=== PATIENT | female | born 1970 | race Caucasian/White ===

== ENCOUNTER 2016-09-02 18:44 | Emergency (ER) | payer MEDICAID, OTHER ==
[~2016-09-02] VITALS: Ht 170.2 cm; Wt 56.8 kg
[~2016-09-02 18:44] MED LIST: AMLO2.5T PO; FERR-89 PO; LURA80 PO
[2016-09-02 20:35] LABS: BASOPHILS % (AUTO) 0.1 % (0.0-2.0); EOSINOPHILS % (AUTO) 1.3 % (1.0-6.0); HEMATOCRIT 40.9 % (36-46); LYMPHOCYTES # (AUTO) 1.1 K/uL (1.0-4.8); LYMPHOCYTES % (AUTO) 17.1 % (22.0-44.0); MEAN CORPUSCULAR HEMOGLOBIN 26.3 pg (26.0-34.0); MEAN CORPUSCULAR HGB CONC 31.9 G/dL (31.0-37.0); MEAN CORPUSCULAR VOLUME 82 fL (80-100); MONOCYTES # (AUTO) 0.3 K/uL (0.1-1.0); MONOCYTES % (AUTO) 4.5 % (2.0-9.0); NEUTROPHILS # (AUTO) 5.1 K/uL (1.8-7.7); PLATELET COUNT (AUTO) 209 K/uL (150-450); RED BLOOD CELL COUNT(AUTO) 4.97 MIL/uL (4.00-5.20); RED CELL DISTRIBUTION WIDTH 16.8 % (11.5-14.5); WHITE BLOOD COUNT (AUTO) 6.6 K/uL (4.5-11.0)
[2016-09-02 20:51] LABS: ANION GAP 10 mmol/L (8-16); CALCIUM, TOTAL 8.9 mg/dL (8.8-10.5); CARBON DIOXIDE 25 mmol/L (22-29); CHLORIDE 103 mmol/L (98-107); CREATININE 0.71 mg/dL (0.60-1.30); GLOMERULAR FILTR. RATE CALC > 60 mL/min (>60); POTASSIUM 3.7 mmol/L (3.5-5.1); SODIUM SERUM 138 mmol/L (136-145); UREA NITROGEN, BLOOD 21 mg/dL (7-18)
[2016-09-02 20:57] LABS: ALANINE AMINOTRANSFERASE 27 U/L (12-78); ALBUMIN 4.2 g/dL (3.4-5.0); ASPARTATE AMINOTRANSFERASE 20 U/L (15-37); BILIRUBIN,TOTAL 0.6 mg/dL (0.1-1.0); TOTAL PROTEIN, SERUM 7.6 g/dL (6.4-8.2)
[2016-09-02] MEDS ORDERED: LORazepam 2 MG TABLET PO ONE (21:15)
[2016-09-02] MEDS ORDERED: HALOPERIDOL 5 MG TABLET PO ONE (21:15)
[2016-09-03 10:35] VITALS: BP 14/99
== END 2016-09-03 10:50 | disposition home or self-care (01) ==
LOC: EMS 18:49
DX: F29 Unspecified psychosis not due to a substance or known physiological condition (principal); F15.10 Other stimulant abuse, uncomplicated; F31.9 Bipolar disorder, unspecified; F20.9 Schizophrenia, unspecified; F12.90 Cannabis use, unspecified, uncomplicated; F11.90 Opioid use, unspecified, uncomplicated; F19.90 Other psychoactive substance use, unspecified, uncomplicated; Z88.8 Allergy status to other drugs, medicaments and biological substances
CPT/HCPCS: 36415; 80053; 80307; 84703; 85025; 99284; G0480

== ENCOUNTER 2016-10-01 15:37 | Emergency (ER) | payer OTHER ==
[~2016-10-01] VITALS: Ht 170.2 cm; Wt 68.1 kg
[2016-10-01 15:44] VITALS: BP 148/100
[2016-10-01] MEDS ORDERED: RISP.5 PO (15:51)
[2016-10-01 16:43] LABS: BASOPHILS % (AUTO) 0.4 % (0.0-2.0); EOSINOPHILS % (AUTO) 0.5 % (1.0-6.0); HEMATOCRIT 37.3 % (36-46); HEMOGLOBIN 12.6 g/dL (12.0-16.0); LYMPHOCYTES # (AUTO) 1.7 K/uL (1.0-4.8); LYMPHOCYTES % (AUTO) 28.8 % (22.0-44.0); MEAN CORPUSCULAR HEMOGLOBIN 27.5 pg (26.0-34.0); MEAN CORPUSCULAR HGB CONC 33.7 G/dL (31.0-37.0); MEAN CORPUSCULAR VOLUME 81 fL (80-100); MONOCYTES # (AUTO) 0.5 K/uL (0.1-1.0); MONOCYTES % (AUTO) 8.7 % (2.0-9.0); NEUTROPHILS # (AUTO) 3.7 K/uL (1.8-7.7); NEUTROPHILS % (AUTO) 61.6 % (40.0-70.0); PLATELET COUNT (AUTO) 209 K/uL (150-450); RED BLOOD CELL COUNT(AUTO) 4.59 MIL/uL (4.00-5.20); RED CELL DISTRIBUTION WIDTH 16.1 % (11.5-14.5)
[2016-10-01 16:54] LABS: ANION GAP 9 mmol/L (8-16); CALCIUM, TOTAL 8.8 mg/dL (8.8-10.5); CARBON DIOXIDE 25 mmol/L (22-29); CHLORIDE 106 mmol/L (98-107); CREATININE 0.72 mg/dL (0.60-1.30); GLOMERULAR FILTR. RATE CALC > 60 mL/min (>60); POTASSIUM 4.1 mmol/L (3.5-5.1); SODIUM SERUM 140 mmol/L (136-145); UREA NITROGEN, BLOOD 13 mg/dL (7-18)
[2016-10-01 17:00] LABS: ALANINE AMINOTRANSFERASE 29 U/L (12-78); ALBUMIN 4.2 g/dL (3.4-5.0); ASPARTATE AMINOTRANSFERASE 20 U/L (15-37); BILIRUBIN,TOTAL 0.4 mg/dL (0.1-1.0); TOTAL PROTEIN, SERUM 7.7 g/dL (6.4-8.2)
== END 2016-10-01 19:07 | disposition home or self-care (01) ==
LOC: EEVIPCON 15:39 → EMS 15:39
DX: F20.9 Schizophrenia, unspecified (principal); F15.10 Other stimulant abuse, uncomplicated; F31.9 Bipolar disorder, unspecified; F12.90 Cannabis use, unspecified, uncomplicated; F11.90 Opioid use, unspecified, uncomplicated; F19.90 Other psychoactive substance use, unspecified, uncomplicated; Z88.8 Allergy status to other drugs, medicaments and biological substances
CPT/HCPCS: 36415; 80053; 80307; 82962; 85025; 99284; G0480

== ENCOUNTER 2016-11-29 | Emergency (ER) | payer MEDICAID, OTHER ==
[~2016-11-29] VITALS: Ht 167.6 cm; Wt 56.0 kg
[~2016-11-29] MED LIST changes: -AMLO2.5T PO; -FERR-89 PO; -LURA80 PO; +RISP.5 PO
[2016-11-29 00:57] LABS: BASOPHILS % (AUTO) 0.7 % (0.0-2.0); EOSINOPHILS % (AUTO) 2.1 % (1.0-6.0); HEMATOCRIT 34.1 % (36-46); HEMOGLOBIN 11.6 g/dL (12.0-16.0); LYMPHOCYTES # (AUTO) 1.7 K/uL (1.0-4.8); LYMPHOCYTES % (AUTO) 29.3 % (22.0-44.0); MEAN CORPUSCULAR HEMOGLOBIN 28.2 pg (26.0-34.0); MEAN CORPUSCULAR HGB CONC 34.1 G/dL (31.0-37.0); MEAN CORPUSCULAR VOLUME 83 fL (80-100); MONOCYTES # (AUTO) 0.7 K/uL (0.1-1.0); MONOCYTES % (AUTO) 11.8 % (2.0-9.0); NEUTROPHILS # (AUTO) 3.2 K/uL (1.8-7.7); NEUTROPHILS % (AUTO) 56.1 % (40.0-70.0); PLATELET COUNT (AUTO) 175 K/uL (150-450); RED BLOOD CELL COUNT(AUTO) 4.13 MIL/uL (4.00-5.20); RED CELL DISTRIBUTION WIDTH 15.9 % (11.5-14.5); WHITE BLOOD COUNT (AUTO) 5.7 K/uL (4.5-11.0)
[2016-11-29] MEDS ORDERED: PERTUSS(ACELL),DIPH,TET VAC/PF 0.5 ML VIAL IM ONE (01:00)
[2016-11-29 01:05] LABS: ANION GAP 7 mmol/L (8-16); CALCIUM, TOTAL 8.6 mg/dL (8.8-10.5); CARBON DIOXIDE 27 mmol/L (22-29); CHLORIDE 106 mmol/L (98-107); CREATININE 0.67 mg/dL (0.60-1.30); GLOMERULAR FILTR. RATE CALC > 60 mL/min (>60); POTASSIUM 3.5 mmol/L (3.5-5.1); SODIUM SERUM 140 mmol/L (136-145); UREA NITROGEN, BLOOD 16 mg/dL (7-18)
[2016-11-29 01:13] LABS: ALANINE AMINOTRANSFERASE 19 U/L (12-78); ALBUMIN 3.3 g/dL (3.4-5.0); ASPARTATE AMINOTRANSFERASE 18 U/L (15-37); BILIRUBIN,TOTAL 0.3 mg/dL (0.1-1.0); TOTAL PROTEIN, SERUM 6.5 g/dL (6.4-8.2)
[2016-11-29] MEDS: MUPIROCIN CALCIUM 2% 22 GM OINTMENT TP ONE ×2 (01:25→01:29)
[2016-11-29 02:22] LABS: ADD UA MICROSCOPIC NO; APPEARANCE,URINE CLEAR (CLEAR); GLUCOSE, URINE (UA) NEGATIVE (NEGATIVE); KETONES,URINE NEGATIVE (NEGATIVE); LEUKOCYTE ESTERASE ,URINE NEGATIVE (NEGATIVE); OCCULT BLOOD,URINE NEGATIVE (NEGATIVE); PROTEIN,URINE NEGATIVE (NEGATIVE)
[2016-11-29 03:03] VITALS: BP 128/63
[2016-12-04] MEDS ORDERED: VITAD1000 PO (08:13)
[2016-12-04] MEDS ORDERED: HYDR-4031 PO (08:13)
== END 2016-11-29 04:02 | disposition home or self-care (01) ==
LOC: EMS 00:02
DX: S91.312A Laceration without foreign body, left foot, initial encounter (principal); F20.9 Schizophrenia, unspecified; F31.9 Bipolar disorder, unspecified; F15.10 Other stimulant abuse, uncomplicated; F12.90 Cannabis use, unspecified, uncomplicated; F11.90 Opioid use, unspecified, uncomplicated; Z88.8 Allergy status to other drugs, medicaments and biological substances; X58.XXXA Exposure to other specified factors, initial encounter; Y93.89 Activity, other specified; Y92.89 Other specified places as the place of occurrence of the external cause; Y99.8 Other external cause status
CPT/HCPCS: 36415; 80053; 80307; 81003; 84703; 85025; 90471; 90715; 99284; G0480

== ENCOUNTER 2017-02-12 09:47 | Inpatient (IN) | payer MEDICAID ==
[~2017-02-12] VITALS: Ht 167.6 cm; Wt 78.0 kg
[~2017-02-12 09:47] MED LIST changes: +HYDR-4031 PO; +VITAD1000 PO
[2017-02-12] MEDS ORDERED: HALOPERIDOL 5 MG TABLET PO PRN (11:00)
[2017-02-12] MEDS: RisperiDONE 3 MG TABLET PO SCH ×2 (11:00→16:34)
[2017-02-12] MEDS ORDERED: ZOLPIDEM TARTRATE 10 MG TABLET PO PRN (11:00)
[2017-02-12] MEDS ORDERED: RISP3TAB44 PO (11:05)
[2017-02-12 12:11] VITALS: BP 155/106
[2017-02-12] MEDS ORDERED: HALOPERIDOL LACTATE 5 MG/ML VIAL ONE (12:44)
[2017-02-12] MEDS ORDERED: DiphenhydrAMINE HCL 50 MG/ML VIAL ONE (12:44)
[2017-02-12] MEDS ORDERED: LORazepam 2 MG/ML VIAL ONE (12:44)
[2017-02-12] MEDS ORDERED: LORazepam 2 MG/ML VIAL IM ONE (12:45)
[2017-02-12] MEDS ORDERED: DiphenhydrAMINE HCL 50 MG/ML VIAL IM ONE (12:45)
[2017-02-12] MEDS ORDERED: HALOPERIDOL LACTATE 5 MG/ML VIAL IM ONE (12:45)
[2017-02-12] MEDS ORDERED: INFLUENZA VIRUS VACCINE QVS 2017-18 (3YR+)/PF 60 MCG/0.5 ML SYRINGE IM ONE (14:00)
[2017-02-12 16:19] VITALS: BP 114/73
[2017-02-13] MEDS: RisperiDONE 3 MG TABLET PO SCH ×2 (09:26→16:32)
[2017-02-13 16:08] VITALS: BP 153/65
[2017-02-14 07:13] VITALS: BP 140/62
[2017-02-14 08:34] VITALS: BP 102/69
[2017-02-14] MEDS: RisperiDONE 3 MG TABLET PO SCH ×2 (08:48→16:01)
[2017-02-14] MEDS ORDERED: DiphenhydrAMINE HCL 50 MG/ML VIAL IM ONE (12:00)
[2017-02-14 16:14] VITALS: BP 149/68
[2017-02-15 07:08] VITALS: BP 136/7
[2017-02-15] MEDS: RisperiDONE 3 MG TABLET PO SCH ×2 (08:03→16:59)
[2017-02-15 09:31] LABS: ALANINE AMINOTRANSFERASE 25 U/L (12-78); ALBUMIN 3.4 g/dL (3.4-5.0); ANION GAP 5 mmol/L (8-16); ASPARTATE AMINOTRANSFERASE 24 U/L (15-37); BILIRUBIN,TOTAL 0.3 mg/dL (0.1-1.0); CALCIUM, TOTAL 8.7 mg/dL (8.8-10.5); CARBON DIOXIDE 27 mmol/L (22-29); CHLORIDE 104 mmol/L (98-107); CHOL/HDL RATIO 2.4 (3.9-5.7); CREATININE 0.54 mg/dL (0.60-1.30); GLOMERULAR FILTR. RATE CALC > 60 mL/min (>60); POTASSIUM 3.9 mmol/L (3.5-5.1); SODIUM SERUM 136 mmol/L (136-145); THYROID STIMULATING HORMONE 0.78 uIU/mL (0.36-3.74); TOTAL PROTEIN, SERUM 6.7 g/dL (6.4-8.2); UREA NITROGEN, BLOOD 15 mg/dL (7-18)
[2017-02-15 16:08] VITALS: BP 109/73
[2017-02-15] MEDS: LORazepam 1 MG TABLET PO PRN (16:19)
[2017-02-16 04:04] VITALS: BP 130/74
[2017-02-16 07:58] LABS: BASOPHILS % (AUTO) 0.4 % (0.0-2.0); EOSINOPHILS % (AUTO) 2.4 % (1.0-6.0); HEMOGLOBIN 13.3 g/dL (12.0-16.0); LYMPHOCYTES # (AUTO) 1.5 K/uL (1.0-4.8); LYMPHOCYTES % (AUTO) 20.9 % (22.0-44.0); MEAN CORPUSCULAR HEMOGLOBIN 28.2 pg (26.0-34.0); MEAN CORPUSCULAR VOLUME 83 fL (80-100); MONOCYTES # (AUTO) 0.5 K/uL (0.1-1.0); MONOCYTES % (AUTO) 6.5 % (2.0-9.0); NEUTROPHILS # (AUTO) 5.1 K/uL (1.8-7.7); NEUTROPHILS % (AUTO) 69.8 % (40.0-70.0); PLATELET COUNT (AUTO) 202 K/uL (150-450); RED BLOOD CELL COUNT(AUTO) 4.71 MIL/uL (4.00-5.20); RED CELL DISTRIBUTION WIDTH 16.2 % (11.5-14.5); WHITE BLOOD COUNT (AUTO) 7.3 K/uL (4.5-11.0)
[2017-02-16] MEDS: RisperiDONE 3 MG TABLET PO SCH ×2 (08:20→16:12)
[2017-02-16 16:12] VITALS: BP 139/86
[2017-02-17 08:30] VITALS: BP 115/68
[2017-02-17] MEDS: RisperiDONE 3 MG TABLET PO SCH ×2 (09:28→16:30)
[2017-02-17 16:09] VITALS: BP 125/79
[2017-02-18 02:05] VITALS: BP 117/68
[2017-02-18] MEDS: RisperiDONE 3 MG TABLET PO SCH ×2 (08:16→16:10)
[2017-02-18 08:41] VITALS: BP 129/74
[2017-02-18 16:00] VITALS: BP 124/83
[2017-02-18] MEDS: LORazepam 1 MG TABLET PO PRN (16:10)
[2017-02-19 06:21] VITALS: BP 127/68
[2017-02-19] MEDS: RisperiDONE 3 MG TABLET PO SCH ×2 (08:26→16:16)
[2017-02-19] MEDS: LORazepam 1 MG TABLET PO PRN (08:26)
[2017-02-19 08:50] VITALS: BP 123/80
[2017-02-19 16:34] VITALS: BP 118/63
== END 2017-02-19 19:30 | disposition home or self-care (01) | DRG 750 ==
LOC: B3A 10:59
PROVIDERS: ADMIT Psychiatry & Neurology Psychiatry; ATTEND Psychiatry & Neurology Psychiatry
DX: F25.9 Schizoaffective disorder, unspecified (principal); J44.9 Chronic obstructive pulmonary disease, unspecified; D64.9 Anemia, unspecified; F15.90 Other stimulant use, unspecified, uncomplicated; Z88.8 Allergy status to other drugs, medicaments and biological substances; Z87.440 Personal history of urinary (tract) infections; Z28.21 Immunization not carried out because of patient refusal
CPT/HCPCS: 82306; 84436; 84439; 84443; 90471; J1200; J1630; J2060

== ENCOUNTER 2017-03-04 09:51 | Inpatient (IN) | payer MEDICAID, OTHER ==
[~2017-03-04] VITALS: Ht 167.6 cm; Wt 74.1 kg
[~2017-03-04 09:51] MED LIST changes: -HYDR-4031 PO; -RISP.5 PO; +RISP3TAB44 PO; -VITAD1000 PO
[2017-03-04 10:38] LABS: BASOPHILS # (AUTO) 0.02 K/uL (0.00-0.20); BASOPHILS % (AUTO) 0.4 % (0.0-2.0); EOSINOPHILS # (AUTO) 0.01 K/uL (0.00-0.70); HEMATOCRIT 36.9 % (36-46); HEMOGLOBIN 12.2 g/dL (12.0-16.0); LYMPHOCYTES # (AUTO) 1.3 K/uL (1.0-4.8); LYMPHOCYTES % (AUTO) 21.6 % (22.0-44.0); MEAN CORPUSCULAR HEMOGLOBIN 27.7 pg (26.0-34.0); MEAN CORPUSCULAR VOLUME 84 fL (80-100); MONOCYTES # (AUTO) 0.5 K/uL (0.1-1.0); MONOCYTES % (AUTO) 7.5 % (2.0-9.0); NEUTROPHILS # (AUTO) 4.3 K/uL (1.8-7.7); NEUTROPHILS % (AUTO) 70.4 % (40.0-70.0); PLATELET COUNT (AUTO) 188 K/uL (150-450); RED BLOOD CELL COUNT(AUTO) 4.39 MIL/uL (4.00-5.20); RED CELL DISTRIBUTION WIDTH 16.8 % (11.5-14.5); WHITE BLOOD COUNT (AUTO) 6.1 K/uL (4.5-11.0)
[2017-03-04 10:52] LABS: ANION GAP 8 mmol/L (8-16); CALCIUM, TOTAL 8.7 mg/dL (8.8-10.5); CARBON DIOXIDE 27 mmol/L (22-29); CHLORIDE 100 mmol/L (98-107); CREATININE 0.52 mg/dL (0.60-1.30); GLOMERULAR FILTR. RATE CALC > 60 mL/min (>60); POTASSIUM 3.3 mmol/L (3.5-5.1); SODIUM SERUM 135 mmol/L (136-145); UREA NITROGEN, BLOOD 7 mg/dL (7-18)
[2017-03-04 10:57] LABS: ALANINE AMINOTRANSFERASE 33 U/L (12-78); ALBUMIN 3.6 g/dL (3.4-5.0); ASPARTATE AMINOTRANSFERASE 25 U/L (15-37); BILIRUBIN,TOTAL 0.4 mg/dL (0.1-1.0)
[2017-03-04] MEDS ORDERED: LORazepam 2 MG TABLET PO PRN (11:15)
[2017-03-04] MEDS ORDERED: HALOPERIDOL 5 MG TABLET PO PRN (11:15)
[2017-03-04] MEDS ORDERED: ZOLPIDEM TARTRATE 10 MG TABLET PO PRN (11:15)
[2017-03-04] MEDS ORDERED: HALOPERIDOL LACTATE 5 MG/ML VIAL IM ONE (11:30)
[2017-03-04] MEDS ORDERED: DiphenhydrAMINE HCL 50 MG/ML VIAL IM ONE (11:30)
[2017-03-04] MEDS ORDERED: LORazepam 2 MG/ML VIAL IM ONE (11:30)
[2017-03-04] MEDS ORDERED: POTASSIUM CHLORIDE 20 MEQ ER TABLET PO ONE (11:45)
[2017-03-04 12:16] VITALS: BP 132/86
[2017-03-04] MEDS: RisperiDONE 3 MG TABLET PO SCH (17:00)
[2017-03-05] MEDS ORDERED: INFLUENZA VIRUS VACCINE QVS 2017-18 (3YR+)/PF 60 MCG/0.5 ML SYRINGE IM ONE (07:15)
[2017-03-05] MEDS ORDERED: -PHARMACY VACCINE NOTE- MISC ONE ×2 (07:15)
[2017-03-05] MEDS: RisperiDONE 3 MG TABLET PO SCH ×2 (08:35→17:05)
[2017-03-05] MEDS: CHOLECALCIFEROL (VIT D3) 1,000 UNITS TABLET PO SCH (08:35)
[2017-03-05 18:03] VITALS: BP 131/88
[2017-03-06 08:26] VITALS: BP 107/58
[2017-03-06] MEDS: CHOLECALCIFEROL (VIT D3) 1,000 UNITS TABLET PO SCH (08:31)
[2017-03-06] MEDS: RisperiDONE 3 MG TABLET PO SCH ×2 (08:31→16:36)
[2017-03-07 08:29] VITALS: BP 113/69
[2017-03-07] MEDS: CHOLECALCIFEROL (VIT D3) 1,000 UNITS TABLET PO SCH (09:34)
[2017-03-07] MEDS: RisperiDONE 3 MG TABLET PO SCH (09:34)
[2017-03-07] MEDS ORDERED: CHOL200016 PO (10:17)
== END 2017-03-07 10:48 | disposition home or self-care (01) | DRG 750 ==
LOC: EMS 09:53 → 3EC 11:46
PROVIDERS: ADMIT Psychiatry & Neurology Psychiatry; ATTEND Psychiatry & Neurology Psychiatry
DX: F25.0 Schizoaffective disorder, bipolar type (principal); R45.851 Suicidal ideations; Z91.19 Patient's noncompliance with other medical treatment and regimen; F15.10 Other stimulant abuse, uncomplicated; F12.90 Cannabis use, unspecified, uncomplicated; I34.1 Nonrheumatic mitral (valve) prolapse; F11.90 Opioid use, unspecified, uncomplicated; E87.6 Hypokalemia; Z59.0 Homelessness; Z87.440 Personal history of urinary (tract) infections; Z88.8 Allergy status to other drugs, medicaments and biological substances; Z79.899 Other long term (current) drug therapy
CPT/HCPCS: 87081; 96372; 99285; G0480; J1200; J1630; J2060

== ENCOUNTER 2017-04-22 08:08 | Inpatient (IN) | payer MEDICAID ==
[~2017-04-22] VITALS: Ht 177.8 cm; Wt 73.1 kg
[~2017-04-22 08:08] MED LIST changes: +CHOL200016 PO
[2017-04-22 09:00] VITALS: BP 153/93
[2017-04-22] MEDS ORDERED: ZOLPIDEM TARTRATE 10 MG TABLET PO PRN (09:00)
[2017-04-22] MEDS ORDERED: INFLUENZA VIRUS VACCINE QVS 2017-18 (3YR+)/PF 60 MCG/0.5 ML SYRINGE IM ONE (10:15)
[2017-04-22] MEDS: RisperiDONE 3 MG TABLET PO SCH ×2 (10:46→16:45)
[2017-04-22 16:04] VITALS: BP 109/60
[2017-04-23 08:27] LABS: BASOPHILS % (AUTO) 0.2 % (0.0-2.0); EOSINOPHILS % (AUTO) 2.6 % (1.0-6.0); HEMATOCRIT 37.4 % (36-46); HEMOGLOBIN 12.6 g/dL (12.0-16.0); LYMPHOCYTES # (AUTO) 1.6 K/uL (1.0-4.8); LYMPHOCYTES % (AUTO) 24.6 % (22.0-44.0); MEAN CORPUSCULAR HEMOGLOBIN 28.1 pg (26.0-34.0); MEAN CORPUSCULAR HGB CONC 33.6 G/dL (31.0-37.0); MEAN CORPUSCULAR VOLUME 84 fL (80-100); MONOCYTES # (AUTO) 0.5 K/uL (0.1-1.0); MONOCYTES % (AUTO) 7.4 % (2.0-9.0); NEUTROPHILS # (AUTO) 4.2 K/uL (1.8-7.7); NEUTROPHILS % (AUTO) 65.2 % (40.0-70.0); PLATELET COUNT (AUTO) 183 K/uL (150-450); RED BLOOD CELL COUNT(AUTO) 4.47 MIL/uL (4.00-5.20); RED CELL DISTRIBUTION WIDTH 16.8 % (11.5-14.5)
[2017-04-23 08:43] LABS: HEMOGLOBIN A1C 5.7 % (4.5-6.2)
[2017-04-23 08:44] VITALS: BP 110/60
[2017-04-23 08:57] LABS: ALANINE AMINOTRANSFERASE 21 U/L (12-78); ALBUMIN 3.4 g/dL (3.4-5.0); ALKALINE PHOSPHATASE 50 U/L (46-116); ANION GAP 5 mmol/L (8-16); ASPARTATE AMINOTRANSFERASE 18 U/L (15-37); BILIRUBIN,TOTAL 0.4 mg/dL (0.1-1.0); CALCIUM, TOTAL 8.8 mg/dL (8.8-10.5); CARBON DIOXIDE 28 mmol/L (22-29); CHLORIDE 104 mmol/L (98-107); CHOL/HDL RATIO 1.8 (3.9-5.7); CHOLESTEROL 142 mg/dL (131-200); CREATININE 0.65 mg/dL (0.60-1.30); FREE T4 (FREE THYROXINE) 1.01 ng/dL (0.76-1.46); GLOMERULAR FILTR. RATE CALC > 60 mL/min (>60); GLUCOSE,RANDOM 88 mg/dL (70-110); HCG,QUANTITATIVE < 1 mIU/mL (0-6); HDL CHOLESTEROL 80 mg/dL (40-60); LDL CHOL (CALC.) 57 mg/dL (0-130); SODIUM SERUM 137 mmol/L (136-145); THYROID STIMULATING HORMONE 0.61 uIU/mL (0.36-3.74); TOTAL PROTEIN, SERUM 6.6 g/dL (6.4-8.2); TRIGLYCERIDES 26 mg/dL (15-150); UREA NITROGEN, BLOOD 19 mg/dL (7-18)
[2017-04-23] MEDS: RisperiDONE 3 MG TABLET PO SCH ×2 (09:20→16:53)
[2017-04-23] MEDS: CHOLECALCIFEROL (VIT D3) 1,000 UNITS TABLET PO SCH (09:20)
[2017-04-23 16:05] VITALS: BP 118/66
[2017-04-24 07:19] VITALS: BP 121/78
[2017-04-24] MEDS: RisperiDONE 3 MG TABLET PO SCH ×2 (08:51→16:13)
[2017-04-24] MEDS: CHOLECALCIFEROL (VIT D3) 1,000 UNITS TABLET PO SCH (08:51)
[2017-04-24 16:30] VITALS: BP 128/73
[2017-04-24] MEDS: HALOPERIDOL 5 MG TABLET PO PRN (16:49)
[2017-04-24] MEDS: LORazepam 2 MG TABLET PO PRN (16:49)
[2017-04-25 06:41] VITALS: BP 115/68
[2017-04-25 08:00] VITALS: BP 114/72
[2017-04-25] MEDS: CHOLECALCIFEROL (VIT D3) 1,000 UNITS TABLET PO SCH (08:38)
[2017-04-25] MEDS: RisperiDONE 3 MG TABLET PO SCH ×2 (08:38→17:02)
[2017-04-25] MEDS: LORazepam 2 MG TABLET PO PRN ×2 (08:38→17:02)
[2017-04-25 16:24] VITALS: BP 124/76
[2017-04-25] MEDS: HALOPERIDOL 5 MG TABLET PO PRN (17:02)
[2017-04-26] MEDS: LORazepam 2 MG TABLET PO PRN ×2 (08:21→16:12)
[2017-04-26] MEDS: CHOLECALCIFEROL (VIT D3) 1,000 UNITS TABLET PO SCH (08:21)
[2017-04-26] MEDS: RisperiDONE 3 MG TABLET PO SCH ×2 (08:22→17:06)
[2017-04-26 08:34] VITALS: BP 121/63
[2017-04-26] MEDS: HALOPERIDOL 5 MG TABLET PO PRN ×2 (09:00→16:12)
[2017-04-26 16:14] VITALS: BP 135/81
[2017-04-27] MEDS: LORazepam 2 MG TABLET PO PRN ×2 (08:39→16:37)
[2017-04-27] MEDS: CHOLECALCIFEROL (VIT D3) 1,000 UNITS TABLET PO SCH (08:39)
[2017-04-27] MEDS: RisperiDONE 3 MG TABLET PO SCH ×2 (08:39→16:37)
[2017-04-27 08:53] VITALS: BP 112/59
[2017-04-27] MEDS: HALOPERIDOL 5 MG TABLET PO PRN ×2 (09:35→16:37)
[2017-04-27 16:19] VITALS: BP 127/89
[2017-04-28 07:18] VITALS: BP 118/62
[2017-04-28] MEDS: LORazepam 2 MG TABLET PO PRN (08:11)
[2017-04-28] MEDS: RisperiDONE 3 MG TABLET PO SCH (08:11)
[2017-04-28] MEDS: CHOLECALCIFEROL (VIT D3) 1,000 UNITS TABLET PO SCH (08:11)
[2017-04-28 08:44] VITALS: BP 116/68
== END 2017-04-28 11:00 | disposition home or self-care (01) | DRG 750 ==
LOC: B3A 08:59
PROVIDERS: ADMIT Psychiatry & Neurology Psychiatry; ATTEND Psychiatry & Neurology Psychiatry
DX: F20.0 Paranoid schizophrenia (principal); Z59.0 Homelessness; F15.90 Other stimulant use, unspecified, uncomplicated; I34.1 Nonrheumatic mitral (valve) prolapse; Z87.440 Personal history of urinary (tract) infections; Z88.8 Allergy status to other drugs, medicaments and biological substances; Z28.82 Immunization not carried out because of caregiver refusal
CPT/HCPCS: 83036; 84439; 84443

== ENCOUNTER 2017-07-07 10:20 | Inpatient (IN) | payer MEDICAID, OTHER ==
[~2017-07-07] VITALS: Ht 165.1 cm; Wt 71.2 kg
[~2017-07-07 10:20] MED LIST changes: -CHOL200016 PO
[2017-07-07] MEDS ORDERED: DiphenhydrAMINE HCL 50 MG/ML VIAL IM ONE (11:00)
[2017-07-07] MEDS ORDERED: LORazepam 2 MG/ML VIAL IM ONE (11:00)
[2017-07-07] MEDS ORDERED: HALOPERIDOL LACTATE 5 MG/ML VIAL IM ONE (11:00)
[2017-07-07 11:13] LABS: BASOPHILS % (AUTO) 0.6 % (0.0-2.0); EOSINOPHILS % (AUTO) 1.2 % (1.0-6.0); HEMATOCRIT 38.8 % (36-46); HEMOGLOBIN 13.2 g/dL (12.0-16.0); LYMPHOCYTES # (AUTO) 2.1 K/uL (1.0-4.8); MEAN CORPUSCULAR VOLUME 82 fL (80-100); MONOCYTES # (AUTO) 0.5 K/uL (0.1-1.0); NEUTROPHILS # (AUTO) 2.8 K/uL (1.8-7.7); NEUTROPHILS % (AUTO) 51.2 % (40.0-70.0); PLATELET COUNT (AUTO) 247 K/uL (150-450); RED BLOOD CELL COUNT(AUTO) 4.71 MIL/uL (4.00-5.20)
[2017-07-07 11:25] LABS: ANION GAP 7 mmol/L (8-16); CALCIUM, TOTAL 9.1 mg/dL (8.8-10.5); CARBON DIOXIDE 29 mmol/L (22-29); CHLORIDE 100 mmol/L (98-107); CREATININE 0.65 mg/dL (0.60-1.30); GLOMERULAR FILTR. RATE CALC > 60 mL/min (>60); GLUCOSE,RANDOM 103 mg/dL (70-110); POTASSIUM 4.2 mmol/L (3.5-5.1); SODIUM SERUM 136 mmol/L (136-145); UREA NITROGEN, BLOOD 13 mg/dL (7-18)
[2017-07-07 11:31] LABS: ALANINE AMINOTRANSFERASE 19 U/L (12-78); ALBUMIN 3.7 g/dL (3.4-5.0); ALKALINE PHOSPHATASE 57 U/L (46-116); ASPARTATE AMINOTRANSFERASE 18 U/L (15-37); BILIRUBIN,TOTAL 0.4 mg/dL (0.1-1.0); TOTAL PROTEIN, SERUM 7.2 g/dL (6.4-8.2)
[2017-07-07 12:55] VITALS: BP 132/77
[2017-07-07 16:20] VITALS: BP 156/99
[2017-07-08 08:50] VITALS: BP 139/64
[2017-07-08] MEDS: LORazepam 2 MG TABLET PO PRN ×2 (10:38→16:49)
[2017-07-08] MEDS: HALOPERIDOL 5 MG TABLET PO PRN ×2 (10:38→16:49)
[2017-07-08] MEDS ORDERED: ACETAMINOPHEN 325 MG TABLET PO PRN (16:45)
[2017-07-08] MEDS ORDERED: ALBUTEROL SULFATE HFA 90 MCG/PUFF 8 GM INHALER IH PRN (16:45)
[2017-07-08] MEDS ORDERED: IBUPROFEN 400 MG TABLET PO PRN (16:45)
[2017-07-08] MEDS: RisperiDONE 3 MG TABLET PO SCH (20:15)
[2017-07-09 06:25] VITALS: BP 124/92
[2017-07-09] MEDS: RisperiDONE 3 MG TABLET PO SCH ×2 (08:32→21:13)
[2017-07-09 08:47] VITALS: BP 132/89
[2017-07-09] MEDS: HALOPERIDOL 5 MG TABLET PO PRN ×2 (08:53→20:15)
[2017-07-09] MEDS: LORazepam 2 MG TABLET PO PRN ×2 (08:54→20:15)
[2017-07-09 16:15] VITALS: BP 128/84
[2017-07-10 08:23] VITALS: BP 129/75
[2017-07-10] MEDS: RisperiDONE 3 MG TABLET PO SCH ×2 (08:59→21:03)
[2017-07-10 09:05] LABS: HEMOGLOBIN A1C 5.6 % (4.5-6.2)
[2017-07-10 09:12] LABS: THYROID STIMULATING HORMONE 1.21 uIU/mL (0.36-3.74)
[2017-07-10] MEDS: LORazepam 2 MG TABLET PO PRN (09:14)
[2017-07-10] MEDS: HALOPERIDOL 5 MG TABLET PO PRN (09:14)
[2017-07-10 16:19] VITALS: BP 132/87
[2017-07-11 02:15] VITALS: BP 145/94
[2017-07-11 08:30] VITALS: BP 123/90
[2017-07-11] MEDS: HALOPERIDOL 5 MG TABLET PO PRN ×2 (08:32→17:16)
[2017-07-11] MEDS: RisperiDONE 3 MG TABLET PO SCH ×2 (08:32→21:01)
[2017-07-11] MEDS: LORazepam 2 MG TABLET PO PRN ×2 (08:32→17:16)
[2017-07-11] MEDS ORDERED: LOPERAMIDE HCL 2 MG CAPSULE PO PRN (09:30)
[2017-07-11 16:48] VITALS: BP 130/89
[2017-07-11] MEDS: ZOLPIDEM TARTRATE 10 MG TABLET PO PRN (21:06)
[2017-07-12 06:33] VITALS: BP 120/85
[2017-07-12 08:00] VITALS: BP 116/80
[2017-07-12] MEDS: HALOPERIDOL 5 MG TABLET PO PRN (08:13)
[2017-07-12] MEDS: LORazepam 2 MG TABLET PO PRN (08:13)
[2017-07-12] MEDS: RisperiDONE 3 MG TABLET PO SCH ×2 (08:13→21:29)
[2017-07-12 16:00] VITALS: BP 119/86
[2017-07-12] MEDS: ZOLPIDEM TARTRATE 10 MG TABLET PO PRN (22:01)
[2017-07-13 04:04] VITALS: BP 132/90
[2017-07-13] MEDS ORDERED: RISP3 PO ×2 (08:26→08:41)
[2017-07-13 08:42] VITALS: BP 127/84
[2017-07-13] MEDS: LORazepam 2 MG TABLET PO PRN (10:45)
[2017-07-13] MEDS: RisperiDONE 3 MG TABLET PO SCH (10:45)
== END 2017-07-13 13:30 | disposition home or self-care (01) | DRG 750 ==
LOC: EMS 10:22 → B3A 11:58
DX: F20.0 Paranoid schizophrenia (principal); E11.9 Type 2 diabetes mellitus without complications; I10 Essential (primary) hypertension; F10.10 Alcohol abuse, uncomplicated; J44.9 Chronic obstructive pulmonary disease, unspecified; F19.10 Other psychoactive substance abuse, uncomplicated; Y90.0 Blood alcohol level of less than 20 mg/100 ml; F12.90 Cannabis use, unspecified, uncomplicated; Z59.0 Homelessness; Z79.899 Other long term (current) drug therapy; Z87.440 Personal history of urinary (tract) infections; Z88.8 Allergy status to other drugs, medicaments and biological substances; Z71.41 Alcohol abuse counseling and surveillance of alcoholic; Z71.51 Drug abuse counseling and surveillance of drug abuser
CPT/HCPCS: 83036; 84443; 96372; 99285; G0480; J1200; J1630; J2060; J3535

== ENCOUNTER 2017-11-03 16:05 | Inpatient (IN) | payer MEDICAID ==
[~2017-11-03] VITALS: Ht 172.7 cm; Wt 83.0 kg
[~2017-11-03 16:05] MED LIST changes: +RISP3 PO; -RISP3TAB44 PO
[2017-11-03 16:48] VITALS: BP 149/92
[2017-11-03 17:19] VITALS: BP 134/79
[2017-11-03] MEDS ORDERED: PNEUMOCOCCAL VACCINE POLYVALENT 0.5 ML VIAL [PPSV23] IM ONE (17:45)
[2017-11-03] MEDS ORDERED: MAGNESIUM HYDROXIDE SUSPENSION 30 ML UDCUP PO PRN (19:00)
[2017-11-03] MEDS ORDERED: CloNIDine HCL 0.1 MG TABLET PO PRN (19:00)
[2017-11-03] MEDS ORDERED: ACETAMINOPHEN 325 MG TABLET PO PRN (19:00)
[2017-11-03] MEDS ORDERED: DOCUSATE SODIUM 100 MG CAPSULE PO PRN (19:00)
[2017-11-03] MEDS ORDERED: LOPERAMIDE HCL 2 MG CAPSULE PO PRN (19:00)
[2017-11-03] MEDS ORDERED: MAG HYDROX/AL HYDROX/SIMETH ES 30 ML SUSPENSION UDCUP PO PRN (19:00)
[2017-11-03] MEDS ORDERED: ALBUTEROL SULFATE HFA 90 MCG/PUFF 8 GM INHALER IH PRN (19:00)
[2017-11-03] MEDS ORDERED: ONDANSETRON HCL 4 MG TABLET PO PRN (19:00)
[2017-11-03] MEDS ORDERED: PETROLATUM,WHITE 71 GM JELLY TP PRN (19:00)
[2017-11-03] MEDS ORDERED: IBUPROFEN 400 MG TABLET PO PRN (19:00)
[2017-11-04 01:22] VITALS: BP 135/76
[2017-11-04] MEDS: ZOLPIDEM TARTRATE 10 MG TABLET PO PRN ×2 (01:43→20:57)
[2017-11-04 01:58] LABS: GLUCOMETER DEV NAME(LOC) BV3S 2; GLUCOSE,POINT OF CARE 96 MG/DL (70-110)
[2017-11-04 07:53] LABS: BASOPHILS % (AUTO) 0.6 % (0.0-2.0); EOSINOPHILS % (AUTO) 3.9 % (1.0-6.0); HEMATOCRIT 40.5 % (36-46); HEMOGLOBIN 13.9 g/dL (12.0-16.0); LYMPHOCYTES # (AUTO) 2.2 K/uL (1.0-4.8); LYMPHOCYTES % (AUTO) 32.5 % (22.0-44.0); MEAN CORPUSCULAR HEMOGLOBIN 29.1 pg (26.0-34.0); MEAN CORPUSCULAR HGB CONC 34.4 G/dL (31.0-37.0); MEAN CORPUSCULAR VOLUME 85 fL (80-100); MONOCYTES # (AUTO) 0.5 K/uL (0.1-1.0); MONOCYTES % (AUTO) 7.7 % (2.0-9.0); NEUTROPHILS # (AUTO) 3.8 K/uL (1.8-7.7); NEUTROPHILS % (AUTO) 55.3 % (40.0-70.0); PLATELET COUNT (AUTO) 233 K/uL (150-450); RED BLOOD CELL COUNT(AUTO) 4.79 MIL/uL (4.00-5.20); RED CELL DISTRIBUTION WIDTH 15.3 % (11.5-14.5)
[2017-11-04 07:58] LABS: HEMOGLOBIN A1C 5.4 % (4.5-6.2)
[2017-11-04 08:19] LABS: ALANINE AMINOTRANSFERASE 20 U/L (12-78); ALBUMIN 3.7 g/dL (3.4-5.0); ALKALINE PHOSPHATASE 58 U/L (46-116); ANION GAP 8 mmol/L (8-16); ASPARTATE AMINOTRANSFERASE 20 U/L (15-37); BILIRUBIN,TOTAL 0.6 mg/dL (0.1-1.0); CALCIUM, TOTAL 8.8 mg/dL (8.8-10.5); CARBON DIOXIDE 26 mmol/L (22-29); CHLORIDE 103 mmol/L (98-107); CHOL/HDL RATIO 2.1 (3.9-5.7); CHOLESTEROL 153 mg/dL (131-200); FREE T4 (FREE THYROXINE) 0.96 ng/dL (0.76-1.46); GLOMERULAR FILTR. RATE CALC > 60 mL/min (>60); GLUCOSE,RANDOM 106 mg/dL (70-110); HDL CHOLESTEROL 73 mg/dL (40-60); LDL CHOL (CALC.) 66 mg/dL (0-130); POTASSIUM 3.8 mmol/L (3.5-5.1); SODIUM SERUM 137 mmol/L (136-145); THYROID STIMULATING HORMONE 0.59 uIU/mL (0.36-3.74); TOTAL PROTEIN, SERUM 7.1 g/dL (6.4-8.2); TRIGLYCERIDES 70 mg/dL (15-150); UREA NITROGEN, BLOOD 15 mg/dL (7-18)
[2017-11-04 08:31] VITALS: BP 121/70
[2017-11-04] MEDS: LORazepam 2 MG TABLET PO PRN ×2 (09:46→16:49)
[2017-11-04] MEDS: RisperiDONE 3 MG TABLET PO SCH ×2 (09:46→16:49)
[2017-11-04 16:24] VITALS: BP 121/74
[2017-11-05 00:09] LABS: GLUCOMETER DEV NAME(LOC) BV3S 2; GLUCOSE,POINT OF CARE 88 MG/DL (70-110)
[2017-11-05 06:40] VITALS: BP 132/72
[2017-11-05 07:06] VITALS: BP 115/68
[2017-11-05 08:11] VITALS: BP 143/82
[2017-11-05] MEDS: RisperiDONE 3 MG TABLET PO SCH ×2 (08:11→16:25)
[2017-11-05] MEDS: LORazepam 2 MG TABLET PO PRN ×2 (08:11→16:25)
[2017-11-05 16:03] VITALS: BP 133/78
[2017-11-06 05:17] VITALS: BP 125/83
[2017-11-06] MEDS: LORazepam 2 MG TABLET PO PRN ×2 (08:45→16:26)
[2017-11-06] MEDS: RisperiDONE 3 MG TABLET PO SCH ×2 (08:45→16:03)
[2017-11-06 16:06] VITALS: BP 117/78
[2017-11-07 06:40] VITALS: BP 136/87
[2017-11-07 08:41] VITALS: BP 116/71
[2017-11-07] MEDS: RisperiDONE 3 MG TABLET PO SCH ×2 (09:07→16:54)
[2017-11-07] MEDS: LORazepam 2 MG TABLET PO PRN ×2 (10:00→18:40)
[2017-11-07] MEDS ORDERED: BuPROPion HCL 75 MG TABLET PO SCH (13:30)
[2017-11-07] MEDS: BuPROPion HCL XL 150 MG ER TABLET PO SCH (14:03)
[2017-11-07 16:50] VITALS: BP 121/78
[2017-11-08 00:10] VITALS: BP 110/63
[2017-11-08] MEDS: RisperiDONE 3 MG TABLET PO SCH (08:25)
[2017-11-08] MEDS: BuPROPion HCL XL 150 MG ER TABLET PO SCH (08:25)
[2017-11-08 08:30] VITALS: BP 140/77
[2017-11-08 10:32] VITALS: BP 131/80
[2017-11-08] MEDS ORDERED: RISP3 PO (13:32)
[2017-11-08] MEDS ORDERED: BUPR-93 PO (13:32)
== END 2017-11-08 14:25 | disposition home or self-care (01) | DRG 750 ==
LOC: B3A 16:22
PROVIDERS: ADMIT Psychiatry & Neurology Child & Adolescent Psychiatry; ATTEND Psychiatry & Neurology Child & Adolescent Psychiatry
PROC: 3E0234Z Introduction of Serum, Toxoid and Vaccine into Muscle, Percutaneous Approach (ICD-10-PCS; principal; 2017-11-04)
DX: F25.1 Schizoaffective disorder, depressive type (principal); E11.9 Type 2 diabetes mellitus without complications; I10 Essential (primary) hypertension; F19.10 Other psychoactive substance abuse, uncomplicated; J44.9 Chronic obstructive pulmonary disease, unspecified; F41.9 Anxiety disorder, unspecified; R45.87 Impulsiveness; Z88.8 Allergy status to other drugs, medicaments and biological substances; Z71.51 Drug abuse counseling and surveillance of drug abuser; Z23 Encounter for immunization; Z91.5 Personal history of self-harm; Z59.0 Homelessness; Z79.899 Other long term (current) drug therapy
CPT/HCPCS: 83036; 84439; 84443; 87081; 90471

== ENCOUNTER 2017-12-14 21:12 | Inpatient (IN) | payer MEDICAID ==
[~2017-12-14] VITALS: Ht 170.2 cm; Wt 84.0 kg
[~2017-12-14 21:12] MED LIST changes: +BUPR-93 PO
[2017-12-14 21:49] VITALS: BP 132/89
[2017-12-14] MEDS ORDERED: -PHARMACY VACCINE NOTE- MISC ONE (22:00)
[2017-12-15 00:06] VITALS: BP 130/78
[2017-12-15] MEDS: ZOLPIDEM TARTRATE 10 MG TABLET PO PRN (00:14)
[2017-12-15 08:24] VITALS: BP 124/77
[2017-12-15 09:18] LABS: HEMOGLOBIN A1C 5.4 % (4.5-6.2)
[2017-12-15 09:32] LABS: ALANINE AMINOTRANSFERASE 19 U/L (12-78); ALBUMIN 3.4 g/dL (3.4-5.0); ALKALINE PHOSPHATASE 59 U/L (46-116); ANION GAP 8 mmol/L (8-16); ASPARTATE AMINOTRANSFERASE 18 U/L (15-37); BILIRUBIN,TOTAL 0.5 mg/dL (0.1-1.0); CALCIUM, TOTAL 8.6 mg/dL (8.8-10.5); CARBON DIOXIDE 24 mmol/L (22-29); CHLORIDE 106 mmol/L (98-107); CHOL/HDL RATIO 2.1 (3.9-5.7); CHOLESTEROL 151 mg/dL (131-200); CREATININE 0.56 mg/dL (0.60-1.30); FREE T4 (FREE THYROXINE) 0.75 ng/dL (0.76-1.46); GLOMERULAR FILTR. RATE CALC > 60 mL/min (>60); GLUCOSE,RANDOM 89 mg/dL (70-110); HCG,QUANTITATIVE < 1 mIU/mL (0-6); HDL CHOLESTEROL 72 mg/dL (40-60); LDL CHOL (CALC.) 69 mg/dL (0-130); POTASSIUM 3.8 mmol/L (3.5-5.1); SODIUM SERUM 138 mmol/L (136-145); THYROID STIMULATING HORMONE 0.78 uIU/mL (0.36-3.74); TOTAL PROTEIN, SERUM 6.6 g/dL (6.4-8.2); TRIGLYCERIDES 51 mg/dL (15-150); UREA NITROGEN, BLOOD 13 mg/dL (7-18)
[2017-12-15 16:19] VITALS: BP 115/60
[2017-12-16] MEDS ORDERED: ACETAMINOPHEN 325 MG TABLET PO PRN
[2017-12-16] MEDS ORDERED: BENZOCAINE/MENTHOL LOZENGE MM PRN
[2017-12-16] MEDS ORDERED: IBUPROFEN 600 MG TABLET PO PRN
[2017-12-16] MEDS ORDERED: MAG HYDROX/AL HYDROX/SIMETH ES 30 ML SUSPENSION UDCUP PO PRN
[2017-12-16] MEDS ORDERED: ONDANSETRON HCL 4 MG TABLET PO PRN
[2017-12-16] MEDS ORDERED: INSULIN LISPRO 100 UNITS/ML SQ PRN
[2017-12-16] MEDS ORDERED: BACITRACIN 28.4 GM OINTMENT TP PRN
[2017-12-16] MEDS ORDERED: GLUCAGON,HUMAN RECOMBINANT 1 MG VIAL IM PRN
[2017-12-16] MEDS ORDERED: PETROLATUM,WHITE 71 GM JELLY TP PRN
[2017-12-16] MEDS ORDERED: MAGNESIUM HYDROXIDE SUSPENSION 30 ML UDCUP PO PRN
[2017-12-16] MEDS ORDERED: LOPERAMIDE HCL 2 MG CAPSULE PO PRN
[2017-12-16] MEDS ORDERED: CloNIDine HCL 0.1 MG TABLET PO PRN
[2017-12-16 08:34] VITALS: BP 123/57
[2017-12-16] MEDS: OMEPRAZOLE 20 MG CAPSULE PO SCH (09:18)
[2017-12-16] MEDS: RisperiDONE 3 MG TABLET PO SCH ×2 (09:18→16:43)
[2017-12-16] MEDS: BuPROPion HCL XL 150 MG ER TABLET PO SCH (09:18)
[2017-12-16] MEDS: DOCUSATE SODIUM 100 MG CAPSULE PO SCH (09:18)
[2017-12-16 16:00] VITALS: BP 128/82
[2017-12-16] MEDS: HALOPERIDOL 5 MG TABLET PO PRN (16:43)
[2017-12-16] MEDS: LORazepam 2 MG TABLET PO PRN (18:19)
[2017-12-16 20:59] LABS: GLUCOMETER DEV NAME(LOC) BV3S 2; GLUCOSE,POINT OF CARE 155 MG/DL (70-110)
[2017-12-17 08:47] VITALS: BP 100/64
[2017-12-17] MEDS: OMEPRAZOLE 20 MG CAPSULE PO SCH (08:52)
[2017-12-17] MEDS: RisperiDONE 3 MG TABLET PO SCH ×2 (08:52→17:09)
[2017-12-17] MEDS: BuPROPion HCL XL 150 MG ER TABLET PO SCH (08:53)
[2017-12-17] MEDS: DOCUSATE SODIUM 100 MG CAPSULE PO SCH (08:53)
[2017-12-17 12:48] LABS: GLUCOMETER DEV NAME(LOC) BV3S 2; GLUCOSE,POINT OF CARE 91 MG/DL (70-110)
[2017-12-17] MEDS: LORazepam 2 MG TABLET PO PRN (16:58)
[2017-12-17 17:23] LABS: GLUCOMETER DEV NAME(LOC) BV3S 2; GLUCOSE,POINT OF CARE 117 MG/DL (70-110)
[2017-12-17] MEDS: ZOLPIDEM TARTRATE 10 MG TABLET PO PRN (21:13)
[2017-12-18] MEDS: OMEPRAZOLE 20 MG CAPSULE PO SCH (08:13)
[2017-12-18] MEDS: RisperiDONE 3 MG TABLET PO SCH ×2 (08:13→16:33)
[2017-12-18] MEDS: BuPROPion HCL XL 150 MG ER TABLET PO SCH (08:13)
[2017-12-18] MEDS: LORazepam 2 MG TABLET PO PRN ×2 (08:13→16:33)
[2017-12-18] MEDS: DOCUSATE SODIUM 100 MG CAPSULE PO SCH (08:13)
[2017-12-18 09:52] LABS: GLUCOMETER DEV NAME(LOC) BV3S 2; GLUCOSE,POINT OF CARE 88 MG/DL (70-110)
[2017-12-18] MEDS: HALOPERIDOL 5 MG TABLET PO PRN (16:33)
[2017-12-18 18:06] VITALS: BP 141/82
[2017-12-19 06:39] LABS: GLUCOMETER DEV NAME(LOC) BV3S 2; GLUCOSE,POINT OF CARE 92 MG/DL (70-110)
[2017-12-19 08:17] VITALS: BP_SYST 96
[2017-12-19] MEDS: BuPROPion HCL XL 150 MG ER TABLET PO SCH (09:03)
[2017-12-19] MEDS: OMEPRAZOLE 20 MG CAPSULE PO SCH (09:03)
[2017-12-19] MEDS: RisperiDONE 3 MG TABLET PO SCH ×2 (09:03→16:47)
[2017-12-19] MEDS: DOCUSATE SODIUM 100 MG CAPSULE PO SCH (09:03)
[2017-12-19] MEDS: HALOPERIDOL 5 MG TABLET PO PRN ×2 (09:03→16:47)
[2017-12-19] MEDS: LORazepam 2 MG TABLET PO PRN ×2 (09:03→16:47)
[2017-12-19 16:39] VITALS: BP 116/90
[2017-12-19 18:39] LABS: GLUCOMETER DEV NAME(LOC) BV3S 2; GLUCOSE,POINT OF CARE 91 MG/DL (70-110)
[2017-12-19 23:58] LABS: GLUCOMETER DEV NAME(LOC) BV3S 2; GLUCOSE,POINT OF CARE 112 MG/DL (70-110)
[2017-12-20 04:24] VITALS: BP 115/88
[2017-12-20 08:01] VITALS: BP 100/68
[2017-12-20] MEDS: DOCUSATE SODIUM 100 MG CAPSULE PO SCH (08:55)
[2017-12-20] MEDS: OMEPRAZOLE 20 MG CAPSULE PO SCH (08:55)
[2017-12-20] MEDS: RisperiDONE 3 MG TABLET PO SCH (08:55)
[2017-12-20] MEDS: BuPROPion HCL XL 150 MG ER TABLET PO SCH (08:55)
[2017-12-21 15:28] LABS: GLUCOMETER DEV NAME(LOC) BV3S 2; GLUCOSE,POINT OF CARE 118 MG/DL (70-110)
== END 2017-12-20 11:15 | disposition home or self-care (01) | DRG 750 ==
LOC: B3A 21:33 → EDSTATUS 21:49 → B3A 12-15 05:54
PROVIDERS: ADMIT Psychiatry & Neurology Psychiatry; ATTEND Psychiatry & Neurology Psychiatry
DX: F20.0 Paranoid schizophrenia (principal); R45.851 Suicidal ideations; E11.9 Type 2 diabetes mellitus without complications; I10 Essential (primary) hypertension; J44.9 Chronic obstructive pulmonary disease, unspecified; F19.10 Other psychoactive substance abuse, uncomplicated; Z88.8 Allergy status to other drugs, medicaments and biological substances; Z79.899 Other long term (current) drug therapy; Z59.0 Homelessness
CPT/HCPCS: 83036; 84439; 84443; 99285

== ENCOUNTER 2018-08-09 11:13 | Inpatient (IN) | payer MEDICAID, OTHER ==
[~2018-08-09] VITALS: Ht 170.2 cm; Wt 92.5 kg
[2018-08-09] MEDS ORDERED: LORazepam 2 MG/ML VIAL IM ONE (11:45)
[2018-08-09] MEDS ORDERED: HALOPERIDOL LACTATE 5 MG/ML VIAL IM ONE (11:45)
[2018-08-09] MEDS ORDERED: DiphenhydrAMINE HCL 50 MG/ML VIAL IM ONE (11:45)
[2018-08-09 12:07] LABS: AMPHET/METH SCREEN,URINE POSITIVE (NEGATIVE); BARBITURATE SCREEN, URINE NEGATIVE (NEGATIVE); BENZODIAZEPINES SCREEN,URINE NEGATIVE (NEGATIVE); CANNABINOID SCREEN,URINE NEGATIVE (NEGATIVE); COCAINE SCREEN,URINE NEGATIVE (NEGATIVE); METHADONE SCREEN, URINE NEGATIVE (NEGATIVE); OPIATE SCREEN,URINE NEGATIVE (NEGATIVE)
[2018-08-09 12:08] LABS: PHENCYCLIDINE SCREEN,URINE NEGATIVE (NEGATIVE)
[2018-08-09 12:17] LABS: APPEARANCE,URINE CLOUDY (CLEAR); GLUCOSE, URINE (UA) NEGATIVE (NEGATIVE); KETONES,URINE 15 mg/dL (NEGATIVE); LEUKOCYTE ESTERASE ,URINE SMALL (NEGATIVE); NITRATE,URINE NEGATIVE (NEGATIVE); OCCULT BLOOD,URINE NEGATIVE (NEGATIVE); PROTEIN,URINE POS 1+ (NEGATIVE)
[2018-08-09 12:20] LABS: BACTERIA,URINE Moderate /HPF (None Seen); BILIRUBIN,URINE PRELIM. POSITIVE (NEGATIVE); RBC,URINE 0-2 /HPF (0-2); SQUAMOUS EPITHELIAL CELL,UR Many /LPF (None Seen)
[2018-08-09 12:30] LABS: BASOPHILS % (AUTO) 0.3 % (0.0-2.0); EOSINOPHILS % (AUTO) 1.8 % (1.0-6.0); HEMATOCRIT 41.9 % (36-46); HEMOGLOBIN 13.9 g/dL (12.0-16.0); LYMPHOCYTES # (AUTO) 1.7 K/uL (1.0-4.8); LYMPHOCYTES % (AUTO) 23.5 % (22.0-44.0); MEAN CORPUSCULAR HEMOGLOBIN 29.3 pg (26.0-34.0); MEAN CORPUSCULAR HGB CONC 33.2 G/dL (31.0-37.0); MEAN CORPUSCULAR VOLUME 88 fL (80-100); MONOCYTES # (AUTO) 0.6 K/uL (0.1-1.0); MONOCYTES % (AUTO) 7.6 % (2.0-9.0); NEUTROPHILS % (AUTO) 66.8 % (40.0-70.0); PLATELET COUNT (AUTO) 197 K/uL (150-450); RED BLOOD CELL COUNT(AUTO) 4.74 MIL/uL (4.00-5.20); RED CELL DISTRIBUTION WIDTH 14.1 % (11.5-14.5)
[2018-08-09 12:41] LABS: ANION GAP 10 mmol/L (8-16); CALCIUM, TOTAL 9.8 mg/dL (8.8-10.5); CARBON DIOXIDE 27 mmol/L (22-29); CHLORIDE 104 mmol/L (98-107); CREATININE 0.78 mg/dL (0.60-1.30); GLOMERULAR FILTR. RATE CALC > 60 mL/min (>60); GLUCOSE,RANDOM 85 mg/dL (70-110); SODIUM SERUM 141 mmol/L (136-145); UREA NITROGEN, BLOOD 13 mg/dL (7-18)
[2018-08-09 12:45] LABS: ALANINE AMINOTRANSFERASE 25 U/L (12-78); ALBUMIN 4.2 g/dL (3.4-5.0); ALKALINE PHOSPHATASE 60 U/L (46-116); ASPARTATE AMINOTRANSFERASE 22 U/L (15-37); BILIRUBIN,TOTAL 0.6 mg/dL (0.1-1.0); TOTAL PROTEIN, SERUM 7.9 g/dL (6.4-8.2)
[2018-08-09] MEDS ORDERED: ZOLPIDEM TARTRATE 10 MG TABLET PO PRN (15:30)
[2018-08-09 18:05] VITALS: BP 111/73
[2018-08-10 03:47] VITALS: BP 126/64
[2018-08-10] MEDS: LORazepam 2 MG TABLET PO PRN ×2 (04:09→17:00)
[2018-08-10] MEDS: HALOPERIDOL 5 MG TABLET PO PRN ×2 (04:09→17:00)
[2018-08-10 08:23] LABS: CHOL/HDL RATIO 2.9 (3.9-5.7); FREE T4 (FREE THYROXINE) 1.18 ng/dL (0.76-1.46); THYROID STIMULATING HORMONE 0.62 uIU/mL (0.36-3.74)
[2018-08-10 09:35] VITALS: BP 69/52
[2018-08-10 16:15] VITALS: BP 133/84
[2018-08-11 01:02] VITALS: BP 124/80
[2018-08-11 08:32] VITALS: BP 119/94
[2018-08-11] MEDS ORDERED: RisperiDONE MICROSPHERES 50 MG/2 ML SYRINGE IM SCH (09:00)
[2018-08-11] MEDS: NITROFURANTOIN/NITROFURAN MAC 100 MG CAPSULE [MACROBID] PO SCH ×2 (13:04→17:24)
[2018-08-11 16:00] VITALS: BP 129/77
[2018-08-12 01:26] VITALS: BP 142/77
[2018-08-12 08:39] VITALS: BP 126/62
[2018-08-12] MEDS: NITROFURANTOIN/NITROFURAN MAC 100 MG CAPSULE [MACROBID] PO SCH ×2 (09:15→17:08)
[2018-08-12 16:21] VITALS: BP 110/52
[2018-08-12] MEDS: LORazepam 2 MG TABLET PO PRN (16:30)
[2018-08-12] MEDS: RisperiDONE 2 MG TABLET PO SCH (17:08)
[2018-08-13 00:04] VITALS: BP 141/82
[2018-08-13 08:27] VITALS: BP 124/68
[2018-08-13] MEDS: LORazepam 2 MG TABLET PO PRN (08:38)
[2018-08-13] MEDS: NITROFURANTOIN/NITROFURAN MAC 100 MG CAPSULE [MACROBID] PO SCH ×2 (08:38→16:03)
[2018-08-13] MEDS: RisperiDONE 2 MG TABLET PO SCH ×2 (08:38→16:02)
[2018-08-13] MEDS ORDERED: RISP2 PO (15:18)
[2018-08-13] MEDS ORDERED: RISPC50 IM (15:18)
[2018-08-13] MEDS ORDERED: MACR100 PO (15:20)
== END 2018-08-13 18:40 | disposition home or self-care (01) | DRG 750 ==
LOC: EMS 11:13 → B3A 16:43
PROVIDERS: ADMIT Psychiatry & Neurology Psychiatry; ATTEND Psychiatry & Neurology Psychiatry
DX: F20.0 Paranoid schizophrenia (principal); G93.40 Encephalopathy, unspecified; E11.9 Type 2 diabetes mellitus without complications; Z91.19 Patient's noncompliance with other medical treatment and regimen; F12.90 Cannabis use, unspecified, uncomplicated; F15.10 Other stimulant abuse, uncomplicated; F31.9 Bipolar disorder, unspecified; I10 Essential (primary) hypertension; I34.1 Nonrheumatic mitral (valve) prolapse; J44.9 Chronic obstructive pulmonary disease, unspecified; Z82.49 Family history of ischemic heart disease and other diseases of the circulatory system; Z83.3 Family history of diabetes mellitus; Z88.8 Allergy status to other drugs, medicaments and biological substances
CPT/HCPCS: 84439; 84443; 87086; 96372; G0480; J1200; J1630; J2060; J2794

== ENCOUNTER 2018-11-03 12:45 | Inpatient (IN) | payer MEDICAID, OTHER ==
[~2018-11-03] VITALS: Ht 170.2 cm; Wt 97.7 kg
[~2018-11-03 12:45] MED LIST changes: +BENZ1TAB10 PO; -BUPR-93 PO; +RISP2 PO; -RISP3 PO; +RISPC50 IM
[2018-11-03 13:19] LABS: BASOPHILS % (AUTO) 0.7 % (0.0-2.0); EOSINOPHILS % (AUTO) 1.6 % (1.0-6.0); HEMOGLOBIN 13.8 g/dL (12.0-16.0); LYMPHOCYTES # (AUTO) 1.5 K/uL (1.0-4.8); LYMPHOCYTES % (AUTO) 21.1 % (22.0-44.0); MEAN CORPUSCULAR HEMOGLOBIN 30.1 pg (26.0-34.0); MEAN CORPUSCULAR HGB CONC 33.6 G/dL (31.0-37.0); MEAN CORPUSCULAR VOLUME 90 fL (80-100); MONOCYTES # (AUTO) 0.6 K/uL (0.1-1.0); NEUTROPHILS # (AUTO) 4.9 K/uL (1.8-7.7); NEUTROPHILS % (AUTO) 67.6 % (40.0-70.0); PLATELET COUNT (AUTO) 215 K/uL (150-450); RED BLOOD CELL COUNT(AUTO) 4.57 MIL/uL (4.00-5.20); RED CELL DISTRIBUTION WIDTH 14.4 % (11.5-14.5)
[2018-11-03 13:27] LABS: ANION GAP 13 mmol/L (8-16); CALCIUM, TOTAL 9.1 mg/dL (8.8-10.5); CARBON DIOXIDE 23 mmol/L (22-29); CHLORIDE 104 mmol/L (98-107); CREATININE 0.65 mg/dL (0.60-1.30); GLOMERULAR FILTR. RATE CALC > 60 mL/min (>60); GLUCOSE,RANDOM 93 mg/dL (70-110); POTASSIUM 3.3 mmol/L (3.5-5.1); SODIUM SERUM 140 mmol/L (136-145); UREA NITROGEN, BLOOD 8 mg/dL (7-18)
[2018-11-03] MEDS ORDERED: LORazepam 2 MG TABLET PO ONE (13:30)
[2018-11-03] MEDS ORDERED: ZOLPIDEM TARTRATE 10 MG TABLET PO PRN (13:30)
[2018-11-03] MEDS ORDERED: HALOPERIDOL 5 MG TABLET PO ONE (13:30)
[2018-11-03] MEDS ORDERED: HALOPERIDOL 5 MG TABLET PO PRN (13:30)
[2018-11-03 13:33] LABS: ALANINE AMINOTRANSFERASE 29 U/L (12-78); ALBUMIN 3.8 g/dL (3.4-5.0); ALKALINE PHOSPHATASE 68 U/L (46-116); ASPARTATE AMINOTRANSFERASE 40 U/L (15-37); BILIRUBIN,TOTAL 0.8 mg/dL (0.1-1.0); TOTAL PROTEIN, SERUM 7.2 g/dL (6.4-8.2)
[2018-11-03] MEDS: LORazepam 2 MG TABLET PO PRN (14:35)
[2018-11-03 14:51] LABS: AMPHET/METH SCREEN,URINE POSITIVE (NEGATIVE); BARBITURATE SCREEN, URINE NEGATIVE (NEGATIVE); BENZODIAZEPINES SCREEN,URINE NEGATIVE (NEGATIVE); CANNABINOID SCREEN,URINE NEGATIVE (NEGATIVE); COCAINE SCREEN,URINE NEGATIVE (NEGATIVE); METHADONE SCREEN, URINE NEGATIVE (NEGATIVE); OPIATE SCREEN,URINE NEGATIVE (NEGATIVE)
[2018-11-03 14:53] LABS: PHENCYCLIDINE SCREEN,URINE NEGATIVE (NEGATIVE)
[2018-11-03] MEDS ORDERED: POTASSIUM CHLORIDE 20 MEQ ER TABLET PO ONE (15:15)
[2018-11-03 18:41] VITALS: BP 136/69
[2018-11-04 06:42] VITALS: BP 124/72
[2018-11-04 08:16] LABS: HEMOGLOBIN A1C 5.6 % (4.5-6.2)
[2018-11-04 08:21] VITALS: BP 135/91
[2018-11-04] MEDS: LORazepam 2 MG TABLET PO PRN (08:43)
[2018-11-04] MEDS: BENZTROPINE MESYLATE 1 MG TABLET PO SCH ×2 (08:43→16:16)
[2018-11-04] MEDS: RisperiDONE 2 MG TABLET PO SCH ×2 (08:43→16:16)
[2018-11-04 08:50] LABS: ANION GAP 10 mmol/L (8-16); CALCIUM, TOTAL 8.8 mg/dL (8.8-10.5); CARBON DIOXIDE 25 mmol/L (22-29); CHLORIDE 105 mmol/L (98-107); CHOL/HDL RATIO 2.5 (3.9-5.7); CHOLESTEROL 147 mg/dL (131-200); CREATININE 0.62 mg/dL (0.60-1.30); FREE T4 (FREE THYROXINE) 1.15 ng/dL (0.76-1.46); GLOMERULAR FILTR. RATE CALC > 60 mL/min (>60); GLUCOSE,RANDOM 87 mg/dL (70-110); HCG,QUANTITATIVE < 1 mIU/mL (0-6); HDL CHOLESTEROL 60 mg/dL (40-60); LDL CHOL (CALC.) 76 mg/dL (0-130); POTASSIUM 3.3 mmol/L (3.5-5.1); SODIUM SERUM 140 mmol/L (136-145); THYROID STIMULATING HORMONE 0.44 uIU/mL (0.36-3.74); TRIGLYCERIDES 57 mg/dL (15-150); UREA NITROGEN, BLOOD 9 mg/dL (7-18)
[2018-11-04 16:52] VITALS: BP 103/66
[2018-11-04] MEDS ORDERED: POTASSIUM CHLORIDE 20 MEQ ER TABLET PO ONE (17:00)
[2018-11-05 04:58] LABS: HIV 1-2 SCREEN 4TH GEN W/RFLX Non Reactive (Non Reactive)
[2018-11-05 07:15] VITALS: BP 130/78
[2018-11-05 08:17] LABS: ANION GAP 9 mmol/L (8-16); CALCIUM, TOTAL 8.9 mg/dL (8.8-10.5); CARBON DIOXIDE 26 mmol/L (22-29); CHLORIDE 106 mmol/L (98-107); GLOMERULAR FILTR. RATE CALC > 60 mL/min (>60); GLUCOSE,RANDOM 85 mg/dL (70-110); POTASSIUM 3.9 mmol/L (3.5-5.1); SODIUM SERUM 141 mmol/L (136-145); UREA NITROGEN, BLOOD 13 mg/dL (7-18)
[2018-11-05 08:18] VITALS: BP 135/51
[2018-11-05] MEDS: BENZTROPINE MESYLATE 1 MG TABLET PO SCH ×2 (08:50→16:33)
[2018-11-05] MEDS: RisperiDONE 2 MG TABLET PO SCH ×2 (08:50→17:19)
[2018-11-05] MEDS: LORazepam 2 MG TABLET PO PRN ×2 (08:50→16:33)
[2018-11-05 16:06] VITALS: BP 108/59
[2018-11-06 05:00] VITALS: BP 100/60
[2018-11-06 08:40] VITALS: BP 114/62
[2018-11-06] MEDS: RisperiDONE 2 MG TABLET PO SCH ×2 (09:30→17:10)
[2018-11-06] MEDS: BENZTROPINE MESYLATE 1 MG TABLET PO SCH ×2 (09:30→17:10)
[2018-11-06] MEDS: LORazepam 2 MG TABLET PO PRN ×2 (09:30→16:29)
[2018-11-06 16:08] VITALS: BP 117/68
[2018-11-07 06:08] VITALS: BP 116/71
[2018-11-07 08:15] VITALS: BP 110/16
[2018-11-07] MEDS: BENZTROPINE MESYLATE 1 MG TABLET PO SCH (08:19)
[2018-11-07] MEDS: LORazepam 2 MG TABLET PO PRN (08:19)
[2018-11-07] MEDS: RisperiDONE 2 MG TABLET PO SCH (08:19)
== END 2018-11-07 15:25 | disposition home or self-care (01) | DRG 750 ==
LOC: EMS 12:46 → B3A 16:50
PROVIDERS: ADMIT Psychiatry & Neurology Psychiatry; ATTEND Psychiatry & Neurology Psychiatry
DX: F20.0 Paranoid schizophrenia (principal); R45.851 Suicidal ideations; E87.6 Hypokalemia; F12.90 Cannabis use, unspecified, uncomplicated; F15.90 Other stimulant use, unspecified, uncomplicated; Z83.3 Family history of diabetes mellitus; Z82.49 Family history of ischemic heart disease and other diseases of the circulatory system; Z88.8 Allergy status to other drugs, medicaments and biological substances
CPT/HCPCS: 80074; 83036; 83735; 84439; 84443; 87389; G0480

== ENCOUNTER 2018-11-10 11:04 | Inpatient (IN) | payer MEDICAID, OTHER ==
[~2018-11-10] VITALS: Ht 170.2 cm; Wt 97.4 kg
[~2018-11-10 11:04] MED LIST changes: -RISPC50 IM
[2018-11-10] MEDS ORDERED: IBUPROFEN 600 MG TABLET PO ONE (11:45)
[2018-11-10] MEDS ORDERED: HALOPERIDOL 5 MG TABLET PO PRN (12:30)
[2018-11-10] MEDS ORDERED: ZOLPIDEM TARTRATE 10 MG TABLET PO PRN (12:30)
[2018-11-10 12:36] LABS: BASOPHILS % (AUTO) 0.3 % (0.0-2.0); EOSINOPHILS % (AUTO) 2.3 % (1.0-6.0); HEMATOCRIT 43.1 % (36-46); HEMOGLOBIN 14.6 g/dL (12.0-16.0); LYMPHOCYTES # (AUTO) 1.9 K/uL (1.0-4.8); LYMPHOCYTES % (AUTO) 22.1 % (22.0-44.0); MEAN CORPUSCULAR HEMOGLOBIN 30.2 pg (26.0-34.0); MEAN CORPUSCULAR HGB CONC 33.9 G/dL (31.0-37.0); MEAN CORPUSCULAR VOLUME 89 fL (80-100); MONOCYTES # (AUTO) 0.8 K/uL (0.1-1.0); MONOCYTES % (AUTO) 9.5 % (2.0-9.0); NEUTROPHILS # (AUTO) 5.7 K/uL (1.8-7.7); NEUTROPHILS % (AUTO) 65.8 % (40.0-70.0); PLATELET COUNT (AUTO) 195 K/uL (150-450); RED BLOOD CELL COUNT(AUTO) 4.83 MIL/uL (4.00-5.20); RED CELL DISTRIBUTION WIDTH 14.2 % (11.5-14.5)
[2018-11-10 12:48] LABS: AMPHET/METH SCREEN,URINE POSITIVE (NEGATIVE); BARBITURATE SCREEN, URINE NEGATIVE (NEGATIVE); BENZODIAZEPINES SCREEN,URINE NEGATIVE (NEGATIVE); CANNABINOID SCREEN,URINE NEGATIVE (NEGATIVE); COCAINE SCREEN,URINE NEGATIVE (NEGATIVE); METHADONE SCREEN, URINE NEGATIVE (NEGATIVE); OPIATE SCREEN,URINE NEGATIVE (NEGATIVE)
[2018-11-10 12:49] LABS: ANION GAP 11 mmol/L (8-16); CALCIUM, TOTAL 9.3 mg/dL (8.8-10.5); CARBON DIOXIDE 25 mmol/L (22-29); CHLORIDE 99 mmol/L (98-107); CREATININE 0.79 mg/dL (0.60-1.30); GLOMERULAR FILTR. RATE CALC > 60 mL/min (>60); GLUCOSE,RANDOM 158 mg/dL (70-110); POTASSIUM 3.5 mmol/L (3.5-5.1); SODIUM SERUM 135 mmol/L (136-145); UREA NITROGEN, BLOOD 16 mg/dL (7-18)
[2018-11-10 12:51] LABS: PHENCYCLIDINE SCREEN,URINE NEGATIVE (NEGATIVE)
[2018-11-10 12:54] LABS: ALANINE AMINOTRANSFERASE 21 U/L (12-78); ALBUMIN 4.1 g/dL (3.4-5.0); ALKALINE PHOSPHATASE 58 U/L (46-116); ASPARTATE AMINOTRANSFERASE 22 U/L (15-37); BILIRUBIN,TOTAL 0.6 mg/dL (0.1-1.0); TOTAL PROTEIN, SERUM 7.6 g/dL (6.4-8.2)
[2018-11-10] MEDS: LORazepam 2 MG TABLET PO PRN (16:02)
[2018-11-10 16:04] VITALS: BP 125/76
[2018-11-10] MEDS ORDERED: ACETAMINOPHEN 325 MG TABLET PO PRN (16:45)
[2018-11-10] MEDS ORDERED: IBUPROFEN 600 MG TABLET PO PRN (16:45)
[2018-11-11 06:21] VITALS: BP 117/71
[2018-11-11 08:09] VITALS: BP 109/69
[2018-11-11 08:34] LABS: CHOL/HDL RATIO 2.8 (3.9-5.7)
[2018-11-11] MEDS: LORazepam 2 MG TABLET PO PRN ×2 (12:44→17:29)
[2018-11-11 16:00] VITALS: BP 105/62
[2018-11-11] MEDS ORDERED: BISACODYL 5 MG EC TABLET PO PRN (17:00)
[2018-11-11] MEDS: DOCUSATE SODIUM 100 MG CAPSULE PO SCH (17:29)
[2018-11-11] MEDS: RisperiDONE 2 MG TABLET PO SCH (20:10)
[2018-11-11] MEDS: BENZTROPINE MESYLATE 1 MG TABLET PO SCH (20:10)
[2018-11-12 05:30] VITALS: BP 112/68
[2018-11-12] MEDS: DOCUSATE SODIUM 100 MG CAPSULE PO SCH ×2 (08:19→16:04)
[2018-11-12] MEDS: BENZTROPINE MESYLATE 1 MG TABLET PO SCH ×2 (08:19→20:16)
[2018-11-12] MEDS: LORazepam 2 MG TABLET PO PRN ×2 (08:19→20:32)
[2018-11-12] MEDS: RisperiDONE 2 MG TABLET PO SCH ×2 (08:19→20:16)
[2018-11-12 08:35] VITALS: BP 120/60
[2018-11-12 16:14] VITALS: BP 106/57
[2018-11-12 20:00] VITALS: BP 121/88
[2018-11-13 06:13] VITALS: BP 124/77
[2018-11-13] MEDS: DOCUSATE SODIUM 100 MG CAPSULE PO SCH ×2 (08:04→15:58)
[2018-11-13] MEDS: RisperiDONE 2 MG TABLET PO SCH ×2 (08:04→20:07)
[2018-11-13] MEDS: BENZTROPINE MESYLATE 1 MG TABLET PO SCH ×2 (08:04→20:07)
[2018-11-13 08:29] VITALS: BP 127/72
[2018-11-13 16:04] VITALS: BP 117/84
[2018-11-13] MEDS: LORazepam 2 MG TABLET PO PRN (20:07)
[2018-11-14 04:55] VITALS: BP 125/77
[2018-11-14] MEDS: DOCUSATE SODIUM 100 MG CAPSULE PO SCH (08:12)
[2018-11-14] MEDS: RisperiDONE 2 MG TABLET PO SCH (08:12)
[2018-11-14] MEDS: BENZTROPINE MESYLATE 1 MG TABLET PO SCH (08:12)
[2018-11-14 08:53] VITALS: BP 124/67
== END 2018-11-14 14:05 | disposition home or self-care (01) | DRG 750 ==
LOC: EMS 11:06 → B3A 13:51
PROVIDERS: ADMIT Psychiatry & Neurology Psychiatry; ATTEND Psychiatry & Neurology Psychiatry
DX: F20.0 Paranoid schizophrenia (principal); E87.1 Hypo-osmolality and hyponatremia; F12.10 Cannabis abuse, uncomplicated; F15.10 Other stimulant abuse, uncomplicated; F31.9 Bipolar disorder, unspecified; M54.2 Cervicalgia; M54.9 Dorsalgia, unspecified; K59.00 Constipation, unspecified; Z59.0 Homelessness; Z82.49 Family history of ischemic heart disease and other diseases of the circulatory system; Z83.3 Family history of diabetes mellitus; Z88.8 Allergy status to other drugs, medicaments and biological substances; Z79.899 Other long term (current) drug therapy
CPT/HCPCS: 87081; G0480

== ENCOUNTER 2018-11-16 10:04 | Inpatient (IN) | payer MEDICAID, OTHER ==
[~2018-11-16] VITALS: Ht 170.2 cm; Wt 97.0 kg
[2018-11-16 10:58] LABS: BASOPHILS % (AUTO) 0.7 % (0.0-2.0); EOSINOPHILS % (AUTO) 2.9 % (1.0-6.0); HEMATOCRIT 41.6 % (36-46); LYMPHOCYTES # (AUTO) 1.8 K/uL (1.0-4.8); LYMPHOCYTES % (AUTO) 26.6 % (22.0-44.0); MEAN CORPUSCULAR HGB CONC 33.6 G/dL (31.0-37.0); MEAN CORPUSCULAR VOLUME 89 fL (80-100); MONOCYTES # (AUTO) 0.5 K/uL (0.1-1.0); MONOCYTES % (AUTO) 8.2 % (2.0-9.0); NEUTROPHILS # (AUTO) 4.1 K/uL (1.8-7.7); NEUTROPHILS % (AUTO) 61.6 % (40.0-70.0); PLATELET COUNT (AUTO) 216 K/uL (150-450); RED BLOOD CELL COUNT(AUTO) 4.67 MIL/uL (4.00-5.20); RED CELL DISTRIBUTION WIDTH 14.4 % (11.5-14.5)
[2018-11-16 11:09] LABS: ANION GAP 9 mmol/L (8-16); CALCIUM, TOTAL 9.2 mg/dL (8.8-10.5); CARBON DIOXIDE 25 mmol/L (22-29); CHLORIDE 103 mmol/L (98-107); CREATININE 0.59 mg/dL (0.60-1.30); GLOMERULAR FILTR. RATE CALC > 60 mL/min (>60); GLUCOSE,RANDOM 107 mg/dL (70-110); POTASSIUM 3.4 mmol/L (3.5-5.1); SODIUM SERUM 137 mmol/L (136-145); UREA NITROGEN, BLOOD 10 mg/dL (7-18)
[2018-11-16 11:16] LABS: ALANINE AMINOTRANSFERASE 11 U/L (12-78); ALBUMIN 3.9 g/dL (3.4-5.0); ALKALINE PHOSPHATASE 59 U/L (46-116); ASPARTATE AMINOTRANSFERASE 19 U/L (15-37); BILIRUBIN,TOTAL 0.5 mg/dL (0.1-1.0); TOTAL PROTEIN, SERUM 6.9 g/dL (6.4-8.2)
[2018-11-16] MEDS ORDERED: BENZTROPINE MESYLATE 1 MG TABLET PO ONE (11:45)
[2018-11-16] MEDS ORDERED: RisperiDONE 1 MG TABLET PO ONE (11:45)
[2018-11-16] MEDS ORDERED: HALOPERIDOL 5 MG TABLET PO PRN (13:15)
[2018-11-16] MEDS ORDERED: ZOLPIDEM TARTRATE 10 MG TABLET PO PRN (13:15)
[2018-11-16 16:00] VITALS: BP 116/72
[2018-11-16] MEDS: RisperiDONE 2 MG TABLET PO SCH (20:46)
[2018-11-16] MEDS: BENZTROPINE MESYLATE 1 MG TABLET PO SCH (20:46)
[2018-11-17 06:36] VITALS: BP 103/62
[2018-11-17] MEDS ORDERED: CloNIDine HCL 0.1 MG TABLET PO PRN (07:15)
[2018-11-17] MEDS ORDERED: MAGNESIUM HYDROXIDE SUSPENSION 30 ML UDCUP PO PRN (07:15)
[2018-11-17] MEDS ORDERED: MAG HYDROX/AL HYDROX/SIMETH ES 30 ML SUSPENSION UDCUP PO PRN (07:15)
[2018-11-17] MEDS ORDERED: LOPERAMIDE HCL 2 MG CAPSULE PO PRN (07:15)
[2018-11-17] MEDS ORDERED: OMEPRAZOLE 20 MG CAPSULE PO PRN (07:15)
[2018-11-17] MEDS ORDERED: ACETAMINOPHEN 325 MG TABLET PO PRN (07:15)
[2018-11-17] MEDS ORDERED: BACITRACIN 28.4 GM OINTMENT TP PRN (07:15)
[2018-11-17] MEDS ORDERED: BENZOCAINE/MENTHOL LOZENGE MM PRN (07:15)
[2018-11-17] MEDS ORDERED: POTASSIUM CHLORIDE 20 MEQ ER TABLET PO ONE (07:15)
[2018-11-17] MEDS ORDERED: ONDANSETRON HCL 4 MG TABLET PO PRN (07:15)
[2018-11-17] MEDS ORDERED: PETROLATUM,WHITE 28 GM JELLY TP PRN (07:15)
[2018-11-17] MEDS ORDERED: IBUPROFEN 600 MG TABLET PO PRN (07:15)
[2018-11-17] MEDS ORDERED: DOCUSATE SODIUM 100 MG CAPSULE PO PRN (07:15)
[2018-11-17] MEDS: RisperiDONE 2 MG TABLET PO SCH ×2 (08:23→20:35)
[2018-11-17] MEDS: BENZTROPINE MESYLATE 1 MG TABLET PO SCH ×2 (08:23→20:35)
[2018-11-17 08:35] VITALS: BP 95/50
[2018-11-17 08:45] VITALS: BP 111/63
[2018-11-17] MEDS: LORazepam 2 MG TABLET PO PRN (16:24)
[2018-11-17 16:38] VITALS: BP 105/62
[2018-11-18 06:03] VITALS: BP 110/60
[2018-11-18] MEDS: LORazepam 2 MG TABLET PO PRN (08:47)
[2018-11-18] MEDS: BENZTROPINE MESYLATE 1 MG TABLET PO SCH ×2 (08:47→20:19)
[2018-11-18] MEDS: RisperiDONE 2 MG TABLET PO SCH ×2 (08:47→20:20)
[2018-11-18 08:54] VITALS: BP 128/66
[2018-11-18 16:16] VITALS: BP 119/77
[2018-11-19 05:56] VITALS: BP 112/65
[2018-11-19 08:11] VITALS: BP 117/65
[2018-11-19] MEDS: RisperiDONE 2 MG TABLET PO SCH ×2 (08:43→20:20)
[2018-11-19] MEDS: LORazepam 2 MG TABLET PO PRN (08:43)
[2018-11-19] MEDS: BENZTROPINE MESYLATE 1 MG TABLET PO SCH ×2 (08:43→20:20)
[2018-11-19 16:12] VITALS: BP 122/92
[2018-11-20 04:38] VITALS: BP 123/78
[2018-11-20 08:22] VITALS: BP 106/58
[2018-11-20] MEDS: RisperiDONE 2 MG TABLET PO SCH (08:25)
[2018-11-20] MEDS: BENZTROPINE MESYLATE 1 MG TABLET PO SCH (08:25)
[2018-11-20] MEDS: LORazepam 2 MG TABLET PO PRN (08:30)
[2018-11-20 09:30] VITALS: BP 112/74
[2018-11-20] MEDS ORDERED: BENZ1TAB10 PO (11:23)
[2018-11-20] MEDS ORDERED: RISP2 PO (11:23)
== END 2018-11-20 13:05 | disposition home or self-care (01) | DRG 750 ==
LOC: EMS 10:05 → B3A 13:23
PROVIDERS: ADMIT Psychiatry & Neurology Psychiatry; ATTEND Psychiatry & Neurology Psychiatry
DX: F20.0 Paranoid schizophrenia (principal); Z59.0 Homelessness; E55.9 Vitamin D deficiency, unspecified; E66.9 Obesity, unspecified; K21.9 Gastro-esophageal reflux disease without esophagitis; F41.9 Anxiety disorder, unspecified; F12.90 Cannabis use, unspecified, uncomplicated; F11.90 Opioid use, unspecified, uncomplicated; F15.10 Other stimulant abuse, uncomplicated; E87.6 Hypokalemia; G47.00 Insomnia, unspecified; F31.9 Bipolar disorder, unspecified; Z91.14 Patient's other noncompliance with medication regimen; Z88.8 Allergy status to other drugs, medicaments and biological substances; Z71.51 Drug abuse counseling and surveillance of drug abuser; Z68.33 Body mass index [BMI] 33.0-33.9, adult
CPT/HCPCS: 84132; 87081; G0480

== ENCOUNTER 2018-12-31 12:11 | Inpatient (IN) | payer MEDICAID ==
[~2018-12-31] VITALS: Ht 154.9 cm; Wt 95.7 kg
[2018-12-31] MEDS ORDERED: HALOPERIDOL 5 MG TABLET PO PRN (13:45)
[2018-12-31] MEDS ORDERED: ZOLPIDEM TARTRATE 10 MG TABLET PO PRN (13:45)
[2018-12-31 13:52] VITALS: BP 156/94
[2018-12-31] MEDS: RisperiDONE 3 MG TABLET PO SCH (20:24)
[2018-12-31] MEDS: BENZTROPINE MESYLATE 1 MG TABLET PO SCH (20:24)
[2019-01-01 07:01] VITALS: BP 117/75
[2019-01-01] MEDS: RisperiDONE 3 MG TABLET PO SCH ×2 (08:16→20:16)
[2019-01-01] MEDS: LORazepam 2 MG TABLET PO PRN (08:16)
[2019-01-01] MEDS: BENZTROPINE MESYLATE 1 MG TABLET PO SCH ×2 (08:16→20:16)
[2019-01-01 08:27] VITALS: BP 122/74
[2019-01-01 16:21] VITALS: BP 106/74
[2019-01-01] MEDS ORDERED: IBUPROFEN 600 MG TABLET PO PRN (19:00)
[2019-01-01] MEDS ORDERED: ACETAMINOPHEN 325 MG TABLET PO PRN (19:00)
[2019-01-01] MEDS ORDERED: PETROLATUM,WHITE 28 GM JELLY TP PRN (19:00)
[2019-01-01] MEDS ORDERED: ONDANSETRON HCL 4 MG TABLET PO PRN (19:00)
[2019-01-01] MEDS ORDERED: LOPERAMIDE HCL 2 MG CAPSULE PO PRN (19:00)
[2019-01-01] MEDS ORDERED: BACITRACIN 28.4 GM OINTMENT TP PRN (19:00)
[2019-01-01] MEDS ORDERED: BENZOCAINE/MENTHOL LOZENGE MM PRN (19:00)
[2019-01-01] MEDS ORDERED: CloNIDine HCL 0.1 MG TABLET PO PRN (19:00)
[2019-01-01] MEDS ORDERED: OMEPRAZOLE 20 MG CAPSULE PO PRN (19:00)
[2019-01-01] MEDS ORDERED: DOCUSATE SODIUM 100 MG CAPSULE PO PRN (19:00)
[2019-01-01] MEDS ORDERED: MAGNESIUM HYDROXIDE SUSPENSION 30 ML UDCUP PO PRN (19:00)
[2019-01-01] MEDS ORDERED: MAG HYDROX/AL HYDROX/SIMETH ES 30 ML SUSPENSION UDCUP PO PRN (19:00)
[2019-01-02 07:24] VITALS: BP 110/68
[2019-01-02 08:13] LABS: BASOPHILS % (AUTO) 0.8 % (0.0-2.0); EOSINOPHILS % (AUTO) 2.1 % (1.0-6.0); HEMATOCRIT 39.6 % (36-46); HEMOGLOBIN 13.6 g/dL (12.0-16.0); LYMPHOCYTES # (AUTO) 1.6 K/uL (1.0-4.8); LYMPHOCYTES % (AUTO) 34.4 % (22.0-44.0); MEAN CORPUSCULAR HEMOGLOBIN 30.1 pg (26.0-34.0); MEAN CORPUSCULAR HGB CONC 34.5 G/dL (31.0-37.0); MEAN CORPUSCULAR VOLUME 87 fL (80-100); MONOCYTES # (AUTO) 0.3 K/uL (0.1-1.0); MONOCYTES % (AUTO) 7.3 % (2.0-9.0); NEUTROPHILS # (AUTO) 2.5 K/uL (1.8-7.7); NEUTROPHILS % (AUTO) 55.4 % (40.0-70.0); PLATELET COUNT (AUTO) 179 K/uL (150-450); RED BLOOD CELL COUNT(AUTO) 4.53 MIL/uL (4.00-5.20); RED CELL DISTRIBUTION WIDTH 14.6 % (11.5-14.5)
[2019-01-02 08:25] VITALS: BP 122/72
[2019-01-02 08:39] LABS: ALANINE AMINOTRANSFERASE 12 U/L (12-78); ALBUMIN 3.5 g/dL (3.4-5.0); ALKALINE PHOSPHATASE 50 U/L (46-116); ANION GAP 8 mmol/L (8-16); ASPARTATE AMINOTRANSFERASE 16 U/L (15-37); BILIRUBIN,TOTAL 0.4 mg/dL (0.1-1.0); CARBON DIOXIDE 27 mmol/L (22-29); CHLORIDE 104 mmol/L (98-107); CHOL/HDL RATIO 2.7 (3.9-5.7); CHOLESTEROL 149 mg/dL (131-200); CREATININE 0.63 mg/dL (0.60-1.30); FREE T4 (FREE THYROXINE) 1.08 ng/dL (0.76-1.46); GLOMERULAR FILTR. RATE CALC > 60 mL/min (>60); GLUCOSE,RANDOM 86 mg/dL (70-110); HCG,QUANTITATIVE < 1 mIU/mL (0-6); HDL CHOLESTEROL 55 mg/dL (40-60); LDL CHOL (CALC.) 83 mg/dL (0-130); POTASSIUM 3.6 mmol/L (3.5-5.1); SODIUM SERUM 139 mmol/L (136-145); THYROID STIMULATING HORMONE 0.88 uIU/mL (0.36-3.74); TOTAL PROTEIN, SERUM 6.6 g/dL (6.4-8.2); TRIGLYCERIDES 57 mg/dL (15-150); UREA NITROGEN, BLOOD 16 mg/dL (7-18)
[2019-01-02 08:44] LABS: HEMOGLOBIN A1C 5.2 % (4.5-6.2)
[2019-01-02] MEDS: BENZTROPINE MESYLATE 1 MG TABLET PO SCH ×2 (08:51→20:37)
[2019-01-02] MEDS: LORazepam 2 MG TABLET PO PRN (08:51)
[2019-01-02] MEDS: RisperiDONE 3 MG TABLET PO SCH ×2 (08:51→20:37)
[2019-01-02 16:26] VITALS: BP 124/78
[2019-01-03 06:51] VITALS: BP 133/82
[2019-01-03] MEDS: RisperiDONE 3 MG TABLET PO SCH ×2 (08:02→20:05)
[2019-01-03] MEDS: BENZTROPINE MESYLATE 1 MG TABLET PO SCH ×2 (08:02→20:05)
[2019-01-03 08:27] VITALS: BP 116/72
[2019-01-03 16:07] VITALS: BP 111/64
[2019-01-03] MEDS: LORazepam 2 MG TABLET PO PRN (17:13)
[2019-01-03] MEDS ORDERED: RISP3 PO (20:35)
[2019-01-04 06:34] VITALS: BP 126/78
[2019-01-04 08:06] VITALS: BP 114/77
[2019-01-04] MEDS: BENZTROPINE MESYLATE 1 MG TABLET PO SCH (08:39)
[2019-01-04] MEDS: RisperiDONE 3 MG TABLET PO SCH (08:39)
== END 2019-01-04 13:42 | disposition home or self-care (01) | DRG 750 ==
LOC: B3A 13:40
PROVIDERS: ADMIT Psychiatry & Neurology Psychiatry; ATTEND Psychiatry & Neurology Psychiatry
DX: F25.9 Schizoaffective disorder, unspecified (principal); Z91.14 Patient's other noncompliance with medication regimen; E55.9 Vitamin D deficiency, unspecified; E66.9 Obesity, unspecified; F32.9 Major depressive disorder, single episode, unspecified; F41.9 Anxiety disorder, unspecified; G47.00 Insomnia, unspecified; K21.9 Gastro-esophageal reflux disease without esophagitis; R51 Headache; Z68.39 Body mass index [BMI] 39.0-39.9, adult; Z88.8 Allergy status to other drugs, medicaments and biological substances; Z79.899 Other long term (current) drug therapy
CPT/HCPCS: 83036; 84439; 84443

== ENCOUNTER 2019-01-12 16:35 | Inpatient (IN) | payer MEDICAID ==
[~2019-01-12 16:35] MED LIST changes: -RISP2 PO; +RISP3 PO
[2019-01-12] MEDS ORDERED: HALOPERIDOL 5 MG TABLET PO PRN (17:15)
[2019-01-12] MEDS ORDERED: ZOLPIDEM TARTRATE 10 MG TABLET PO PRN (17:15)
[2019-01-12 17:36] VITALS: BP 148/93
[2019-01-12] MEDS ORDERED: INFLUENZA VIRUS VACCINE QVS 2019-20 (3YR+)/PF 60 MCG/0.5 ML SYRINGE IM ONE (22:15)
[2019-01-12] MEDS: LORazepam 2 MG TABLET PO PRN (22:34)
[2019-01-13 08:14] LABS: BASOPHILS % (AUTO) 0.4 % (0.0-2.0); EOSINOPHILS % (AUTO) 3.1 % (1.0-6.0); HEMATOCRIT 38.5 % (36-46); HEMOGLOBIN 13.2 g/dL (12.0-16.0); LYMPHOCYTES # (AUTO) 1.7 K/uL (1.0-4.8); LYMPHOCYTES % (AUTO) 40.6 % (22.0-44.0); MEAN CORPUSCULAR HGB CONC 34.2 G/dL (31.0-37.0); MEAN CORPUSCULAR VOLUME 88 fL (80-100); MONOCYTES # (AUTO) 0.5 K/uL (0.1-1.0); MONOCYTES % (AUTO) 10.8 % (2.0-9.0); NEUTROPHILS # (AUTO) 1.9 K/uL (1.8-7.7); NEUTROPHILS % (AUTO) 45.1 % (40.0-70.0); PLATELET COUNT (AUTO) 194 K/uL (150-450); RED BLOOD CELL COUNT(AUTO) 4.39 MIL/uL (4.00-5.20); RED CELL DISTRIBUTION WIDTH 14.3 % (11.5-14.5)
[2019-01-13] MEDS ORDERED: LOPERAMIDE HCL 2 MG CAPSULE PO PRN (08:15)
[2019-01-13] MEDS ORDERED: BENZOCAINE/MENTHOL LOZENGE MM PRN (08:15)
[2019-01-13] MEDS ORDERED: PETROLATUM,WHITE 28 GM JELLY TP PRN (08:15)
[2019-01-13] MEDS ORDERED: OMEPRAZOLE 20 MG CAPSULE PO PRN (08:15)
[2019-01-13] MEDS ORDERED: MAG HYDROX/AL HYDROX/SIMETH ES 30 ML SUSPENSION UDCUP PO PRN (08:15)
[2019-01-13] MEDS ORDERED: CloNIDine HCL 0.1 MG TABLET PO PRN (08:15)
[2019-01-13] MEDS ORDERED: MAGNESIUM HYDROXIDE SUSPENSION 30 ML UDCUP PO PRN (08:15)
[2019-01-13] MEDS ORDERED: ONDANSETRON HCL 4 MG TABLET PO PRN (08:15)
[2019-01-13] MEDS ORDERED: BACITRACIN 28.4 GM OINTMENT TP PRN (08:15)
[2019-01-13] MEDS ORDERED: IBUPROFEN 600 MG TABLET PO PRN (08:15)
[2019-01-13] MEDS ORDERED: DOCUSATE SODIUM 100 MG CAPSULE PO PRN (08:15)
[2019-01-13] MEDS ORDERED: ACETAMINOPHEN 325 MG TABLET PO PRN (08:15)
[2019-01-13 08:39] VITALS: BP 122/73
[2019-01-13 09:04] LABS: ALANINE AMINOTRANSFERASE 14 U/L (12-78); ALBUMIN 3.6 g/dL (3.4-5.0); ALKALINE PHOSPHATASE 43 U/L (46-116); ANION GAP 9 mmol/L (8-16); ASPARTATE AMINOTRANSFERASE 19 U/L (15-37); BILIRUBIN,TOTAL 0.4 mg/dL (0.1-1.0); CARBON DIOXIDE 26 mmol/L (22-29); CHLORIDE 106 mmol/L (98-107); CHOL/HDL RATIO 2.4 (3.9-5.7); CHOLESTEROL 130 mg/dL (131-200); CREATININE 0.58 mg/dL (0.60-1.30); FREE T4 (FREE THYROXINE) 1.18 ng/dL (0.76-1.46); GLOMERULAR FILTR. RATE CALC > 60 mL/min (>60); GLUCOSE,RANDOM 82 mg/dL (70-110); HCG,QUANTITATIVE < 1 mIU/mL (0-6); HDL CHOLESTEROL 54 mg/dL (40-60); HEMOGLOBIN A1C 5.3 % (4.5-6.2); LDL CHOL (CALC.) 67 mg/dL (0-130); POTASSIUM 3.6 mmol/L (3.5-5.1); SODIUM SERUM 141 mmol/L (136-145); THYROID STIMULATING HORMONE 0.74 uIU/mL (0.36-3.74); TOTAL PROTEIN, SERUM 6.2 g/dL (6.4-8.2); TRIGLYCERIDES 46 mg/dL (15-150); UREA NITROGEN, BLOOD 10 mg/dL (7-18)
[2019-01-13 16:14] VITALS: BP 121/76
[2019-01-13] MEDS: RisperiDONE 3 MG TABLET PO SCH (20:12)
[2019-01-13] MEDS: BENZTROPINE MESYLATE 1 MG TABLET PO SCH (20:12)
[2019-01-14 07:13] VITALS: BP 120/72
[2019-01-14] MEDS: BENZTROPINE MESYLATE 1 MG TABLET PO SCH ×2 (08:24→20:54)
[2019-01-14] MEDS: RisperiDONE 3 MG TABLET PO SCH ×2 (08:24→20:54)
[2019-01-15 06:00] VITALS: BP 126/70
[2019-01-15 08:22] VITALS: BP 121/79
[2019-01-15] MEDS: RisperiDONE 3 MG TABLET PO SCH ×2 (08:25→21:08)
[2019-01-15] MEDS: LORazepam 2 MG TABLET PO PRN (08:26)
[2019-01-15] MEDS: BENZTROPINE MESYLATE 1 MG TABLET PO SCH ×2 (08:26→20:35)
[2019-01-15 16:19] VITALS: BP 139/86
[2019-01-16 06:58] VITALS: BP 117/65
[2019-01-16] MEDS: RisperiDONE 3 MG TABLET PO SCH ×2 (08:49→20:14)
[2019-01-16] MEDS: LORazepam 2 MG TABLET PO PRN (08:49)
[2019-01-16] MEDS: BENZTROPINE MESYLATE 1 MG TABLET PO SCH ×2 (08:49→20:14)
[2019-01-16 16:11] VITALS: BP 109/63
[2019-01-17 06:30] VITALS: BP 115/73
[2019-01-17] MEDS: BENZTROPINE MESYLATE 1 MG TABLET PO SCH (08:52)
[2019-01-17] MEDS: LORazepam 2 MG TABLET PO PRN (08:52)
[2019-01-17] MEDS: RisperiDONE 3 MG TABLET PO SCH (08:52)
[2019-01-17 12:29] VITALS: BP 119/71
[2019-01-17 16:11] VITALS: BP 117/76
== END 2019-01-17 17:36 | disposition home or self-care (01) | DRG 750 ==
LOC: B3A 17:16
PROVIDERS: ADMIT Psychiatry & Neurology Psychiatry; ATTEND Psychiatry & Neurology Psychiatry
DX: F25.9 Schizoaffective disorder, unspecified (principal); Z91.14 Patient's other noncompliance with medication regimen; E55.9 Vitamin D deficiency, unspecified; E66.9 Obesity, unspecified; F32.9 Major depressive disorder, single episode, unspecified; G47.00 Insomnia, unspecified; K21.9 Gastro-esophageal reflux disease without esophagitis; F15.10 Other stimulant abuse, uncomplicated; Z88.8 Allergy status to other drugs, medicaments and biological substances; Z79.899 Other long term (current) drug therapy
CPT/HCPCS: 83036; 84439; 84443; 87081

== ENCOUNTER 2019-03-08 12:32 | Inpatient (IN) | payer MEDICAID ==
[2019-03-08 12:40] VITALS: BP 151/101
[2019-03-08] MEDS ORDERED: TOPI25 PO (12:49)
[2019-03-08] MEDS ORDERED: ZOLPIDEM TARTRATE 10 MG TABLET PO PRN (13:45)
[2019-03-08] MEDS ORDERED: LORazepam 2 MG TABLET PO PRN (13:45)
[2019-03-08] MEDS ORDERED: HALOPERIDOL 5 MG TABLET PO PRN (13:45)
[2019-03-08 14:41] VITALS: BP 103/65
[2019-03-08 16:13] VITALS: BP 133/69
[2019-03-09 05:47] VITALS: BP 127/78
[2019-03-09] MEDS ORDERED: IBUPROFEN 600 MG TABLET PO PRN (07:15)
[2019-03-09] MEDS ORDERED: BACITRACIN 28.4 GM OINTMENT TP PRN (07:15)
[2019-03-09] MEDS ORDERED: PETROLATUM,WHITE 28 GM JELLY TP PRN (07:15)
[2019-03-09] MEDS ORDERED: MAG HYDROX/AL HYDROX/SIMETH ES 30 ML SUSPENSION UDCUP PO PRN (07:15)
[2019-03-09] MEDS ORDERED: MAGNESIUM HYDROXIDE SUSPENSION 30 ML UDCUP PO PRN (07:15)
[2019-03-09] MEDS ORDERED: ONDANSETRON HCL 4 MG TABLET PO PRN (07:15)
[2019-03-09] MEDS ORDERED: ACETAMINOPHEN 325 MG TABLET PO PRN (07:15)
[2019-03-09] MEDS ORDERED: CloNIDine HCL 0.1 MG TABLET PO PRN (07:15)
[2019-03-09] MEDS ORDERED: LOPERAMIDE HCL 2 MG CAPSULE PO PRN (07:15)
[2019-03-09] MEDS ORDERED: BENZOCAINE/MENTHOL LOZENGE MM PRN (07:15)
[2019-03-09 07:18] VITALS: BP 127/78
[2019-03-09] MEDS: OMEPRAZOLE 20 MG CAPSULE PO SCH (08:22)
[2019-03-09] MEDS: DOCUSATE SODIUM 100 MG CAPSULE PO SCH (08:22)
[2019-03-09 10:48] VITALS: BP 134/83
[2019-03-09] MEDS: BENZTROPINE MESYLATE 1 MG TABLET PO SCH ×2 (11:44→16:36)
[2019-03-09 16:18] VITALS: BP 131/87
[2019-03-09] MEDS: RisperiDONE 3 MG TABLET PO SCH (20:42)
[2019-03-10 08:11] VITALS: BP 126/71
[2019-03-10] MEDS: BENZTROPINE MESYLATE 1 MG TABLET PO SCH ×2 (08:20→16:34)
[2019-03-10] MEDS: OMEPRAZOLE 20 MG CAPSULE PO SCH (08:20)
[2019-03-10] MEDS: DOCUSATE SODIUM 100 MG CAPSULE PO SCH (08:20)
[2019-03-10 08:21] LABS: BASOPHILS % (AUTO) 0.4 % (0.0-2.0); EOSINOPHILS % (AUTO) 3.5 % (1.0-6.0); HEMATOCRIT 39.6 % (36-46); HEMOGLOBIN 13.4 g/dL (12.0-16.0); LYMPHOCYTES # (AUTO) 1.6 K/uL (1.0-4.8); LYMPHOCYTES % (AUTO) 37.7 % (22.0-44.0); MEAN CORPUSCULAR HEMOGLOBIN 29.6 pg (26.0-34.0); MEAN CORPUSCULAR HGB CONC 33.8 G/dL (31.0-37.0); MEAN CORPUSCULAR VOLUME 88 fL (80-100); MONOCYTES # (AUTO) 0.4 K/uL (0.1-1.0); MONOCYTES % (AUTO) 8.7 % (2.0-9.0); NEUTROPHILS # (AUTO) 2.2 K/uL (1.8-7.7); NEUTROPHILS % (AUTO) 49.7 % (40.0-70.0); PLATELET COUNT (AUTO) 174 K/uL (150-450); RED BLOOD CELL COUNT(AUTO) 4.52 MIL/uL (4.00-5.20); RED CELL DISTRIBUTION WIDTH 14.5 % (11.5-14.5)
[2019-03-10 08:46] LABS: ALANINE AMINOTRANSFERASE 17 U/L (12-78); ALBUMIN 3.3 g/dL (3.4-5.0); ALKALINE PHOSPHATASE 48 U/L (46-116); ANION GAP 8 mmol/L (8-16); ASPARTATE AMINOTRANSFERASE 15 U/L (15-37); BILIRUBIN,TOTAL 0.3 mg/dL (0.1-1.0); CALCIUM, TOTAL 8.3 mg/dL (8.8-10.5); CARBON DIOXIDE 29 mmol/L (22-29); CHLORIDE 104 mmol/L (98-107); CHOL/HDL RATIO 2.4 (3.9-5.7); CHOLESTEROL 139 mg/dL (131-200); CREATININE 0.65 mg/dL (0.60-1.30); FREE T4 (FREE THYROXINE) 1.09 ng/dL (0.76-1.46); GLOMERULAR FILTR. RATE CALC > 60 mL/min (>60); GLUCOSE,RANDOM 86 mg/dL (70-110); HCG,QUANTITATIVE < 1 mIU/mL (0-6); HDL CHOLESTEROL 57 mg/dL (40-60); LDL CHOL (CALC.) 67 mg/dL (0-130); POTASSIUM 3.4 mmol/L (3.5-5.1); SODIUM SERUM 141 mmol/L (136-145); THYROID STIMULATING HORMONE 0.61 uIU/mL (0.36-3.74); TOTAL PROTEIN, SERUM 6.4 g/dL (6.4-8.2); TRIGLYCERIDES 73 mg/dL (15-150); UREA NITROGEN, BLOOD 8 mg/dL (7-18)
[2019-03-10 08:47] LABS: HEMOGLOBIN A1C 5.2 % (4.5-6.2)
[2019-03-10] MEDS ORDERED: POTASSIUM CHLORIDE 20 MEQ ER TABLET PO ONE (12:30)
[2019-03-10 17:59] VITALS: BP 101/62
[2019-03-10] MEDS: RisperiDONE 3 MG TABLET PO SCH (20:07)
[2019-03-11] MEDS: BENZTROPINE MESYLATE 1 MG TABLET PO SCH ×2 (08:20→16:33)
[2019-03-11] MEDS: OMEPRAZOLE 20 MG CAPSULE PO SCH (08:20)
[2019-03-11] MEDS: DOCUSATE SODIUM 100 MG CAPSULE PO SCH (08:20)
[2019-03-11 09:29] LABS: ANION GAP 7 mmol/L (8-16); CALCIUM, TOTAL 8.5 mg/dL (8.8-10.5); CARBON DIOXIDE 26 mmol/L (22-29); CHLORIDE 107 mmol/L (98-107); CREATININE 0.65 mg/dL (0.60-1.30); GLOMERULAR FILTR. RATE CALC > 60 mL/min (>60); GLUCOSE,RANDOM 87 mg/dL (70-110); POTASSIUM 3.7 mmol/L (3.5-5.1); SODIUM SERUM 140 mmol/L (136-145); UREA NITROGEN, BLOOD 7 mg/dL (7-18)
[2019-03-11 16:22] VITALS: BP 127/64
[2019-03-11] MEDS: RisperiDONE 3 MG TABLET PO SCH (20:09)
[2019-03-12 00:16] VITALS: BP 107/62
[2019-03-12 08:10] VITALS: BP 124/64
[2019-03-12] MEDS: OMEPRAZOLE 20 MG CAPSULE PO SCH (08:29)
[2019-03-12] MEDS: DOCUSATE SODIUM 100 MG CAPSULE PO SCH (08:30)
[2019-03-12] MEDS: BENZTROPINE MESYLATE 1 MG TABLET PO SCH (08:30)
[2019-03-12] MEDS ORDERED: RISP3 PO (10:27)
[2019-03-12] MEDS ORDERED: BENZ1TAB10 PO (10:27)
== END 2019-03-12 11:45 | disposition home or self-care (01) | DRG 750 ==
LOC: B2S 14:09
PROVIDERS: ADMIT Psychiatry & Neurology Psychiatry; ATTEND Psychiatry & Neurology Psychiatry
DX: F25.9 Schizoaffective disorder, unspecified (principal); Z59.0 Homelessness; E55.9 Vitamin D deficiency, unspecified; E66.9 Obesity, unspecified; F17.200 Nicotine dependence, unspecified, uncomplicated; F41.9 Anxiety disorder, unspecified; G47.00 Insomnia, unspecified; K21.9 Gastro-esophageal reflux disease without esophagitis; F15.90 Other stimulant use, unspecified, uncomplicated; G89.29 Other chronic pain
CPT/HCPCS: 83036; 84439; 84443

== ENCOUNTER 2019-04-10 01:50 | Inpatient (IN) | payer MEDICAID ==
[~2019-04-10] VITALS: Ht 172.7 cm; Wt 89.9 kg
[2019-04-10 01:56] VITALS: BP 148/93
[2019-04-10] MEDS ORDERED: HALOPERIDOL 5 MG TABLET PO PRN ×2 (02:30→08:00)
[2019-04-10] MEDS ORDERED: LORazepam 2 MG TABLET PO PRN (02:30)
[2019-04-10] MEDS ORDERED: ZOLPIDEM TARTRATE 10 MG TABLET PO PRN ×2 (02:30→08:00)
[2019-04-10 02:57] VITALS: BP 142/90
[2019-04-10] MEDS ORDERED: INFLUENZA VIRUS VACCINE QVS 2019-20 (3YR+)/PF 60 MCG/0.5 ML SYRINGE IM ONE (06:45)
[2019-04-10] MEDS: LORazepam 2 MG TABLET PO PRN ×2 (10:19→19:34)
[2019-04-10] MEDS: BENZTROPINE MESYLATE 1 MG TABLET PO SCH (17:01)
[2019-04-10] MEDS: RisperiDONE 3 MG TABLET PO SCH (20:12)
[2019-04-10] MEDS ORDERED: ONDANSETRON HCL 4 MG TABLET PO PRN (22:30)
[2019-04-10] MEDS ORDERED: BACITRACIN 28.4 GM OINTMENT TP PRN (22:30)
[2019-04-10] MEDS ORDERED: MAGNESIUM HYDROXIDE SUSPENSION 30 ML UDCUP PO PRN (22:30)
[2019-04-10] MEDS ORDERED: MAG HYDROX/AL HYDROX/SIMETH ES 30 ML SUSPENSION UDCUP PO PRN (22:30)
[2019-04-10] MEDS ORDERED: LOPERAMIDE HCL 2 MG CAPSULE PO PRN (22:30)
[2019-04-10] MEDS ORDERED: IBUPROFEN 600 MG TABLET PO PRN (22:30)
[2019-04-10] MEDS ORDERED: OMEPRAZOLE 20 MG CAPSULE PO PRN (22:30)
[2019-04-10] MEDS ORDERED: ACETAMINOPHEN 325 MG TABLET PO PRN (22:30)
[2019-04-10] MEDS ORDERED: BENZOCAINE/MENTHOL LOZENGE MM PRN (22:30)
[2019-04-10] MEDS ORDERED: DOCUSATE SODIUM 100 MG CAPSULE PO PRN (22:30)
[2019-04-10] MEDS ORDERED: PETROLATUM,WHITE 28 GM JELLY TP PRN (22:30)
[2019-04-10] MEDS ORDERED: CloNIDine HCL 0.1 MG TABLET PO PRN (22:30)
[2019-04-11] MEDS: BENZTROPINE MESYLATE 1 MG TABLET PO SCH ×2 (08:28→16:33)
[2019-04-11] MEDS: LORazepam 2 MG TABLET PO PRN (11:39)
[2019-04-11 16:35] VITALS: BP 125/54
[2019-04-11] MEDS: RisperiDONE 3 MG TABLET PO SCH (20:24)
[2019-04-12] MEDS: BENZTROPINE MESYLATE 1 MG TABLET PO SCH ×2 (08:12→16:12)
[2019-04-12 16:09] VITALS: BP 139/79
[2019-04-12] MEDS: RisperiDONE 3 MG TABLET PO SCH (20:33)
[2019-04-13] MEDS: BENZTROPINE MESYLATE 1 MG TABLET PO SCH ×2 (08:58→16:28)
[2019-04-13 16:09] VITALS: BP 120/95
[2019-04-13] MEDS: LORazepam 2 MG TABLET PO PRN (18:12)
[2019-04-13] MEDS: RisperiDONE 3 MG TABLET PO SCH (20:38)
[2019-04-14] MEDS: BENZTROPINE MESYLATE 1 MG TABLET PO SCH (08:13)
[2019-04-14] MEDS: LORazepam 2 MG TABLET PO PRN (14:37)
[2019-04-14 16:06] VITALS: BP 121/75
[2019-04-15 08:36] LABS: APPEARANCE,URINE CLEAR (CLEAR); BILIRUBIN,URINE NEGATIVE (NEGATIVE); GLUCOSE, URINE (UA) NEGATIVE (NEGATIVE); KETONES,URINE NEGATIVE (NEGATIVE); LEUKOCYTE ESTERASE ,URINE NEGATIVE (NEGATIVE); NITRATE,URINE NEGATIVE (NEGATIVE); OCCULT BLOOD,URINE NEGATIVE (NEGATIVE); PH,URINE 7.5 (5.0-8.0); PROTEIN,URINE NEGATIVE (NEGATIVE); UROBILINOGEN,URINE 0.2 mg/dL (<=1.0)
[2019-04-15 08:44] LABS: AMPHET/METH SCREEN,URINE NEGATIVE (NEGATIVE); BARBITURATE SCREEN, URINE NEGATIVE (NEGATIVE); BENZODIAZEPINES SCREEN,URINE NEGATIVE (NEGATIVE); CANNABINOID SCREEN,URINE NEGATIVE (NEGATIVE); COCAINE SCREEN,URINE NEGATIVE (NEGATIVE); METHADONE SCREEN, URINE NEGATIVE (NEGATIVE); OPIATE SCREEN,URINE NEGATIVE (NEGATIVE)
[2019-04-15 08:46] LABS: PHENCYCLIDINE SCREEN,URINE NEGATIVE (NEGATIVE)
== END 2019-04-14 16:40 | disposition home or self-care (01) | DRG 750 ==
LOC: B3A 02:57
PROVIDERS: ADMIT Psychiatry & Neurology Child & Adolescent Psychiatry; ATTEND Psychiatry & Neurology Psychiatry
DX: F20.0 Paranoid schizophrenia (principal); Z59.0 Homelessness; E55.9 Vitamin D deficiency, unspecified; F31.9 Bipolar disorder, unspecified; E66.9 Obesity, unspecified; K21.9 Gastro-esophageal reflux disease without esophagitis; F41.9 Anxiety disorder, unspecified; G47.00 Insomnia, unspecified; Z87.891 Personal history of nicotine dependence; Z88.8 Allergy status to other drugs, medicaments and biological substances; Z68.30 Body mass index [BMI] 30.0-30.9, adult
CPT/HCPCS: 80307; 87081

== ENCOUNTER 2019-05-05 11:19 | Inpatient (IN) | payer MEDICAID, OTHER ==
[~2019-05-05] VITALS: Ht 170.2 cm; Wt 87.1 kg
[2019-05-05] MEDS ORDERED: LORazepam 2 MG/ML VIAL ONE (11:26)
[2019-05-05] MEDS ORDERED: HALOPERIDOL LACTATE 5 MG/ML VIAL ONE (11:26)
[2019-05-05] MEDS ORDERED: DiphenhydrAMINE HCL 50 MG/ML VIAL ONE (11:26)
[2019-05-05] MEDS ORDERED: DiphenhydrAMINE HCL 50 MG/ML VIAL IM ONE (11:30)
[2019-05-05] MEDS ORDERED: HALOPERIDOL LACTATE 5 MG/ML VIAL IM ONE (11:30)
[2019-05-05] MEDS ORDERED: LORazepam 2 MG/ML VIAL IM ONE (11:30)
[2019-05-05 11:57] LABS: BASOPHILS % (AUTO) 0.6 % (0.0-2.0); EOSINOPHILS % (AUTO) 3.1 % (1.0-6.0); HEMATOCRIT 42.1 % (36-46); LYMPHOCYTES # (AUTO) 1.9 K/uL (1.0-4.8); LYMPHOCYTES % (AUTO) 34.2 % (22.0-44.0); MEAN CORPUSCULAR HEMOGLOBIN 29.4 pg (26.0-34.0); MEAN CORPUSCULAR HGB CONC 33.2 G/dL (31.0-37.0); MEAN CORPUSCULAR VOLUME 88 fL (80-100); MONOCYTES # (AUTO) 0.4 K/uL (0.1-1.0); MONOCYTES % (AUTO) 7.3 % (2.0-9.0); NEUTROPHILS # (AUTO) 3.1 K/uL (1.8-7.7); NEUTROPHILS % (AUTO) 54.8 % (40.0-70.0); PLATELET COUNT (AUTO) 186 K/uL (150-450); RED BLOOD CELL COUNT(AUTO) 4.77 MIL/uL (4.00-5.20); RED CELL DISTRIBUTION WIDTH 14.3 % (11.5-14.5)
[2019-05-05 12:22] LABS: ANION GAP 10 mmol/L (8-16); CALCIUM, TOTAL 9.7 mg/dL (8.8-10.5); CARBON DIOXIDE 27 mmol/L (22-29); CHLORIDE 103 mmol/L (98-107); CREATININE 0.79 mg/dL (0.60-1.30); GLOMERULAR FILTR. RATE CALC > 60 mL/min (>60); GLUCOSE,RANDOM 89 mg/dL (70-110); POTASSIUM 4.4 mmol/L (3.5-5.1); SODIUM SERUM 140 mmol/L (136-145); UREA NITROGEN, BLOOD 14 mg/dL (7-18)
[2019-05-05 12:23] LABS: ALBUMIN 3.8 g/dL (3.4-5.0)
[2019-05-05 12:38] LABS: ALANINE AMINOTRANSFERASE 11 U/L (12-78); ALKALINE PHOSPHATASE 52 U/L (46-116); ASPARTATE AMINOTRANSFERASE 17 U/L (15-37); BILIRUBIN,TOTAL 0.5 mg/dL (0.1-1.0); TOTAL PROTEIN, SERUM 6.9 g/dL (6.4-8.2)
[2019-05-05] MEDS ORDERED: LORazepam 2 MG TABLET PO PRN (13:15)
[2019-05-05] MEDS ORDERED: ZOLPIDEM TARTRATE 10 MG TABLET PO PRN (13:15)
[2019-05-05] MEDS ORDERED: HALOPERIDOL 5 MG TABLET PO PRN (13:15)
[2019-05-05] MEDS ORDERED: INFLUENZA VIRUS VACCINE QVS 2019-20 (3YR+)/PF 60 MCG/0.5 ML SYRINGE IM ONE (16:00)
[2019-05-05] MEDS: BENZTROPINE MESYLATE 1 MG TABLET PO SCH (17:17)
[2019-05-05] MEDS: RisperiDONE 3 MG TABLET PO SCH (17:18)
[2019-05-06] MEDS ORDERED: MAGNESIUM HYDROXIDE SUSPENSION 30 ML UDCUP PO PRN (07:15)
[2019-05-06] MEDS ORDERED: CloNIDine HCL 0.1 MG TABLET PO PRN (07:15)
[2019-05-06] MEDS ORDERED: BENZOCAINE/MENTHOL LOZENGE MM PRN (07:15)
[2019-05-06] MEDS ORDERED: IBUPROFEN 600 MG TABLET PO PRN (07:15)
[2019-05-06] MEDS ORDERED: ACETAMINOPHEN 325 MG TABLET PO PRN (07:15)
[2019-05-06] MEDS ORDERED: DOCUSATE SODIUM 100 MG CAPSULE PO PRN (07:15)
[2019-05-06] MEDS ORDERED: PETROLATUM,WHITE 28 GM JELLY TP PRN (07:15)
[2019-05-06] MEDS ORDERED: BACITRACIN 28.4 GM OINTMENT TP PRN (07:15)
[2019-05-06] MEDS ORDERED: ONDANSETRON HCL 4 MG TABLET PO PRN (07:15)
[2019-05-06] MEDS ORDERED: LOPERAMIDE HCL 2 MG CAPSULE PO PRN (07:15)
[2019-05-06] MEDS ORDERED: OMEPRAZOLE 20 MG CAPSULE PO PRN (07:15)
[2019-05-06] MEDS ORDERED: MAG HYDROX/AL HYDROX/SIMETH ES 30 ML SUSPENSION UDCUP PO PRN (07:15)
[2019-05-06] MEDS: RisperiDONE 3 MG TABLET PO SCH ×2 (08:54→18:22)
[2019-05-06] MEDS: BENZTROPINE MESYLATE 1 MG TABLET PO SCH ×2 (08:54→18:22)
[2019-05-07 08:08] VITALS: BP 109/70
[2019-05-07] MEDS: RisperiDONE 3 MG TABLET PO SCH ×2 (09:11→16:20)
[2019-05-07] MEDS: BENZTROPINE MESYLATE 1 MG TABLET PO SCH ×2 (09:11→16:20)
[2019-05-07 16:46] VITALS: BP 111/88
[2019-05-08 05:09] VITALS: BP 105/78
[2019-05-08 08:16] VITALS: BP 140/84
[2019-05-08] MEDS: RisperiDONE 3 MG TABLET PO SCH ×2 (09:05→17:13)
[2019-05-08] MEDS: BENZTROPINE MESYLATE 1 MG TABLET PO SCH ×2 (09:05→17:14)
[2019-05-08 16:24] VITALS: BP 126/73
[2019-05-09 04:30] VITALS: BP 112/70
[2019-05-09] MEDS: BENZTROPINE MESYLATE 1 MG TABLET PO SCH ×2 (08:38→17:00)
[2019-05-09] MEDS: RisperiDONE 3 MG TABLET PO SCH ×2 (08:38→17:00)
[2019-05-09 11:20] VITALS: BP 106/58
[2019-05-09] MEDS ORDERED: BENZ1TAB10 PO (14:18)
[2019-05-09] MEDS ORDERED: RISP3 PO (14:18)
== END 2019-05-09 17:35 | disposition home or self-care (01) | DRG 750 ==
LOC: EMS 11:23 → B3A 13:38
PROVIDERS: ADMIT Psychiatry & Neurology Psychiatry; ATTEND Psychiatry & Neurology Psychiatry
DX: F25.9 Schizoaffective disorder, unspecified (principal); E55.9 Vitamin D deficiency, unspecified; E66.9 Obesity, unspecified; K21.9 Gastro-esophageal reflux disease without esophagitis; Z28.21 Immunization not carried out because of patient refusal; Z88.8 Allergy status to other drugs, medicaments and biological substances; F31.9 Bipolar disorder, unspecified; G47.00 Insomnia, unspecified; Z87.891 Personal history of nicotine dependence; F12.90 Cannabis use, unspecified, uncomplicated; F41.9 Anxiety disorder, unspecified; Z68.30 Body mass index [BMI] 30.0-30.9, adult
CPT/HCPCS: 87081; 99291; G0480; J1200; J1630; J2060

== ENCOUNTER 2019-05-25 16:17 | Inpatient (IN) | payer MEDICAID, OTHER ==
[~2019-05-25] VITALS: Ht 172.7 cm; Wt 82.1 kg
[2019-05-25 17:48] LABS: BASOPHILS % (AUTO) 0.4 % (0.0-2.0); EOSINOPHILS % (AUTO) 3.3 % (1.0-6.0); HEMATOCRIT 39.7 % (36-46); HEMOGLOBIN 13.3 g/dL (12.0-16.0); LYMPHOCYTES # (AUTO) 1.7 K/uL (1.0-4.8); LYMPHOCYTES % (AUTO) 29.8 % (22.0-44.0); MEAN CORPUSCULAR HEMOGLOBIN 29.7 pg (26.0-34.0); MEAN CORPUSCULAR HGB CONC 33.4 G/dL (31.0-37.0); MEAN CORPUSCULAR VOLUME 89 fL (80-100); MONOCYTES # (AUTO) 0.5 K/uL (0.1-1.0); MONOCYTES % (AUTO) 8.7 % (2.0-9.0); NEUTROPHILS # (AUTO) 3.4 K/uL (1.8-7.7); NEUTROPHILS % (AUTO) 57.8 % (40.0-70.0); PLATELET COUNT (AUTO) 207 K/uL (150-450); RED BLOOD CELL COUNT(AUTO) 4.47 MIL/uL (4.00-5.20); RED CELL DISTRIBUTION WIDTH 14.2 % (11.5-14.5)
[2019-05-25 17:53] LABS: ANION GAP 2 mmol/L (8-16); CALCIUM, TOTAL 8.9 mg/dL (8.8-10.5); CARBON DIOXIDE 33 mmol/L (22-29); CHLORIDE 105 mmol/L (98-107); CREATININE 0.59 mg/dL (0.60-1.30); GLOMERULAR FILTR. RATE CALC > 60 mL/min (>60); GLUCOSE,RANDOM 102 mg/dL (70-110); POTASSIUM 4.7 mmol/L (3.5-5.1); SODIUM SERUM 140 mmol/L (136-145); UREA NITROGEN, BLOOD 12 mg/dL (7-18)
[2019-05-25 17:59] LABS: ALANINE AMINOTRANSFERASE 16 U/L (12-78); ALBUMIN 3.3 g/dL (3.4-5.0); ALKALINE PHOSPHATASE 49 U/L (46-116); ASPARTATE AMINOTRANSFERASE 14 U/L (15-37); BILIRUBIN,TOTAL 0.3 mg/dL (0.1-1.0); TOTAL PROTEIN, SERUM 6.4 g/dL (6.4-8.2)
[2019-05-25 18:39] LABS: AMPHET/METH SCREEN,URINE POSITIVE (NEGATIVE); BARBITURATE SCREEN, URINE NEGATIVE (NEGATIVE); BENZODIAZEPINES SCREEN,URINE NEGATIVE (NEGATIVE); CANNABINOID SCREEN,URINE NEGATIVE (NEGATIVE); COCAINE SCREEN,URINE NEGATIVE (NEGATIVE); METHADONE SCREEN, URINE NEGATIVE (NEGATIVE); OPIATE SCREEN,URINE NEGATIVE (NEGATIVE); PHENCYCLIDINE SCREEN,URINE NEGATIVE (NEGATIVE)
[2019-05-25] MEDS ORDERED: ZOLPIDEM TARTRATE 10 MG TABLET PO PRN (20:00)
[2019-05-25] MEDS ORDERED: HALOPERIDOL 5 MG TABLET PO PRN (20:00)
[2019-05-25] MEDS ORDERED: LORazepam 2 MG TABLET PO PRN (20:00)
[2019-05-25 20:38] LABS: HCG,QUANTITATIVE < 1 mIU/mL (0-6)
[2019-05-26] MEDS ORDERED: INFLUENZA VIRUS VACCINE QVS 2019-20 (3YR+)/PF 60 MCG/0.5 ML SYRINGE IM ONE (02:30)
[2019-05-26] MEDS ORDERED: ACETAMINOPHEN 325 MG TABLET PO PRN (06:00)
[2019-05-26] MEDS ORDERED: LOPERAMIDE HCL 2 MG CAPSULE PO PRN (06:00)
[2019-05-26] MEDS ORDERED: MAG HYDROX/AL HYDROX/SIMETH ES 30 ML SUSPENSION UDCUP PO PRN (06:00)
[2019-05-26] MEDS ORDERED: DOCUSATE SODIUM 100 MG CAPSULE PO PRN (06:00)
[2019-05-26] MEDS ORDERED: BENZOCAINE/MENTHOL LOZENGE MM PRN (06:00)
[2019-05-26] MEDS ORDERED: BACITRACIN 28.4 GM OINTMENT TP PRN (06:00)
[2019-05-26] MEDS ORDERED: MAGNESIUM HYDROXIDE SUSPENSION 30 ML UDCUP PO PRN (06:00)
[2019-05-26] MEDS ORDERED: PETROLATUM,WHITE 28 GM JELLY TP PRN (06:00)
[2019-05-26] MEDS ORDERED: IBUPROFEN 600 MG TABLET PO PRN (06:00)
[2019-05-26] MEDS ORDERED: CloNIDine HCL 0.1 MG TABLET PO PRN (06:00)
[2019-05-26] MEDS ORDERED: ONDANSETRON HCL 4 MG TABLET PO PRN (06:00)
[2019-05-26] MEDS ORDERED: OMEPRAZOLE 20 MG CAPSULE PO PRN (06:00)
[2019-05-26 08:04] LABS: CHOL/HDL RATIO 2.6 (3.9-5.7)
[2019-05-26 08:41] VITALS: BP 122/72
[2019-05-27 08:32] VITALS: BP 112/78
[2019-05-27] MEDS: RisperiDONE 3 MG TABLET PO SCH ×2 (08:50→16:46)
[2019-05-27] MEDS: BENZTROPINE MESYLATE 1 MG TABLET PO SCH ×2 (08:50→16:46)
[2019-05-27 17:28] VITALS: BP 120/77
[2019-05-28 08:36] VITALS: BP 124/70
[2019-05-28] MEDS: BENZTROPINE MESYLATE 1 MG TABLET PO SCH ×2 (09:16→16:54)
[2019-05-28] MEDS: RisperiDONE 3 MG TABLET PO SCH ×2 (09:16→16:54)
[2019-05-28 16:11] VITALS: BP 127/78
[2019-05-29] MEDS: RisperiDONE 3 MG TABLET PO SCH ×2 (09:17→16:52)
[2019-05-29] MEDS: BENZTROPINE MESYLATE 1 MG TABLET PO SCH ×2 (09:17→16:52)
[2019-05-29 16:32] VITALS: BP 117/72
[2019-05-30 08:22] VITALS: BP 139/65
[2019-05-30] MEDS: BENZTROPINE MESYLATE 1 MG TABLET PO SCH ×2 (09:06→16:44)
[2019-05-30] MEDS: RisperiDONE 2 MG TABLET PO SCH ×2 (09:06→16:45)
[2019-05-30 16:26] VITALS: BP 108/61
[2019-05-31] MEDS: RisperiDONE 2 MG TABLET PO SCH ×2 (08:59→16:56)
[2019-05-31] MEDS: BENZTROPINE MESYLATE 1 MG TABLET PO SCH ×2 (08:59→16:56)
[2019-05-31 09:15] VITALS: BP 103/61
[2019-05-31 17:30] VITALS: BP 133/63
[2019-06-01 08:40] VITALS: BP 117/63
[2019-06-01] MEDS: RisperiDONE 2 MG TABLET PO SCH (09:09)
[2019-06-01] MEDS: BENZTROPINE MESYLATE 1 MG TABLET PO SCH (09:09)
[2019-06-01] MEDS ORDERED: INFLUENZA VIRUS VACCINE QVS 2019-20 (3YR+)/PF 60 MCG/0.5 ML SYRINGE IM ONE (14:45)
== END 2019-06-01 15:10 | disposition home or self-care (01) | DRG 885 ==
LOC: EMS 16:17 → 3EC 21:30
PROVIDERS: ADMIT Psychiatry & Neurology Psychiatry; ATTEND Psychiatry & Neurology Psychiatry
DX: F25.9 Schizoaffective disorder, unspecified (principal); R45.851 Suicidal ideations; F15.10 Other stimulant abuse, uncomplicated; F31.9 Bipolar disorder, unspecified; E55.9 Vitamin D deficiency, unspecified; E66.9 Obesity, unspecified; K21.9 Gastro-esophageal reflux disease without esophagitis; F41.9 Anxiety disorder, unspecified; G47.00 Insomnia, unspecified; Z87.891 Personal history of nicotine dependence; Z68.27 Body mass index [BMI] 27.0-27.9, adult
CPT/HCPCS: 90686; G0480

== ENCOUNTER 2019-06-19 11:02 | Inpatient (IN) | payer MEDICAID, OTHER ==
[~2019-06-19] VITALS: Ht 167.6 cm; Wt 81.9 kg
[2019-06-19] MEDS ORDERED: DIPH25CA85 PO (14:29)
[2019-06-19] MEDS ORDERED: TOPI25 PO (14:29)
[2019-06-19 14:56] LABS: HEMATOCRIT 39.2 % (36-46); HEMOGLOBIN 12.3 g/dL (12.0-16.0); LYMPHOCYTES # (AUTO) 0.3 K/uL (1.0-4.8); LYMPHOCYTES % (AUTO) 3.4 % (22.0-44.0); MEAN CORPUSCULAR HEMOGLOBIN 26.6 pg (26.0-34.0); MEAN CORPUSCULAR HGB CONC 31.4 G/dL (31.0-37.0); MEAN CORPUSCULAR VOLUME 85 fL (80-100); MONOCYTES # (AUTO) 0.1 K/uL (0.1-1.0); MONOCYTES % (AUTO) 0.9 % (2.0-9.0); NEUTROPHILS # (AUTO) 6.7 K/uL (1.8-7.7); PLATELET COUNT (AUTO) 282 K/uL (150-450); RED BLOOD CELL COUNT(AUTO) 4.64 MIL/uL (4.00-5.20); RED CELL DISTRIBUTION WIDTH 17.5 % (11.5-14.5)
[2019-06-19] MEDS ORDERED: ZOLPIDEM TARTRATE 10 MG TABLET PO PRN (15:00)
[2019-06-19] MEDS ORDERED: LORazepam 2 MG TABLET PO PRN (15:00)
[2019-06-19] MEDS ORDERED: HALOPERIDOL 5 MG TABLET PO PRN (15:00)
[2019-06-19] MEDS ORDERED: RISP2 PO (15:06)
[2019-06-19 15:12] LABS: NEUTROPHILS % (AUTO) 91.7 % (40.0-70.0)
[2019-06-19 15:19] LABS: ANION GAP 11 mmol/L (8-16); CALCIUM, TOTAL 8.6 mg/dL (8.8-10.5); CARBON DIOXIDE 22 mmol/L (22-29); CHLORIDE 108 mmol/L (98-107); CREATININE 1.09 mg/dL (0.60-1.30); GLOMERULAR FILTR. RATE CALC 54 mL/min (>60); GLUCOSE,RANDOM 114 mg/dL (70-110); POTASSIUM 3.7 mmol/L (3.5-5.1); SODIUM SERUM 141 mmol/L (136-145); UREA NITROGEN, BLOOD 6 mg/dL (7-18)
[2019-06-19 15:25] LABS: ALANINE AMINOTRANSFERASE 18 U/L (12-78); ALBUMIN 3.2 g/dL (3.4-5.0); ALKALINE PHOSPHATASE 119 U/L (46-116); ASPARTATE AMINOTRANSFERASE 14 U/L (15-37); BILIRUBIN,TOTAL 0.2 mg/dL (0.1-1.0); TOTAL PROTEIN, SERUM 6.5 g/dL (6.4-8.2)
[2019-06-19 17:44] VITALS: BP 132/80
[2019-06-20 08:12] LABS: CHOL/HDL RATIO 2.9 (3.9-5.7); CHOLESTEROL 167 mg/dL (131-200); FREE T4 (FREE THYROXINE) 0.97 ng/dL (0.76-1.46); HCG,QUANTITATIVE < 1 mIU/mL (0-6); HDL CHOLESTEROL 58 mg/dL (40-60); LDL CHOL (CALC.) 94 mg/dL (0-130); THYROID STIMULATING HORMONE 0.76 uIU/mL (0.36-3.74); TRIGLYCERIDES 76 mg/dL (15-150)
[2019-06-20] MEDS ORDERED: ACETAMINOPHEN 325 MG TABLET PO PRN (08:15)
[2019-06-20] MEDS ORDERED: MAG HYDROX/AL HYDROX/SIMETH ES 30 ML SUSPENSION UDCUP PO PRN (08:15)
[2019-06-20] MEDS ORDERED: BACITRACIN 28.4 GM OINTMENT TP PRN (08:15)
[2019-06-20] MEDS ORDERED: IBUPROFEN 600 MG TABLET PO PRN (08:15)
[2019-06-20] MEDS ORDERED: PETROLATUM,WHITE 28 GM JELLY TP PRN (08:15)
[2019-06-20] MEDS ORDERED: MAGNESIUM HYDROXIDE SUSPENSION 30 ML UDCUP PO PRN (08:15)
[2019-06-20] MEDS ORDERED: CloNIDine HCL 0.1 MG TABLET PO PRN (08:15)
[2019-06-20] MEDS ORDERED: LOPERAMIDE HCL 2 MG CAPSULE PO PRN (08:15)
[2019-06-20] MEDS ORDERED: BENZOCAINE/MENTHOL LOZENGE MM PRN (08:15)
[2019-06-20] MEDS ORDERED: ONDANSETRON HCL 4 MG TABLET PO PRN (08:15)
[2019-06-20] MEDS: OMEPRAZOLE 20 MG CAPSULE PO SCH (09:00)
[2019-06-20] MEDS: DOCUSATE SODIUM 100 MG CAPSULE PO SCH (09:00)
[2019-06-20 16:04] VITALS: BP 149/99
[2019-06-21 08:03] VITALS: BP 130/80
[2019-06-21] MEDS: BENZTROPINE MESYLATE 1 MG TABLET PO SCH ×2 (08:10→16:45)
[2019-06-21] MEDS: RisperiDONE 3 MG TABLET PO SCH ×2 (08:11→16:45)
[2019-06-21] MEDS: DOCUSATE SODIUM 100 MG CAPSULE PO SCH (08:11)
[2019-06-21] MEDS: OMEPRAZOLE 20 MG CAPSULE PO SCH (08:11)
[2019-06-21 16:08] VITALS: BP 130/72
[2019-06-22 05:45] VITALS: BP 138/75
[2019-06-22 08:36] VITALS: BP 122/69
[2019-06-22] MEDS: OMEPRAZOLE 20 MG CAPSULE PO SCH (08:37)
[2019-06-22] MEDS: BENZTROPINE MESYLATE 1 MG TABLET PO SCH ×2 (08:37→16:19)
[2019-06-22] MEDS: RisperiDONE 3 MG TABLET PO SCH ×2 (08:37→16:19)
[2019-06-22] MEDS: DOCUSATE SODIUM 100 MG CAPSULE PO SCH (08:37)
[2019-06-22 16:14] VITALS: BP 129/60
[2019-06-23 04:40] VITALS: BP 127/83
[2019-06-23] MEDS: DOCUSATE SODIUM 100 MG CAPSULE PO SCH (08:39)
[2019-06-23] MEDS: OMEPRAZOLE 20 MG CAPSULE PO SCH (08:39)
[2019-06-23] MEDS: BENZTROPINE MESYLATE 1 MG TABLET PO SCH ×2 (08:39→16:37)
[2019-06-23] MEDS: RisperiDONE 3 MG TABLET PO SCH ×2 (08:39→16:37)
[2019-06-23 16:05] VITALS: BP 129/60
[2019-06-23] MEDS ORDERED: BENZ1TAB10 PO (20:06)
[2019-06-23] MEDS ORDERED: RISP3 PO (20:06)
== END 2019-06-23 20:50 | disposition home or self-care (01) | DRG 750 ==
LOC: EMS 11:07 → B3A 15:43 → UNDOADMIN 16:30
PROVIDERS: ADMIT Psychiatry & Neurology Psychiatry; ATTEND Psychiatry & Neurology Psychiatry
DX: F25.9 Schizoaffective disorder, unspecified (principal); E55.9 Vitamin D deficiency, unspecified; E66.9 Obesity, unspecified; F31.9 Bipolar disorder, unspecified; F41.9 Anxiety disorder, unspecified; G47.00 Insomnia, unspecified; K21.9 Gastro-esophageal reflux disease without esophagitis; F12.90 Cannabis use, unspecified, uncomplicated; Z88.8 Allergy status to other drugs, medicaments and biological substances; Z79.899 Other long term (current) drug therapy; Z68.29 Body mass index [BMI] 29.0-29.9, adult
CPT/HCPCS: 83036; 84439; 84443; 87081; G0480

== ENCOUNTER 2019-08-12 12:00 | Inpatient (IN) | payer MEDICAID ==
[~2019-08-12] VITALS: Ht 167.6 cm; Wt 89.9 kg
[2019-08-12 12:58] VITALS: BP 128/82
[2019-08-12] MEDS ORDERED: TUBERCULIN, PURIFIED PROTEIN DERIVATIVE 5 TU/0.1 ML SYRINGE ID ONE (13:15)
[2019-08-12] MEDS ORDERED: HALOPERIDOL 5 MG TABLET PO PRN (13:15)
[2019-08-12] MEDS ORDERED: ZOLPIDEM TARTRATE 10 MG TABLET PO PRN (13:15)
[2019-08-12 14:15] VITALS: BP 128/82
[2019-08-12] MEDS ORDERED: DiphenhydrAMINE HCL 50 MG/ML VIAL IM ONE (15:00)
[2019-08-12] MEDS ORDERED: LORazepam 2 MG/ML VIAL IM ONE (15:00)
[2019-08-12] MEDS ORDERED: HALOPERIDOL LACTATE 5 MG/ML VIAL IM ONE (15:00)
[2019-08-13 04:36] VITALS: BP 120/68
[2019-08-13] MEDS ORDERED: MAG HYDROX/AL HYDROX/SIMETH ES 30 ML SUSPENSION UDCUP PO PRN (08:15)
[2019-08-13] MEDS ORDERED: DOCUSATE SODIUM 100 MG CAPSULE PO PRN (08:15)
[2019-08-13] MEDS ORDERED: LOPERAMIDE HCL 2 MG CAPSULE PO PRN (08:15)
[2019-08-13] MEDS ORDERED: PETROLATUM,WHITE 28 GM JELLY TP PRN (08:15)
[2019-08-13] MEDS ORDERED: ACETAMINOPHEN 325 MG TABLET PO PRN (08:15)
[2019-08-13] MEDS ORDERED: ONDANSETRON HCL 4 MG TABLET PO PRN (08:15)
[2019-08-13] MEDS ORDERED: MAGNESIUM HYDROXIDE SUSPENSION 30 ML UDCUP PO PRN (08:15)
[2019-08-13] MEDS ORDERED: IBUPROFEN 600 MG TABLET PO PRN (08:15)
[2019-08-13] MEDS ORDERED: BENZOCAINE/MENTHOL LOZENGE MM PRN (08:15)
[2019-08-13] MEDS ORDERED: CloNIDine HCL 0.1 MG TABLET PO PRN (08:15)
[2019-08-13] MEDS ORDERED: BACITRACIN 28.4 GM OINTMENT TP PRN (08:15)
[2019-08-13] MEDS ORDERED: OMEPRAZOLE 20 MG CAPSULE PO PRN (08:15)
[2019-08-13 08:30] LABS: BASOPHILS % (AUTO) 0.6 % (0.0-2.0); EOSINOPHILS % (AUTO) 3.7 % (1.0-6.0); HEMATOCRIT 41.6 % (36-46); HEMOGLOBIN 13.8 g/dL (12.0-16.0); LYMPHOCYTES # (AUTO) 1.4 K/uL (1.0-4.8); MEAN CORPUSCULAR HEMOGLOBIN 29.7 pg (26.0-34.0); MEAN CORPUSCULAR HGB CONC 33.1 G/dL (31.0-37.0); MEAN CORPUSCULAR VOLUME 90 fL (80-100); MONOCYTES # (AUTO) 0.4 K/uL (0.1-1.0); MONOCYTES % (AUTO) 7.4 % (2.0-9.0); NEUTROPHILS # (AUTO) 3.4 K/uL (1.8-7.7); NEUTROPHILS % (AUTO) 62.3 % (40.0-70.0); PLATELET COUNT (AUTO) 224 K/uL (150-450); RED BLOOD CELL COUNT(AUTO) 4.64 MIL/uL (4.00-5.20); RED CELL DISTRIBUTION WIDTH 14.2 % (11.5-14.5)
[2019-08-13 09:13] LABS: ALANINE AMINOTRANSFERASE 22 U/L (12-78); ALBUMIN 3.3 g/dL (3.4-5.0); ALKALINE PHOSPHATASE 67 U/L (46-116); ANION GAP 9 mmol/L (8-16); ASPARTATE AMINOTRANSFERASE 24 U/L (15-37); BILIRUBIN,TOTAL 0.4 mg/dL (0.1-1.0); CALCIUM, TOTAL 8.8 mg/dL (8.8-10.5); CARBON DIOXIDE 27 mmol/L (22-29); CHLORIDE 103 mmol/L (98-107); CHOL/HDL RATIO 2.4 (3.9-5.7); CHOLESTEROL 163 mg/dL (131-200); CREATININE 0.58 mg/dL (0.60-1.30); FREE T4 (FREE THYROXINE) 0.97 ng/dL (0.76-1.46); GLOMERULAR FILTR. RATE CALC > 60 mL/min (>60); GLUCOSE,RANDOM 77 mg/dL (70-110); HCG,QUANTITATIVE < 1 mIU/mL (0-6); HDL CHOLESTEROL 68 mg/dL (40-60); LDL CHOL (CALC.) 77 mg/dL (0-130); POTASSIUM 4.1 mmol/L (3.5-5.1); SODIUM SERUM 139 mmol/L (136-145); TOTAL PROTEIN, SERUM 6.3 g/dL (6.4-8.2); TRIGLYCERIDES 92 mg/dL (15-150); UREA NITROGEN, BLOOD 11 mg/dL (7-18)
[2019-08-14 03:24] VITALS: BP 118/70
[2019-08-14] MEDS: RisperiDONE 3 MG TABLET PO SCH ×2 (08:26→16:31)
[2019-08-14] MEDS: BENZTROPINE MESYLATE 1 MG TABLET PO SCH ×2 (08:26→16:31)
[2019-08-14] MEDS: LORazepam 2 MG TABLET PO PRN (10:46)
[2019-08-14 17:27] VITALS: BP 125/71
[2019-08-15 03:37] VITALS: BP 120/75
[2019-08-15] MEDS: BENZTROPINE MESYLATE 1 MG TABLET PO SCH ×2 (08:33→16:32)
[2019-08-15] MEDS: RisperiDONE 3 MG TABLET PO SCH ×2 (08:33→16:32)
[2019-08-15] MEDS: LORazepam 2 MG TABLET PO PRN (08:36)
[2019-08-15 08:40] VITALS: BP 119/63
[2019-08-15 16:15] VITALS: BP 126/72
[2019-08-16 05:11] VITALS: BP 123/61
[2019-08-16] MEDS: RisperiDONE 3 MG TABLET PO SCH ×2 (08:40→16:48)
[2019-08-16] MEDS: LORazepam 2 MG TABLET PO PRN (08:40)
[2019-08-16] MEDS: BENZTROPINE MESYLATE 1 MG TABLET PO SCH ×2 (08:40→16:48)
[2019-08-16 09:10] VITALS: BP 127/69
[2019-08-16 16:54] VITALS: BP 105/66
[2019-08-17 06:39] VITALS: BP 127/74
[2019-08-17] MEDS: LORazepam 2 MG TABLET PO PRN (08:09)
[2019-08-17] MEDS: RisperiDONE 3 MG TABLET PO SCH ×2 (08:09→16:20)
[2019-08-17] MEDS: BENZTROPINE MESYLATE 1 MG TABLET PO SCH ×2 (08:09→16:20)
[2019-08-17 08:40] VITALS: BP 123/70
[2019-08-17 16:06] VITALS: BP 120/77
[2019-08-18 07:11] VITALS: BP 117/68
[2019-08-18 08:00] VITALS: BP 118/72
[2019-08-18] MEDS: RisperiDONE 3 MG TABLET PO SCH ×2 (08:23→16:02)
[2019-08-18] MEDS: BENZTROPINE MESYLATE 1 MG TABLET PO SCH ×2 (08:23→16:02)
[2019-08-18] MEDS: LORazepam 2 MG TABLET PO PRN ×2 (08:28→16:25)
[2019-08-18 16:24] VITALS: BP 127/75
[2019-08-19 03:17] VITALS: BP 120/61
[2019-08-19] MEDS: BENZTROPINE MESYLATE 1 MG TABLET PO SCH (08:13)
[2019-08-19] MEDS: RisperiDONE 3 MG TABLET PO SCH (08:13)
[2019-08-19 08:20] VITALS: BP 121/69
== END 2019-08-19 10:53 | disposition home or self-care (01) | DRG 750 ==
LOC: B3A 13:18
PROVIDERS: ADMIT Psychiatry & Neurology Psychiatry; ATTEND Psychiatry & Neurology Psychiatry
DX: F25.9 Schizoaffective disorder, unspecified (principal); F10.231 Alcohol dependence with withdrawal delirium; R45.851 Suicidal ideations; F19.10 Other psychoactive substance abuse, uncomplicated; Y90.9 Presence of alcohol in blood, level not specified; Z88.8 Allergy status to other drugs, medicaments and biological substances; G47.00 Insomnia, unspecified; F41.9 Anxiety disorder, unspecified; K21.9 Gastro-esophageal reflux disease without esophagitis; E66.9 Obesity, unspecified; E55.9 Vitamin D deficiency, unspecified; Z68.32 Body mass index [BMI] 32.0-32.9, adult; Z72.0 Tobacco use
CPT/HCPCS: 84439; 84443; J1200; J1630; J2060

== ENCOUNTER 2019-09-14 11:04 | Inpatient (IN) | payer MEDICAID ==
[~2019-09-14 11:04] MED LIST changes: -RISP3 PO; +RISP3TAB14 PO
[2019-09-14] MEDS ORDERED: ZOLPIDEM TARTRATE 10 MG TABLET PO PRN (11:45)
[2019-09-14] MEDS ORDERED: HALOPERIDOL 5 MG TABLET PO PRN (11:45)
[2019-09-14] MEDS ORDERED: HALOPERIDOL LACTATE 5 MG/ML VIAL ONE (12:13)
[2019-09-14] MEDS ORDERED: LORazepam 2 MG/ML VIAL ONE (12:13)
[2019-09-14] MEDS ORDERED: DiphenhydrAMINE HCL 50 MG/ML VIAL ONE (12:14)
[2019-09-14] MEDS ORDERED: LORazepam 2 MG/ML VIAL IM ONE (13:15)
[2019-09-14] MEDS ORDERED: DiphenhydrAMINE HCL 50 MG/ML VIAL IM ONE (13:15)
[2019-09-14] MEDS ORDERED: HALOPERIDOL LACTATE 5 MG/ML VIAL IM ONE (13:15)
[2019-09-14 13:53] VITALS: BP 150/114
[2019-09-14] MEDS: RisperiDONE 3 MG TABLET PO SCH (17:00)
[2019-09-14] MEDS: BENZTROPINE MESYLATE 1 MG TABLET PO SCH (17:00)
[2019-09-15] MEDS ORDERED: CloNIDine HCL 0.1 MG TABLET PO PRN (07:45)
[2019-09-15] MEDS ORDERED: DOCUSATE SODIUM 100 MG CAPSULE PO PRN (07:45)
[2019-09-15] MEDS ORDERED: BACITRACIN 28.4 GM OINTMENT TP PRN (07:45)
[2019-09-15] MEDS ORDERED: ACETAMINOPHEN 325 MG TABLET PO PRN (07:45)
[2019-09-15] MEDS ORDERED: IBUPROFEN 600 MG TABLET PO PRN (07:45)
[2019-09-15] MEDS ORDERED: OMEPRAZOLE 20 MG CAPSULE PO PRN (07:45)
[2019-09-15] MEDS ORDERED: PETROLATUM,WHITE 28 GM JELLY TP PRN (07:45)
[2019-09-15] MEDS ORDERED: ONDANSETRON HCL 4 MG TABLET PO PRN (07:45)
[2019-09-15] MEDS ORDERED: BENZOCAINE/MENTHOL LOZENGE MM PRN (07:45)
[2019-09-15] MEDS ORDERED: MAGNESIUM HYDROXIDE SUSPENSION 30 ML UDCUP PO PRN (07:45)
[2019-09-15] MEDS ORDERED: MAG HYDROX/AL HYDROX/SIMETH ES 30 ML SUSPENSION UDCUP PO PRN (07:45)
[2019-09-15] MEDS ORDERED: LOPERAMIDE HCL 2 MG CAPSULE PO PRN (07:45)
[2019-09-15] MEDS: RisperiDONE 3 MG TABLET PO SCH ×2 (09:08→16:28)
[2019-09-15] MEDS: LORazepam 2 MG TABLET PO PRN (09:08)
[2019-09-15] MEDS: BENZTROPINE MESYLATE 1 MG TABLET PO SCH ×2 (09:08→16:28)
[2019-09-15 14:04] VITALS: BP 127/68
[2019-09-16 08:09] LABS: BASOPHILS % (AUTO) 0.3 % (0.0-2.0); EOSINOPHILS % (AUTO) 1.7 % (1.0-6.0); HEMATOCRIT 42.8 % (36-46); HEMOGLOBIN 14.3 g/dL (12.0-16.0); LYMPHOCYTES # (AUTO) 1.3 K/uL (1.0-4.8); MEAN CORPUSCULAR HEMOGLOBIN 29.7 pg (26.0-34.0); MEAN CORPUSCULAR HGB CONC 33.3 G/dL (31.0-37.0); MEAN CORPUSCULAR VOLUME 89 fL (80-100); MONOCYTES # (AUTO) 0.4 K/uL (0.1-1.0); MONOCYTES % (AUTO) 7.5 % (2.0-9.0); NEUTROPHILS # (AUTO) 3.2 K/uL (1.8-7.7); NEUTROPHILS % (AUTO) 64.5 % (40.0-70.0); PLATELET COUNT (AUTO) 175 K/uL (150-450); RED CELL DISTRIBUTION WIDTH 13.9 % (11.5-14.5)
[2019-09-16 08:31] VITALS: BP 125/83
[2019-09-16 08:49] LABS: ALANINE AMINOTRANSFERASE 16 U/L (12-78); ALKALINE PHOSPHATASE 58 U/L (46-116); ANION GAP 14 mmol/L (8-16); ASPARTATE AMINOTRANSFERASE 20 U/L (15-37); BILIRUBIN,TOTAL 0.7 mg/dL (0.1-1.0); CARBON DIOXIDE 24 mmol/L (22-29); CHLORIDE 103 mmol/L (98-107); CREATININE 0.65 mg/dL (0.60-1.30); GLOMERULAR FILTR. RATE CALC > 60 mL/min (>60); GLUCOSE,RANDOM 66 mg/dL (70-110); HCG,QUANTITATIVE < 1 mIU/mL (0-6); POTASSIUM 3.9 mmol/L (3.5-5.1); SODIUM SERUM 141 mmol/L (136-145); TOTAL PROTEIN, SERUM 7.3 g/dL (6.4-8.2); UREA NITROGEN, BLOOD 18 mg/dL (7-18)
[2019-09-16] MEDS: LORazepam 2 MG TABLET PO PRN (08:58)
[2019-09-16] MEDS: RisperiDONE 3 MG TABLET PO SCH ×2 (08:58→17:37)
[2019-09-16] MEDS: BENZTROPINE MESYLATE 1 MG TABLET PO SCH ×2 (08:58→17:37)
[2019-09-16 16:11] VITALS: BP 143/77
[2019-09-17 05:35] VITALS: BP 131/87
[2019-09-17 08:46] VITALS: BP 143/77
[2019-09-17] MEDS: RisperiDONE 3 MG TABLET PO SCH ×2 (08:46→16:46)
[2019-09-17] MEDS: BENZTROPINE MESYLATE 1 MG TABLET PO SCH ×2 (08:46→16:46)
[2019-09-17] MEDS: LORazepam 2 MG TABLET PO PRN (08:46)
[2019-09-17 16:34] VITALS: BP 122/74
[2019-09-18 05:51] VITALS: BP 131/76
[2019-09-18] MEDS: BENZTROPINE MESYLATE 1 MG TABLET PO SCH ×2 (08:40→17:08)
[2019-09-18] MEDS: LORazepam 2 MG TABLET PO PRN ×2 (08:40→16:51)
[2019-09-18] MEDS: RisperiDONE 3 MG TABLET PO SCH ×2 (08:40→17:08)
[2019-09-18 10:01] VITALS: BP 121/80
[2019-09-18 16:00] VITALS: BP 114/76
[2019-09-19 05:47] VITALS: BP 132/71
[2019-09-19] MEDS: RisperiDONE 3 MG TABLET PO SCH ×2 (08:29→16:26)
[2019-09-19] MEDS: LORazepam 2 MG TABLET PO PRN ×2 (08:30→16:26)
[2019-09-19] MEDS: BENZTROPINE MESYLATE 1 MG TABLET PO SCH ×2 (08:30→16:26)
[2019-09-19 16:48] VITALS: BP 128/74
[2019-09-20] MEDS: BENZTROPINE MESYLATE 1 MG TABLET PO SCH (08:09)
[2019-09-20] MEDS: RisperiDONE 3 MG TABLET PO SCH (08:09)
[2019-09-20] MEDS: LORazepam 2 MG TABLET PO PRN (08:09)
== END 2019-09-20 13:24 | disposition home or self-care (01) | DRG 750 ==
LOC: B3A 11:44
PROVIDERS: ADMIT Psychiatry & Neurology Psychiatry; ATTEND Psychiatry & Neurology Psychiatry
DX: F25.0 Schizoaffective disorder, bipolar type (principal); F15.20 Other stimulant dependence, uncomplicated; Z59.0 Homelessness; E55.9 Vitamin D deficiency, unspecified; E66.9 Obesity, unspecified; F41.9 Anxiety disorder, unspecified; G47.00 Insomnia, unspecified; K21.9 Gastro-esophageal reflux disease without esophagitis; Z72.0 Tobacco use; Z88.8 Allergy status to other drugs, medicaments and biological substances; Z79.899 Other long term (current) drug therapy
CPT/HCPCS: J1200; J1630; J2060

== ENCOUNTER 2019-09-26 13:13 | Inpatient (IN) | payer MEDICAID ==
[~2019-09-26] VITALS: Ht 170.2 cm; Wt 79.9 kg
[2019-09-26] MEDS ORDERED: HALOPERIDOL 5 MG TABLET PO PRN (14:15)
[2019-09-26] MEDS ORDERED: ZOLPIDEM TARTRATE 10 MG TABLET PO PRN (14:15)
[2019-09-26 14:25] VITALS: BP 128/66
[2019-09-26] MEDS ORDERED: ALBUTEROL SULFATE HFA 90 MCG/PUFF 8 GM INHALER IH PRN (15:45)
[2019-09-26] MEDS ORDERED: BACITRACIN 28.4 GM OINTMENT TP PRN (15:45)
[2019-09-26] MEDS ORDERED: OMEPRAZOLE 20 MG CAPSULE PO PRN (15:45)
[2019-09-26] MEDS ORDERED: LOPERAMIDE HCL 2 MG CAPSULE PO PRN ×2 (15:45→20:45)
[2019-09-26] MEDS ORDERED: ACETAMINOPHEN 325 MG TABLET PO PRN ×2 (15:45→20:45)
[2019-09-26] MEDS ORDERED: MAG HYDROX/AL HYDROX/SIMETH ES 30 ML SUSPENSION UDCUP PO PRN ×2 (15:45→20:45)
[2019-09-26] MEDS ORDERED: BENZOCAINE/MENTHOL LOZENGE MM PRN (15:45)
[2019-09-26] MEDS ORDERED: PETROLATUM,WHITE 28 GM JELLY TP PRN ×2 (15:45→20:45)
[2019-09-26] MEDS ORDERED: ONDANSETRON HCL 4 MG TABLET PO PRN ×2 (15:45→20:45)
[2019-09-26] MEDS ORDERED: IBUPROFEN 600 MG TABLET PO PRN (15:45)
[2019-09-26 16:36] VITALS: BP 130/84
[2019-09-26] MEDS: LORazepam 2 MG TABLET PO PRN (20:03)
[2019-09-26] MEDS ORDERED: MAGNESIUM HYDROXIDE SUSPENSION 30 ML UDCUP PO PRN (20:45)
[2019-09-26] MEDS ORDERED: NICOTINE 14 MG/24 HOUR PATCH TD PRN (20:45)
[2019-09-26] MEDS ORDERED: IBUPROFEN 400 MG TABLET PO PRN (20:45)
[2019-09-26] MEDS ORDERED: CloNIDine HCL 0.1 MG TABLET PO PRN (20:45)
[2019-09-26] MEDS ORDERED: DOCUSATE SODIUM 100 MG CAPSULE PO PRN (20:45)
[2019-09-26] MEDS ORDERED: GuaiFENesin/D-METHORPHAN [SUGAR-FREE] 200-20MG/10 ML SYRUP UDCUP PO PRN (20:45)
[2019-09-27 06:54] LABS: BASOPHILS % (AUTO) 0.6 % (0.0-2.0); EOSINOPHILS % (AUTO) 3.1 % (1.0-6.0); HEMATOCRIT 39.9 % (36-46); HEMOGLOBIN 13.9 g/dL (12.0-16.0); LYMPHOCYTES % (AUTO) 41.8 % (22.0-44.0); MEAN CORPUSCULAR HEMOGLOBIN 30.7 pg (26.0-34.0); MEAN CORPUSCULAR HGB CONC 34.8 G/dL (31.0-37.0); MEAN CORPUSCULAR VOLUME 88 fL (80-100); MONOCYTES # (AUTO) 0.4 K/uL (0.1-1.0); NEUTROPHILS # (AUTO) 2.2 K/uL (1.8-7.7); NEUTROPHILS % (AUTO) 46.5 % (40.0-70.0); PLATELET COUNT (AUTO) 191 K/uL (150-450); RED BLOOD CELL COUNT(AUTO) 4.53 MIL/uL (4.00-5.20); RED CELL DISTRIBUTION WIDTH 14.2 % (11.5-14.5)
[2019-09-27 07:44] LABS: ALANINE AMINOTRANSFERASE 17 U/L (12-78); ALKALINE PHOSPHATASE 47 U/L (46-116); ANION GAP 8 mmol/L (8-16); ASPARTATE AMINOTRANSFERASE 13 U/L (15-37); BILIRUBIN,TOTAL 0.4 mg/dL (0.1-1.0); CALCIUM, TOTAL 8.7 mg/dL (8.8-10.5); CARBON DIOXIDE 28 mmol/L (22-29); CHLORIDE 107 mmol/L (98-107); CHOL/HDL RATIO 2.5 (3.9-5.7); CHOLESTEROL 131 mg/dL (131-200); CREATININE 0.69 mg/dL (0.60-1.30); FREE T4 (FREE THYROXINE) 0.92 ng/dL (0.76-1.46); GLOMERULAR FILTR. RATE CALC > 60 mL/min (>60); GLUCOSE,RANDOM 82 mg/dL (70-110); HCG,QUANTITATIVE < 1 mIU/mL (0-6); HDL CHOLESTEROL 52 mg/dL (40-60); LDL CHOL (CALC.) 67 mg/dL (0-130); SODIUM SERUM 143 mmol/L (136-145); THYROID STIMULATING HORMONE 0.89 uIU/mL (0.36-3.74); TOTAL PROTEIN, SERUM 6.1 g/dL (6.4-8.2); TRIGLYCERIDES 61 mg/dL (15-150); UREA NITROGEN, BLOOD 8 mg/dL (7-18)
[2019-09-27 07:53] LABS: ALBUMIN 3.4 g/dL (3.4-5.0)
[2019-09-27 08:10] LABS: APPEARANCE,URINE CLEAR (CLEAR); BILIRUBIN,URINE NEGATIVE (NEGATIVE); GLUCOSE, URINE (UA) NEGATIVE (NEGATIVE); KETONES,URINE TRACE mg/dL (NEGATIVE); LEUKOCYTE ESTERASE ,URINE NEGATIVE (NEGATIVE); NITRATE,URINE NEGATIVE (NEGATIVE); OCCULT BLOOD,URINE NEGATIVE (NEGATIVE); PH,URINE 6.5 (5.0-8.0); PROTEIN,URINE NEGATIVE (NEGATIVE)
[2019-09-27 08:14] LABS: AMPHET/METH SCREEN,URINE NEGATIVE (NEGATIVE); BARBITURATE SCREEN, URINE NEGATIVE (NEGATIVE); BENZODIAZEPINES SCREEN,URINE NEGATIVE (NEGATIVE); CANNABINOID SCREEN,URINE NEGATIVE (NEGATIVE); COCAINE SCREEN,URINE NEGATIVE (NEGATIVE); METHADONE SCREEN, URINE NEGATIVE (NEGATIVE); OPIATE SCREEN,URINE NEGATIVE (NEGATIVE)
[2019-09-27 08:20] LABS: PHENCYCLIDINE SCREEN,URINE NEGATIVE (NEGATIVE)
[2019-09-27 10:55] VITALS: BP 124/76
[2019-09-27] MEDS: LORazepam 2 MG TABLET PO PRN (16:52)
[2019-09-27 18:05] VITALS: BP 116/75
[2019-09-28] VITALS: BP 119/67
[2019-09-28 08:22] VITALS: BP 118/76
[2019-09-28] MEDS: RisperiDONE 3 MG TABLET PO SCH ×2 (08:54→16:22)
[2019-09-28] MEDS: BENZTROPINE MESYLATE 1 MG TABLET PO SCH ×2 (08:54→16:22)
[2019-09-28] MEDS: LORazepam 2 MG TABLET PO PRN ×2 (08:54→16:26)
[2019-09-28 16:09] VITALS: BP 114/56
[2019-09-29 02:18] VITALS: BP 110/74
[2019-09-29] MEDS: LORazepam 2 MG TABLET PO PRN ×2 (08:23→16:31)
[2019-09-29] MEDS: RisperiDONE 3 MG TABLET PO SCH ×2 (08:23→16:31)
[2019-09-29] MEDS: BENZTROPINE MESYLATE 1 MG TABLET PO SCH ×2 (08:23→16:31)
[2019-09-29 16:19] VITALS: BP 100/60
[2019-09-30 04:50] VITALS: BP 100/63
[2019-09-30 08:23] VITALS: BP 100/65
[2019-09-30] MEDS: LORazepam 2 MG TABLET PO PRN (08:23)
[2019-09-30] MEDS: RisperiDONE 3 MG TABLET PO SCH (08:24)
[2019-09-30] MEDS: BENZTROPINE MESYLATE 1 MG TABLET PO SCH (08:24)
== END 2019-09-30 12:00 | disposition home or self-care (01) | DRG 750 ==
LOC: B3A 14:36
PROVIDERS: ADMIT Psychiatry & Neurology Psychiatry; ATTEND Psychiatry & Neurology Psychiatry
PROC: HZ31ZZZ Individual Counseling for Substance Abuse Treatment, Behavioral (ICD-10-PCS; principal; 2019-09-27)
DX: F25.9 Schizoaffective disorder, unspecified (principal); F17.200 Nicotine dependence, unspecified, uncomplicated; F19.10 Other psychoactive substance abuse, uncomplicated; Z71.51 Drug abuse counseling and surveillance of drug abuser; Z71.6 Tobacco abuse counseling
CPT/HCPCS: 80307; 83036; 84439; 84443; 87081

== ENCOUNTER 2019-10-08 18:16 | Inpatient (IN) | payer MEDICAID ==
[2019-10-08] MEDS ORDERED: HALOPERIDOL 5 MG TABLET PO PRN (19:15)
[2019-10-08] MEDS ORDERED: ZOLPIDEM TARTRATE 10 MG TABLET PO PRN (19:15)
[2019-10-08 21:19] VITALS: BP 101/53
[2019-10-09 00:25] VITALS: BP 102/68
[2019-10-09] MEDS ORDERED: MAGNESIUM HYDROXIDE SUSPENSION 30 ML UDCUP PO PRN (09:15)
[2019-10-09] MEDS ORDERED: CloNIDine HCL 0.1 MG TABLET PO PRN (09:15)
[2019-10-09] MEDS ORDERED: LOPERAMIDE HCL 2 MG CAPSULE PO PRN (09:15)
[2019-10-09] MEDS ORDERED: NICOTINE 14 MG/24 HOUR PATCH TD PRN (09:15)
[2019-10-09] MEDS ORDERED: ONDANSETRON HCL 4 MG TABLET PO PRN (09:15)
[2019-10-09] MEDS ORDERED: ACETAMINOPHEN 325 MG TABLET PO PRN (09:15)
[2019-10-09] MEDS ORDERED: DOCUSATE SODIUM 100 MG CAPSULE PO PRN (09:15)
[2019-10-09] MEDS ORDERED: PETROLATUM,WHITE 28 GM JELLY TP PRN (09:15)
[2019-10-09] MEDS ORDERED: GuaiFENesin/D-METHORPHAN [SUGAR-FREE] 200-20MG/10 ML SYRUP UDCUP PO PRN (09:15)
[2019-10-09] MEDS ORDERED: MAG HYDROX/AL HYDROX/SIMETH ES 30 ML SUSPENSION UDCUP PO PRN (09:15)
[2019-10-09] MEDS ORDERED: IBUPROFEN 400 MG TABLET PO PRN (09:15)
[2019-10-09 11:04] VITALS: BP 128/78
[2019-10-09 16:00] VITALS: BP 138/92
[2019-10-09] MEDS: RisperiDONE 3 MG TABLET PO SCH (16:05)
[2019-10-09] MEDS: BENZTROPINE MESYLATE 1 MG TABLET PO SCH (16:05)
[2019-10-10 00:37] VITALS: BP 132/87
[2019-10-10 08:21] VITALS: BP 126/60
[2019-10-10] MEDS: BENZTROPINE MESYLATE 1 MG TABLET PO SCH ×2 (09:28→17:10)
[2019-10-10] MEDS: RisperiDONE 3 MG TABLET PO SCH ×2 (09:28→17:10)
[2019-10-10 16:22] VITALS: BP 118/69
[2019-10-11 00:15] VITALS: BP 114/72
[2019-10-11 08:34] VITALS: BP 113/71
[2019-10-11] MEDS: RisperiDONE 3 MG TABLET PO SCH ×2 (08:43→16:17)
[2019-10-11] MEDS: BENZTROPINE MESYLATE 1 MG TABLET PO SCH ×2 (08:43→16:17)
[2019-10-11 16:27] VITALS: BP 125/72
[2019-10-12 06:13] VITALS: BP 115/70
[2019-10-12] MEDS: BENZTROPINE MESYLATE 1 MG TABLET PO SCH ×2 (08:04→16:05)
[2019-10-12] MEDS: RisperiDONE 3 MG TABLET PO SCH ×2 (08:04→16:05)
[2019-10-12 16:37] VITALS: BP 117/78
[2019-10-13 08:23] VITALS: BP 112/68
[2019-10-13] MEDS: BENZTROPINE MESYLATE 1 MG TABLET PO SCH ×2 (09:02→16:35)
[2019-10-13] MEDS: RisperiDONE 3 MG TABLET PO SCH ×2 (09:02→16:35)
[2019-10-13 18:00] VITALS: BP 117/83
[2019-10-14] MEDS: BENZTROPINE MESYLATE 1 MG TABLET PO SCH ×2 (09:41→16:01)
[2019-10-14] MEDS: RisperiDONE 3 MG TABLET PO SCH ×2 (09:41→16:01)
[2019-10-14 17:00] VITALS: BP 119/85
[2019-10-15 00:56] VITALS: BP 127/68
[2019-10-15] MEDS: BENZTROPINE MESYLATE 1 MG TABLET PO SCH ×2 (08:35→16:22)
[2019-10-15] MEDS: RisperiDONE 3 MG TABLET PO SCH ×2 (08:35→16:22)
[2019-10-16] MEDS: BENZTROPINE MESYLATE 1 MG TABLET PO SCH ×2 (08:06→16:40)
[2019-10-16] MEDS: RisperiDONE 3 MG TABLET PO SCH ×2 (08:06→16:40)
[2019-10-16 09:12] VITALS: BP 105/65
[2019-10-16 16:29] VITALS: BP 111/78
[2019-10-16] MEDS: LORazepam 2 MG TABLET PO PRN (19:39)
[2019-10-17 04:16] VITALS: BP 110/68
[2019-10-17 08:30] VITALS: BP 113/71
[2019-10-17] MEDS: RisperiDONE 3 MG TABLET PO SCH ×2 (09:37→16:47)
[2019-10-17] MEDS: BENZTROPINE MESYLATE 1 MG TABLET PO SCH ×2 (09:37→16:49)
[2019-10-17 16:12] VITALS: BP 112/75
[2019-10-17] MEDS: LORazepam 2 MG TABLET PO PRN (19:54)
[2019-10-18] MEDS: RisperiDONE 3 MG TABLET PO SCH (08:45)
[2019-10-18] MEDS: BENZTROPINE MESYLATE 1 MG TABLET PO SCH (08:45)
== END 2019-10-18 13:15 | disposition home or self-care (01) | DRG 885 ==
LOC: B2S 21:14
PROVIDERS: ADMIT Psychiatry & Neurology Child & Adolescent Psychiatry; ATTEND Psychiatry & Neurology Child & Adolescent Psychiatry
DX: F20.0 Paranoid schizophrenia (principal); G44.209 Tension-type headache, unspecified, not intractable; Z59.0 Homelessness; Z87.891 Personal history of nicotine dependence
CPT/HCPCS: 87081; Z7610

== ENCOUNTER 2019-12-07 01:18 | Inpatient (IN) | payer MEDICAID, OTHER ==
[~2019-12-07] VITALS: Ht 172.7 cm; Wt 72.8 kg
[2019-12-07] MEDS ORDERED: HALOPERIDOL LACTATE 5 MG/ML VIAL ONE (01:24)
[2019-12-07] MEDS ORDERED: LORazepam 2 MG/ML VIAL ONE (01:24)
[2019-12-07] MEDS ORDERED: DiphenhydrAMINE HCL 50 MG/ML VIAL ONE (01:24)
[2019-12-07] MEDS ORDERED: DiphenhydrAMINE HCL 50 MG/ML VIAL IM ONE (01:30)
[2019-12-07] MEDS ORDERED: LORazepam 2 MG/ML VIAL IM ONE (01:30)
[2019-12-07] MEDS ORDERED: HALOPERIDOL LACTATE 5 MG/ML VIAL IM ONE (01:30)
[2019-12-07 03:14] LABS: BASOPHILS % (AUTO) 0.6 % (0.0-2.0); EOSINOPHILS % (AUTO) 5.8 % (1.0-6.0); HEMATOCRIT 40.3 % (36-46); HEMOGLOBIN 13.8 g/dL (12.0-16.0); LYMPHOCYTES # (AUTO) 2.8 K/uL (1.0-4.8); LYMPHOCYTES % (AUTO) 43.2 % (22.0-44.0); MEAN CORPUSCULAR HEMOGLOBIN 30.8 pg (26.0-34.0); MEAN CORPUSCULAR HGB CONC 34.3 G/dL (31.0-37.0); MEAN CORPUSCULAR VOLUME 90 fL (80-100); MONOCYTES # (AUTO) 0.5 K/uL (0.1-1.0); MONOCYTES % (AUTO) 7.9 % (2.0-9.0); NEUTROPHILS # (AUTO) 2.7 K/uL (1.8-7.7); NEUTROPHILS % (AUTO) 42.5 % (40.0-70.0); PLATELET COUNT (AUTO) 204 K/uL (150-450); RED BLOOD CELL COUNT(AUTO) 4.49 MIL/uL (4.00-5.20)
[2019-12-07] MEDS ORDERED: ZOLPIDEM TARTRATE 10 MG TABLET PO PRN (03:15)
[2019-12-07 03:25] LABS: ANION GAP 3 mmol/L (8-16); CALCIUM, TOTAL 8.9 mg/dL (8.8-10.5); CARBON DIOXIDE 33 mmol/L (22-29); CHLORIDE 100 mmol/L (98-107); CREATININE 0.97 mg/dL (0.60-1.30); GLOMERULAR FILTR. RATE CALC > 60 mL/min (>60); GLUCOSE,RANDOM 95 mg/dL (70-110); POTASSIUM 3.6 mmol/L (3.5-5.1); SODIUM SERUM 136 mmol/L (136-145); UREA NITROGEN, BLOOD 15 mg/dL (7-18)
[2019-12-07 03:38] LABS: ALANINE AMINOTRANSFERASE 19 U/L (12-78); ALBUMIN 3.8 g/dL (3.4-5.0); ALKALINE PHOSPHATASE 55 U/L (46-116); ASPARTATE AMINOTRANSFERASE 19 U/L (15-37); BILIRUBIN,TOTAL 0.3 mg/dL (0.1-1.0); HCG,QUANTITATIVE 2 mIU/mL (0-6); TOTAL PROTEIN, SERUM 7.1 g/dL (6.4-8.2)
[2019-12-07 06:51] VITALS: BP 127/92
[2019-12-07 08:29] VITALS: BP 120/62
[2019-12-07] MEDS ORDERED: NICOTINE 14 MG/24 HOUR PATCH TD PRN (08:30)
[2019-12-07] MEDS ORDERED: GuaiFENesin/D-METHORPHAN [SUGAR-FREE] 200-20MG/10 ML SYRUP UDCUP PO PRN (08:30)
[2019-12-07] MEDS ORDERED: IBUPROFEN 400 MG TABLET PO PRN (08:30)
[2019-12-07] MEDS ORDERED: MAGNESIUM HYDROXIDE SUSPENSION 30 ML UDCUP PO PRN (08:30)
[2019-12-07] MEDS ORDERED: DOCUSATE SODIUM 100 MG CAPSULE PO PRN (08:30)
[2019-12-07] MEDS ORDERED: MAG HYDROX/AL HYDROX/SIMETH ES 30 ML SUSPENSION UDCUP PO PRN (08:30)
[2019-12-07] MEDS ORDERED: ACETAMINOPHEN 325 MG TABLET PO PRN (08:30)
[2019-12-07] MEDS ORDERED: ONDANSETRON HCL 4 MG TABLET PO PRN (08:30)
[2019-12-07] MEDS ORDERED: CloNIDine HCL 0.1 MG TABLET PO PRN (08:30)
[2019-12-07] MEDS ORDERED: LOPERAMIDE HCL 2 MG CAPSULE PO PRN (08:30)
[2019-12-07] MEDS ORDERED: PETROLATUM,WHITE 28 GM JELLY TP PRN (08:30)
[2019-12-07] MEDS: BENZTROPINE MESYLATE 1 MG TABLET PO SCH ×2 (14:06→20:28)
[2019-12-07] MEDS: RisperiDONE 3 MG TABLET PO SCH (20:28)
[2019-12-08 08:22] VITALS: BP 106/64
[2019-12-08] MEDS: LORazepam 2 MG TABLET PO PRN (09:08)
[2019-12-08] MEDS: BENZTROPINE MESYLATE 1 MG TABLET PO SCH ×2 (09:08→20:25)
[2019-12-08] MEDS: RisperiDONE 3 MG TABLET PO SCH ×2 (09:09→20:25)
[2019-12-08 16:51] VITALS: BP 147/85
[2019-12-09 06:25] VITALS: BP 128/66
[2019-12-09] MEDS: BENZTROPINE MESYLATE 1 MG TABLET PO SCH ×2 (08:44→20:27)
[2019-12-09] MEDS: HALOPERIDOL 5 MG TABLET PO PRN (08:45)
[2019-12-09] MEDS: RisperiDONE 3 MG TABLET PO SCH ×2 (08:45→20:27)
[2019-12-09] MEDS: LORazepam 2 MG TABLET PO PRN ×2 (08:45→16:24)
[2019-12-09 09:52] LABS: CHOL/HDL RATIO 2.8 (3.9-5.7)
[2019-12-09 16:13] VITALS: BP 117/84
[2019-12-10 00:32] VITALS: BP 110/78
[2019-12-10] MEDS: RisperiDONE 3 MG TABLET PO SCH ×2 (09:09→20:27)
[2019-12-10] MEDS: BENZTROPINE MESYLATE 1 MG TABLET PO SCH ×2 (09:09→20:27)
[2019-12-10 09:56] VITALS: BP 135/75
[2019-12-10 16:51] VITALS: BP 132/82
[2019-12-11 04:06] VITALS: BP 121/75
[2019-12-11 08:20] VITALS: BP 116/78
[2019-12-11] MEDS: RisperiDONE 3 MG TABLET PO SCH ×2 (09:26→20:13)
[2019-12-11] MEDS: BENZTROPINE MESYLATE 1 MG TABLET PO SCH ×2 (09:26→20:13)
[2019-12-11 16:10] VITALS: BP 139/66
[2019-12-12 06:17] VITALS: BP 127/73
[2019-12-12 08:31] VITALS: BP 109/64
[2019-12-12] MEDS: RisperiDONE 3 MG TABLET PO SCH (09:00)
[2019-12-12] MEDS: BENZTROPINE MESYLATE 1 MG TABLET PO SCH (09:00)
[2019-12-12] MEDS: LORazepam 2 MG TABLET PO PRN (09:30)
[2019-12-12] MEDS: HALOPERIDOL 5 MG TABLET PO PRN (09:30)
[2019-12-12 16:18] VITALS: BP 120/72
[2019-12-12] MEDS: QUEtiapine FUMARATE 200 MG TABLET PO SCH (20:59)
[2019-12-13 01:12] VITALS: BP 110/77
[2019-12-13 08:17] VITALS: BP 116/72
[2019-12-13] MEDS: LORazepam 2 MG TABLET PO PRN (09:50)
[2019-12-13 16:21] VITALS: BP 117/63
[2019-12-13] MEDS: QUEtiapine FUMARATE 200 MG TABLET PO SCH (20:37)
[2019-12-14 04:42] VITALS: BP 109/66
[2019-12-14 08:25] VITALS: BP 113/76
[2019-12-14 16:22] VITALS: BP 138/83
[2019-12-14] MEDS: QUEtiapine FUMARATE 200 MG TABLET PO SCH (20:21)
[2019-12-15 01:31] VITALS: BP_SYST 123; BP_DIAS 123; BP_DIAS 79
[2019-12-15 08:17] VITALS: BP 122/68
[2019-12-15 16:15] VITALS: BP 130/73
[2019-12-15] MEDS: QUEtiapine FUMARATE 200 MG TABLET PO SCH (20:23)
[2019-12-16] VITALS: BP 109/61
[2019-12-16 08:18] VITALS: BP 123/81
[2019-12-16] MEDS ORDERED: QUET200T PO (12:54)
== END 2019-12-16 14:00 | disposition home or self-care (01) | DRG 750 ==
LOC: EMS 01:18 → B3A 03:07
DX: F25.0 Schizoaffective disorder, bipolar type (principal); F10.10 Alcohol abuse, uncomplicated; E55.9 Vitamin D deficiency, unspecified; D64.9 Anemia, unspecified; I10 Essential (primary) hypertension; J44.9 Chronic obstructive pulmonary disease, unspecified; K21.9 Gastro-esophageal reflux disease without esophagitis; Z79.899 Other long term (current) drug therapy
CPT/HCPCS: 83036; 99291; G0480; J1200; J1630; J2060

== ENCOUNTER 2019-12-25 20:18 | Inpatient (IN) | payer MEDICAID, OTHER ==
[~2019-12-25] VITALS: Ht 170.2 cm; Wt 74.5 kg
[~2019-12-25 20:18] MED LIST changes: -BENZ1TAB10 PO; +QUET200T PO; -RISP3TAB14 PO
[2019-12-26 00:31] LABS: BASOPHILS % (AUTO) 0.6 % (0.0-2.0); HEMOGLOBIN 13.4 g/dL (12.0-16.0); LYMPHOCYTES # (AUTO) 2.1 K/uL (1.0-4.8); MEAN CORPUSCULAR HEMOGLOBIN 30.6 pg (26.0-34.0); MEAN CORPUSCULAR HGB CONC 34.3 G/dL (31.0-37.0); MEAN CORPUSCULAR VOLUME 89 fL (80-100); MONOCYTES # (AUTO) 0.6 K/uL (0.1-1.0); MONOCYTES % (AUTO) 9.4 % (2.0-9.0); NEUTROPHILS # (AUTO) 3.7 K/uL (1.8-7.7); PLATELET COUNT (AUTO) 225 K/uL (150-450); RED BLOOD CELL COUNT(AUTO) 4.37 MIL/uL (4.00-5.20); RED CELL DISTRIBUTION WIDTH 13.7 % (11.5-14.5)
[2019-12-26 00:33] LABS: APPEARANCE,URINE CLEAR (CLEAR); GLUCOSE, URINE (UA) NEGATIVE (NEGATIVE); KETONES,URINE NEGATIVE (NEGATIVE); LEUKOCYTE ESTERASE ,URINE NEGATIVE (NEGATIVE); NITRATE,URINE NEGATIVE (NEGATIVE); OCCULT BLOOD,URINE NEGATIVE (NEGATIVE); PH,URINE 5.5 (5.0-8.0); PROTEIN,URINE NEGATIVE (NEGATIVE)
[2019-12-26 00:35] LABS: BILIRUBIN,URINE PRELIM. POSITIVE (NEGATIVE)
[2019-12-26 00:39] LABS: AMPHET/METH SCREEN,URINE NEGATIVE (NEGATIVE); BARBITURATE SCREEN, URINE NEGATIVE (NEGATIVE); BENZODIAZEPINES SCREEN,URINE NEGATIVE (NEGATIVE); CANNABINOID SCREEN,URINE NEGATIVE (NEGATIVE); COCAINE SCREEN,URINE NEGATIVE (NEGATIVE); METHADONE SCREEN, URINE NEGATIVE (NEGATIVE); OPIATE SCREEN,URINE NEGATIVE (NEGATIVE)
[2019-12-26 00:41] LABS: BACTERIA,URINE None Seen /HPF (None Seen); MUCUS,URINE Moderate LPF (None Seen); RBC,URINE None Seen /HPF (0-2); SQUAMOUS EPITHELIAL CELL,UR Rare /LPF (None Seen); WBC,URINE 0-2 /HPF (0-5)
[2019-12-26 00:42] LABS: PHENCYCLIDINE SCREEN,URINE NEGATIVE (NEGATIVE)
[2019-12-26 00:43] LABS: ANION GAP 4 mmol/L (8-16); CALCIUM, TOTAL 8.9 mg/dL (8.8-10.5); CARBON DIOXIDE 28 mmol/L (22-29); CHLORIDE 105 mmol/L (98-107); CREATININE 0.77 mg/dL (0.60-1.30); GLOMERULAR FILTR. RATE CALC > 60 mL/min (>60); GLUCOSE,RANDOM 91 mg/dL (70-110); POTASSIUM 3.5 mmol/L (3.5-5.1); SODIUM SERUM 137 mmol/L (136-145); UREA NITROGEN, BLOOD 18 mg/dL (7-18)
[2019-12-26 00:55] LABS: ALANINE AMINOTRANSFERASE 68 U/L (12-78); ALBUMIN 3.9 g/dL (3.4-5.0); ALKALINE PHOSPHATASE 74 U/L (46-116); ASPARTATE AMINOTRANSFERASE 24 U/L (15-37); BILIRUBIN,TOTAL 0.5 mg/dL (0.1-1.0); HCG,QUANTITATIVE 2 mIU/mL (0-6); TOTAL PROTEIN, SERUM 7.3 g/dL (6.4-8.2)
[2019-12-26] MEDS ORDERED: ZOLPIDEM TARTRATE 10 MG TABLET PO PRN (04:30)
[2019-12-26] MEDS ORDERED: IBUPROFEN 600 MG TABLET PO PRN (08:45)
[2019-12-26] MEDS ORDERED: DOCUSATE SODIUM 100 MG CAPSULE PO PRN (08:45)
[2019-12-26] MEDS ORDERED: MAG HYDROX/AL HYDROX/SIMETH ES 30 ML SUSPENSION UDCUP PO PRN (08:45)
[2019-12-26] MEDS ORDERED: BENZOCAINE/MENTHOL LOZENGE PO PRN (08:45)
[2019-12-26] MEDS ORDERED: ACETAMINOPHEN 325 MG TABLET PO PRN (08:45)
[2019-12-26] MEDS ORDERED: LOPERAMIDE HCL 2 MG CAPSULE PO PRN (08:45)
[2019-12-26] MEDS ORDERED: PETROLATUM,WHITE 28 GM JELLY TP PRN (08:45)
[2019-12-26] MEDS ORDERED: MAGNESIUM HYDROXIDE SUSPENSION 30 ML UDCUP PO PRN (08:45)
[2019-12-26] MEDS ORDERED: ONDANSETRON HCL 4 MG TABLET PO PRN (08:45)
[2019-12-26] MEDS ORDERED: OMEPRAZOLE 20 MG CAPSULE PO PRN (08:45)
[2019-12-26] MEDS ORDERED: BACITRACIN 28 GM OINTMENT TP PRN (08:45)
[2019-12-26] MEDS ORDERED: CloNIDine HCL 0.1 MG TABLET PO PRN (08:45)
[2019-12-26 17:07] VITALS: BP 126/81
[2019-12-26] MEDS: LORazepam 2 MG TABLET PO PRN (17:18)
[2019-12-26] MEDS: HALOPERIDOL 5 MG TABLET PO PRN (17:18)
[2019-12-27 01:29] VITALS: BP 122/76
[2019-12-27] MEDS: LORazepam 2 MG TABLET PO PRN (16:40)
[2019-12-27 16:47] VITALS: BP 112/62
[2019-12-27] MEDS: QUEtiapine FUMARATE 200 MG TABLET PO SCH ×2 (20:33→21:23)
[2019-12-28 08:33] VITALS: BP 106/74
[2019-12-28] MEDS: LORazepam 2 MG TABLET PO PRN (13:49)
[2019-12-28] MEDS: QUEtiapine FUMARATE 200 MG TABLET PO SCH (20:40)
[2019-12-29 01:40] VITALS: BP 102/77
[2019-12-29 09:00] VITALS: BP 118/70
[2019-12-29] MEDS: LORazepam 2 MG TABLET PO PRN (09:34)
[2019-12-29 17:41] VITALS: BP 122/71
[2019-12-29] MEDS: QUEtiapine FUMARATE 200 MG TABLET PO SCH (20:22)
[2019-12-30 00:13] VITALS: BP 140/66
[2019-12-30 08:24] VITALS: BP 120/89
[2019-12-30] MEDS: LORazepam 2 MG TABLET PO PRN (08:37)
[2019-12-30] MEDS: HALOPERIDOL 5 MG TABLET PO PRN (08:49)
[2019-12-30 18:00] VITALS: BP 111/68
[2019-12-30] MEDS: QUEtiapine FUMARATE 200 MG TABLET PO SCH (21:09)
[2019-12-31 02:05] VITALS: BP 100/66
[2019-12-31 08:17] VITALS: BP 118/74
[2019-12-31] MEDS: LORazepam 2 MG TABLET PO PRN (10:02)
[2019-12-31 16:12] VITALS: BP 112/69
[2019-12-31] MEDS: QUEtiapine FUMARATE 200 MG TABLET PO SCH (21:19)
[2020-01-01 01:03] VITALS: BP 110/68
[2020-01-01 08:23] VITALS: BP 109/64
== END 2020-01-01 12:15 | disposition home or self-care (01) | DRG 750 ==
LOC: EDSTATUS 20:18 → EMS 22:05 → B3A 12-26 02:45
PROVIDERS: ADMIT Psychiatry & Neurology Psychiatry; ATTEND Psychiatry & Neurology Psychiatry
DX: F25.9 Schizoaffective disorder, unspecified (principal); I10 Essential (primary) hypertension; J44.9 Chronic obstructive pulmonary disease, unspecified; F17.200 Nicotine dependence, unspecified, uncomplicated; F19.10 Other psychoactive substance abuse, uncomplicated; K21.9 Gastro-esophageal reflux disease without esophagitis; R73.03 Prediabetes; G47.00 Insomnia, unspecified; F41.9 Anxiety disorder, unspecified; K59.00 Constipation, unspecified; Z59.0 Homelessness; Z88.8 Allergy status to other drugs, medicaments and biological substances; Z79.899 Other long term (current) drug therapy; Z03.818 Encounter for observation for suspected exposure to other biological agents ruled out
CPT/HCPCS: 87081; 87426; G0480

== ENCOUNTER 2020-01-02 14:16 | Inpatient (IN) | payer MEDICAID ==
[~2020-01-02] VITALS: Ht 170.2 cm; Wt 75.0 kg
[2020-01-02] MEDS ORDERED: ZOLPIDEM TARTRATE 10 MG TABLET PO PRN (14:30)
[2020-01-02] MEDS ORDERED: HALOPERIDOL 5 MG TABLET PO PRN (14:30)
[2020-01-03 01:08] VITALS: BP 140/92
[2020-01-03] MEDS ORDERED: LOPERAMIDE HCL 2 MG CAPSULE PO PRN (08:00)
[2020-01-03] MEDS ORDERED: PETROLATUM,WHITE 28 GM JELLY TP PRN (08:00)
[2020-01-03] MEDS ORDERED: BACITRACIN 28 GM OINTMENT TP PRN (08:00)
[2020-01-03] MEDS ORDERED: ACETAMINOPHEN 325 MG TABLET PO PRN (08:00)
[2020-01-03] MEDS ORDERED: BENZOCAINE/MENTHOL LOZENGE PO PRN (08:00)
[2020-01-03] MEDS ORDERED: ONDANSETRON HCL 4 MG TABLET PO PRN (08:00)
[2020-01-03] MEDS ORDERED: MAG HYDROX/AL HYDROX/SIMETH ES 30 ML SUSPENSION UDCUP PO PRN (08:00)
[2020-01-03] MEDS ORDERED: OMEPRAZOLE 20 MG CAPSULE PO PRN (08:00)
[2020-01-03] MEDS ORDERED: DOCUSATE SODIUM 100 MG CAPSULE PO PRN (08:00)
[2020-01-03] MEDS ORDERED: ALBUTEROL SULFATE HFA 90 MCG/PUFF 8 GM INHALER IH PRN (08:00)
[2020-01-03] MEDS ORDERED: MAGNESIUM HYDROXIDE SUSPENSION 30 ML UDCUP PO PRN (08:00)
[2020-01-03] MEDS ORDERED: IBUPROFEN 600 MG TABLET PO PRN (08:00)
[2020-01-03] MEDS ORDERED: CloNIDine HCL 0.1 MG TABLET PO PRN (08:00)
[2020-01-03 08:07] VITALS: BP 110/61
[2020-01-03 16:06] VITALS: BP 122/75
[2020-01-03] MEDS: QUEtiapine FUMARATE 200 MG TABLET PO SCH (20:21)
[2020-01-04 05:39] VITALS: BP 125/76
[2020-01-04] MEDS ORDERED: HALOPERIDOL LACTATE 5 MG/ML VIAL ONE (08:11)
[2020-01-04] MEDS ORDERED: LORazepam 2 MG/ML VIAL ONE (08:11)
[2020-01-04] MEDS ORDERED: DiphenhydrAMINE HCL 50 MG/ML VIAL ONE (08:12)
[2020-01-04 08:37] VITALS: BP 123/67
[2020-01-04] MEDS ORDERED: DiphenhydrAMINE HCL 50 MG/ML VIAL IM ONE (14:30)
[2020-01-04] MEDS ORDERED: LORazepam 2 MG/ML VIAL IM ONE (14:30)
[2020-01-04] MEDS ORDERED: HALOPERIDOL LACTATE 5 MG/ML VIAL IM ONE (14:30)
[2020-01-04 16:19] VITALS: BP 110/60
[2020-01-04] MEDS: QUEtiapine FUMARATE 200 MG TABLET PO SCH (20:14)
[2020-01-05 03:35] VITALS: BP 112/68
[2020-01-05 08:07] VITALS: BP 119/70
[2020-01-05 08:12] LABS: BASOPHILS % (AUTO) 0.3 % (0.0-2.0); EOSINOPHILS % (AUTO) 3.3 % (1.0-6.0); HEMATOCRIT 39.3 % (36-46); HEMOGLOBIN 13.4 g/dL (12.0-16.0); LYMPHOCYTES # (AUTO) 2.4 K/uL (1.0-4.8); LYMPHOCYTES % (AUTO) 43.2 % (22.0-44.0); MEAN CORPUSCULAR HEMOGLOBIN 30.7 pg (26.0-34.0); MEAN CORPUSCULAR HGB CONC 34.1 G/dL (31.0-37.0); MEAN CORPUSCULAR VOLUME 90 fL (80-100); MONOCYTES # (AUTO) 0.4 K/uL (0.1-1.0); MONOCYTES % (AUTO) 7.6 % (2.0-9.0); NEUTROPHILS # (AUTO) 2.5 K/uL (1.8-7.7); NEUTROPHILS % (AUTO) 45.6 % (40.0-70.0); PLATELET COUNT (AUTO) 195 K/uL (150-450); RED BLOOD CELL COUNT(AUTO) 4.35 MIL/uL (4.00-5.20); RED CELL DISTRIBUTION WIDTH 13.8 % (11.5-14.5)
[2020-01-05 08:33] LABS: HEMOGLOBIN A1C 5.4 % (3.8-5.6)
[2020-01-05 08:39] LABS: ALANINE AMINOTRANSFERASE 28 U/L (12-78); ALBUMIN 3.6 g/dL (3.4-5.0); ALKALINE PHOSPHATASE 61 U/L (46-116); ANION GAP 7 mmol/L (8-16); ASPARTATE AMINOTRANSFERASE 30 U/L (15-37); BILIRUBIN,TOTAL 0.4 mg/dL (0.1-1.0); CALCIUM, TOTAL 8.9 mg/dL (8.8-10.5); CARBON DIOXIDE 32 mmol/L (22-29); CHLORIDE 103 mmol/L (98-107); CREATININE 0.81 mg/dL (0.60-1.30); FREE T4 (FREE THYROXINE) 1.01 ng/dL (0.76-1.46); GLOMERULAR FILTR. RATE CALC > 60 mL/min (>60); GLUCOSE,RANDOM 62 mg/dL (70-110); HCG,QUANTITATIVE 2 mIU/mL (0-6); POTASSIUM 4.2 mmol/L (3.5-5.1); SODIUM SERUM 142 mmol/L (136-145); THYROID STIMULATING HORMONE 1.79 uIU/mL (0.36-3.74); TOTAL PROTEIN, SERUM 6.2 g/dL (6.4-8.2); UREA NITROGEN, BLOOD 19 mg/dL (7-18)
[2020-01-05] MEDS: LORazepam 2 MG TABLET PO PRN (09:27)
[2020-01-05 16:04] VITALS: BP 125/89
[2020-01-05] MEDS: QUEtiapine FUMARATE 200 MG TABLET PO SCH (20:24)
[2020-01-06 01:33] VITALS: BP 120/88
[2020-01-06 08:14] VITALS: BP 111/78
[2020-01-06] MEDS: LORazepam 2 MG TABLET PO PRN (09:49)
== END 2020-01-06 17:03 | disposition home or self-care (01) | DRG 750 ==
LOC: B3A 01-03 00:05
PROVIDERS: ADMIT Psychiatry & Neurology Psychiatry; ATTEND Psychiatry & Neurology Psychiatry
DX: F25.9 Schizoaffective disorder, unspecified (principal); E55.9 Vitamin D deficiency, unspecified; R51.9 Headache, unspecified; K21.9 Gastro-esophageal reflux disease without esophagitis; F41.9 Anxiety disorder, unspecified; G47.00 Insomnia, unspecified
CPT/HCPCS: 83036; 84439; 84443; J1200; J1630; J2060

== ENCOUNTER 2020-01-02 16:53 | Emergency (ER) | payer MEDICAID, OTHER ==
[~2020-01-02] VITALS: Ht 167.6 cm; Wt 70.5 kg
[2020-01-02 19:50] LABS: COVID AG,FIA SOURCE NASOPHARYNGEAL
[2020-01-02 23:15] VITALS: BP 135/83
== END 2020-01-02 23:15 | disposition home or self-care (01) ==
LOC: EMS 16:55
DX: F25.9 Schizoaffective disorder, unspecified (principal); Z20.828 Contact with and (suspected) exposure to other viral communicable diseases
CPT/HCPCS: 87426

== ENCOUNTER 2020-02-13 08:42 | Inpatient (IN) | payer MEDICAID ==
[~2020-02-13] VITALS: Ht 170.2 cm; Wt 86.2 kg
[2020-02-13] MEDS ORDERED: ZOLPIDEM TARTRATE 10 MG TABLET PO PRN (15:15)
[2020-02-13 17:51] VITALS: BP 146/81
[2020-02-13] MEDS: HALOPERIDOL 5 MG TABLET PO PRN (18:10)
[2020-02-13] MEDS: LORazepam 2 MG TABLET PO PRN (18:10)
[2020-02-13 19:05] VITALS: BP 138/78
[2020-02-14 08:05] VITALS: BP 139/88
[2020-02-14] MEDS ORDERED: MAGNESIUM HYDROXIDE SUSPENSION 30 ML UDCUP PO PRN (08:30)
[2020-02-14] MEDS ORDERED: BACITRACIN 28 GM OINTMENT TP PRN (08:30)
[2020-02-14] MEDS ORDERED: CloNIDine HCL 0.1 MG TABLET PO PRN (08:30)
[2020-02-14] MEDS ORDERED: BENZOCAINE/MENTHOL LOZENGE PO PRN (08:30)
[2020-02-14] MEDS ORDERED: DOCUSATE SODIUM 100 MG CAPSULE PO PRN (08:30)
[2020-02-14] MEDS ORDERED: OMEPRAZOLE 20 MG CAPSULE PO PRN (08:30)
[2020-02-14] MEDS ORDERED: MAG HYDROX/AL HYDROX/SIMETH ES 30 ML SUSPENSION UDCUP PO PRN (08:30)
[2020-02-14] MEDS ORDERED: PETROLATUM,WHITE 28 GM JELLY TP PRN (08:30)
[2020-02-14] MEDS ORDERED: ACETAMINOPHEN 325 MG TABLET PO PRN (08:30)
[2020-02-14] MEDS ORDERED: ALBUTEROL SULFATE HFA 90 MCG/PUFF 8 GM INHALER IH PRN (08:30)
[2020-02-14] MEDS ORDERED: LOPERAMIDE HCL 2 MG CAPSULE PO PRN (08:30)
[2020-02-14] MEDS ORDERED: IBUPROFEN 600 MG TABLET PO PRN (08:30)
[2020-02-14] MEDS ORDERED: ONDANSETRON HCL 4 MG TABLET PO PRN (08:30)
[2020-02-14] MEDS: LORazepam 2 MG TABLET PO PRN (13:23)
[2020-02-14] MEDS: QUEtiapine FUMARATE 200 MG TABLET PO SCH (20:33)
[2020-02-15] MEDS: LORazepam 2 MG TABLET PO PRN (09:59)
[2020-02-15] MEDS: HALOPERIDOL 5 MG TABLET PO PRN (09:59)
[2020-02-15] MEDS: QUEtiapine FUMARATE 200 MG TABLET PO SCH (20:49)
[2020-02-16 08:07] LABS: BASOPHILS % (AUTO) 0.3 % (0.0-2.0); EOSINOPHILS % (AUTO) 4.6 % (1.0-6.0); HEMATOCRIT 41.5 % (36-46); HEMOGLOBIN 14.7 g/dL (12.0-16.0); LYMPHOCYTES # (AUTO) 1.7 K/uL (1.0-4.8); LYMPHOCYTES % (AUTO) 38.9 % (22.0-44.0); MEAN CORPUSCULAR HEMOGLOBIN 31.2 pg (26.0-34.0); MEAN CORPUSCULAR HGB CONC 35.5 G/dL (31.0-37.0); MEAN CORPUSCULAR VOLUME 88 fL (80-100); MONOCYTES # (AUTO) 0.3 K/uL (0.1-1.0); MONOCYTES % (AUTO) 6.8 % (2.0-9.0); NEUTROPHILS # (AUTO) 2.2 K/uL (1.8-7.7); NEUTROPHILS % (AUTO) 49.4 % (40.0-70.0); PLATELET COUNT (AUTO) 203 K/uL (150-450); RED BLOOD CELL COUNT(AUTO) 4.71 MIL/uL (4.00-5.20); RED CELL DISTRIBUTION WIDTH 13.6 % (11.5-14.5)
[2020-02-16 08:17] LABS: HEMOGLOBIN A1C 5.4 % (3.8-5.6)
[2020-02-16] MEDS: HALOPERIDOL 5 MG TABLET PO PRN ×2 (08:19→16:28)
[2020-02-16] MEDS: LORazepam 2 MG TABLET PO PRN ×2 (08:19→16:28)
[2020-02-16 08:30] LABS: ALANINE AMINOTRANSFERASE 15 U/L (12-78); ALBUMIN 3.7 g/dL (3.4-5.0); ALKALINE PHOSPHATASE 49 U/L (46-116); ANION GAP 8 mmol/L (8-16); ASPARTATE AMINOTRANSFERASE 12 U/L (15-37); BILIRUBIN,TOTAL 0.3 mg/dL (0.1-1.0); CALCIUM, TOTAL 9.6 mg/dL (8.8-10.5); CARBON DIOXIDE 28 mmol/L (22-29); CHLORIDE 104 mmol/L (98-107); CHOL/HDL RATIO 2.9 (3.9-5.7); CHOLESTEROL 172 mg/dL (131-200); CREATININE 0.57 mg/dL (0.60-1.30); GLOMERULAR FILTR. RATE CALC > 60 mL/min (>60); GLUCOSE,RANDOM 93 mg/dL (70-110); HCG,QUANTITATIVE 1 mIU/mL (0-6); HDL CHOLESTEROL 59 mg/dL (40-60); LDL CHOL (CALC.) 96 mg/dL (0-130); POTASSIUM 4.5 mmol/L (3.5-5.1); SODIUM SERUM 140 mmol/L (136-145); TOTAL PROTEIN, SERUM 6.9 g/dL (6.4-8.2); TRIGLYCERIDES 85 mg/dL (15-150); UREA NITROGEN, BLOOD 17 mg/dL (7-18)
[2020-02-16 17:20] VITALS: BP 144/76
[2020-02-16] MEDS: QUEtiapine FUMARATE 200 MG TABLET PO SCH (20:09)
[2020-02-17 13:41] VITALS: BP 140/72
[2020-02-17] MEDS: LORazepam 2 MG TABLET PO PRN (16:36)
[2020-02-17] MEDS: QUEtiapine FUMARATE 200 MG TABLET PO SCH (20:06)
[2020-02-18 08:06] VITALS: BP 136/80
[2020-02-18] MEDS: LORazepam 2 MG TABLET PO PRN ×2 (08:21→15:35)
[2020-02-18] MEDS: HALOPERIDOL 5 MG TABLET PO PRN (08:21)
[2020-02-18 16:17] VITALS: BP 145/91
[2020-02-18] MEDS: QUEtiapine FUMARATE 200 MG TABLET PO SCH (20:06)
[2020-02-19 00:28] VITALS: BP 132/84
[2020-02-19] MEDS: HALOPERIDOL 5 MG TABLET PO PRN (08:41)
[2020-02-19] MEDS: LORazepam 2 MG TABLET PO PRN (08:42)
[2020-02-19 14:13] VITALS: BP 155/87
[2020-02-19 16:00] VITALS: BP 139/85
[2020-02-19] MEDS: QUEtiapine FUMARATE 200 MG TABLET PO SCH (20:06)
[2020-02-20 01:53] VITALS: BP 140/87
[2020-02-20 08:07] VITALS: BP 142/91
[2020-02-20] MEDS: HALOPERIDOL 5 MG TABLET PO PRN (08:57)
[2020-02-20] MEDS: LORazepam 2 MG TABLET PO PRN (08:57)
[2020-02-20] MEDS: MULTIVITAMINS WITH MINERALS, THERAPEUTIC TABLET PO SCH (08:57)
[2020-02-20 16:08] VITALS: BP 140/92
[2020-02-20] MEDS: QUEtiapine FUMARATE 200 MG TABLET PO SCH (20:56)
[2020-02-21 00:37] VITALS: BP 128/88
[2020-02-21 08:19] VITALS: BP 119/68
[2020-02-21] MEDS: HALOPERIDOL 5 MG TABLET PO PRN (08:22)
[2020-02-21] MEDS: LORazepam 2 MG TABLET PO PRN (08:22)
[2020-02-21] MEDS: MULTIVITAMINS WITH MINERALS, THERAPEUTIC TABLET PO SCH (08:23)
[2020-02-21] MEDS: QUEtiapine FUMARATE 200 MG TABLET PO SCH (20:27)
[2020-02-22 06:56] VITALS: BP 116/66
[2020-02-22 08:22] VITALS: BP 126/75
[2020-02-22] MEDS: HALOPERIDOL 5 MG TABLET PO PRN ×2 (08:46→17:20)
[2020-02-22] MEDS: LORazepam 2 MG TABLET PO PRN ×2 (08:46→17:20)
[2020-02-22] MEDS: MULTIVITAMINS WITH MINERALS, THERAPEUTIC TABLET PO SCH (08:47)
[2020-02-22 16:10] VITALS: BP 122/76
[2020-02-22] MEDS: QUEtiapine FUMARATE 200 MG TABLET PO SCH (20:19)
[2020-02-23 00:49] VITALS: BP 115/77
[2020-02-23 07:56] LABS: AMPHET/METH SCREEN,URINE NEGATIVE (NEGATIVE); BARBITURATE SCREEN, URINE NEGATIVE (NEGATIVE); BENZODIAZEPINES SCREEN,URINE NEGATIVE (NEGATIVE); CANNABINOID SCREEN,URINE NEGATIVE (NEGATIVE); COCAINE SCREEN,URINE NEGATIVE (NEGATIVE); METHADONE SCREEN, URINE NEGATIVE (NEGATIVE); OPIATE SCREEN,URINE NEGATIVE (NEGATIVE)
[2020-02-23 08:07] VITALS: BP 117/72
[2020-02-23 08:07] LABS: APPEARANCE,URINE TURBID (CLEAR); BILIRUBIN,URINE NEGATIVE (NEGATIVE); GLUCOSE, URINE (UA) NEGATIVE (NEGATIVE); KETONES,URINE NEGATIVE (NEGATIVE); LEUKOCYTE ESTERASE ,URINE NEGATIVE (NEGATIVE); NITRATE,URINE POSITIVE (NEGATIVE); OCCULT BLOOD,URINE NEGATIVE (NEGATIVE); PH,URINE 7.5 (5.0-8.0); PROTEIN,URINE NEGATIVE (NEGATIVE); UROBILINOGEN,URINE 0.2 mg/dL (<=1.0)
[2020-02-23 08:08] LABS: PHENCYCLIDINE SCREEN,URINE NEGATIVE (NEGATIVE)
[2020-02-23 08:18] LABS: BACTERIA,URINE Moderate /HPF (None Seen); RBC,URINE 0-2 /HPF (0-2); SQUAMOUS EPITHELIAL CELL,UR Many /LPF (None Seen); WBC,URINE 0-2 /HPF (0-5)
[2020-02-23] MEDS: LORazepam 2 MG TABLET PO PRN (08:32)
[2020-02-23] MEDS: HALOPERIDOL 5 MG TABLET PO PRN (08:33)
[2020-02-23] MEDS: MULTIVITAMINS WITH MINERALS, THERAPEUTIC TABLET PO SCH (08:34)
[2020-02-23 16:06] VITALS: BP 133/81
[2020-02-23] MEDS: QUEtiapine FUMARATE 200 MG TABLET PO SCH (20:23)
[2020-02-23 23:57] VITALS: BP 124/78
[2020-02-24 08:05] VITALS: BP 121/75
[2020-02-24] MEDS: MULTIVITAMINS WITH MINERALS, THERAPEUTIC TABLET PO SCH (08:15)
[2020-02-24] MEDS: LORazepam 2 MG TABLET PO PRN ×2 (08:15→16:44)
[2020-02-24] MEDS: NITROFURANTOIN/NITROFURAN MAC 100 MG CAPSULE [MACROBID] PO SCH (17:18)
[2020-02-24 17:41] VITALS: BP 128/91
[2020-02-24] MEDS: QUEtiapine FUMARATE 200 MG TABLET PO SCH (20:24)
[2020-02-25 00:43] VITALS: BP 124/86
[2020-02-25 08:04] VITALS: BP 128/73
[2020-02-25] MEDS: MULTIVITAMINS WITH MINERALS, THERAPEUTIC TABLET PO SCH (09:04)
[2020-02-25] MEDS: NITROFURANTOIN/NITROFURAN MAC 100 MG CAPSULE [MACROBID] PO SCH ×2 (09:04→16:00)
[2020-02-25] MEDS: LORazepam 2 MG TABLET PO PRN (16:00)
[2020-02-25 16:16] VITALS: BP 131/85
[2020-02-25] MEDS: QUEtiapine FUMARATE 200 MG TABLET PO SCH (20:16)
[2020-02-26 00:11] VITALS: BP 124/77
[2020-02-26 08:04] VITALS: BP 125/71
[2020-02-26] MEDS: NITROFURANTOIN/NITROFURAN MAC 100 MG CAPSULE [MACROBID] PO SCH ×2 (08:46→16:07)
[2020-02-26] MEDS: MULTIVITAMINS WITH MINERALS, THERAPEUTIC TABLET PO SCH (08:46)
[2020-02-26] MEDS ORDERED: TUBERCULIN, PURIFIED PROTEIN DERIVATIVE 5 TU/0.1 ML SYRINGE ID ONE (12:00)
[2020-02-26] MEDS: LORazepam 2 MG TABLET PO PRN (12:46)
[2020-02-26] MEDS: HALOPERIDOL 5 MG TABLET PO PRN (12:46)
[2020-02-26 16:13] VITALS: BP 126/86
[2020-02-26] MEDS: QUEtiapine FUMARATE 200 MG TABLET PO SCH (20:13)
[2020-02-27 00:21] VITALS: BP 120/80
[2020-02-27] MEDS: MULTIVITAMINS WITH MINERALS, THERAPEUTIC TABLET PO SCH (08:06)
[2020-02-27] MEDS: NITROFURANTOIN/NITROFURAN MAC 100 MG CAPSULE [MACROBID] PO SCH ×2 (08:06→16:32)
[2020-02-27] MEDS: LORazepam 2 MG TABLET PO PRN ×2 (08:09→16:32)
[2020-02-27 08:16] VITALS: BP 115/75
[2020-02-27 16:09] VITALS: BP 136/49
[2020-02-27] MEDS: QUEtiapine FUMARATE 200 MG TABLET PO SCH (20:33)
[2020-02-27 22:37] LABS: COVID AG,FIA SOURCE NASOPHARYNGEAL
[2020-02-28 00:30] VITALS: BP 124/63
[2020-02-28 08:05] VITALS: BP 121/67
[2020-02-28] MEDS: HALOPERIDOL 5 MG TABLET PO PRN ×2 (08:22→15:51)
[2020-02-28] MEDS: MULTIVITAMINS WITH MINERALS, THERAPEUTIC TABLET PO SCH (08:22)
[2020-02-28] MEDS: NITROFURANTOIN/NITROFURAN MAC 100 MG CAPSULE [MACROBID] PO SCH ×2 (08:22→15:51)
[2020-02-28] MEDS: LORazepam 2 MG TABLET PO PRN ×2 (08:22→15:51)
[2020-02-28 16:22] VITALS: BP 129/71
[2020-02-28] MEDS: QUEtiapine FUMARATE 200 MG TABLET PO SCH (19:52)
[2020-02-29 00:35] VITALS: BP 120/74
[2020-02-29] MEDS: LORazepam 2 MG TABLET PO PRN ×2 (09:09→15:55)
[2020-02-29] MEDS: MULTIVITAMINS WITH MINERALS, THERAPEUTIC TABLET PO SCH (09:09)
[2020-02-29] MEDS: NITROFURANTOIN/NITROFURAN MAC 100 MG CAPSULE [MACROBID] PO SCH ×2 (09:09→16:05)
[2020-02-29] MEDS: HALOPERIDOL 5 MG TABLET PO PRN (15:55)
[2020-02-29 16:01] VITALS: BP 124/78
[2020-02-29] MEDS: QUEtiapine FUMARATE 200 MG TABLET PO SCH (20:39)
[2020-03-01 00:22] VITALS: BP 120/76
[2020-03-01] MEDS: NITROFURANTOIN/NITROFURAN MAC 100 MG CAPSULE [MACROBID] PO SCH ×2 (08:03→16:38)
[2020-03-01] MEDS: MULTIVITAMINS WITH MINERALS, THERAPEUTIC TABLET PO SCH (08:03)
[2020-03-01 08:09] VITALS: BP 113/65
[2020-03-01] MEDS: LORazepam 2 MG TABLET PO PRN (10:16)
[2020-03-01 16:09] VITALS: BP 123/82
[2020-03-01] MEDS: QUEtiapine FUMARATE 200 MG TABLET PO SCH (20:11)
[2020-03-02 01:49] VITALS: BP 112/78
[2020-03-02 08:08] VITALS: BP 109/74
[2020-03-02] MEDS: NITROFURANTOIN/NITROFURAN MAC 100 MG CAPSULE [MACROBID] PO SCH (08:11)
[2020-03-02] MEDS: MULTIVITAMINS WITH MINERALS, THERAPEUTIC TABLET PO SCH (08:11)
[2020-03-02] MEDS ORDERED: LORazepam 2 MG/ML VIAL ONE (12:18)
[2020-03-02] MEDS ORDERED: LORazepam 2 MG/ML VIAL IM ONE (12:45)
[2020-03-02] MEDS: LORazepam 2 MG TABLET PO PRN (15:48)
[2020-03-02 16:04] VITALS: BP 154/94
[2020-03-02] MEDS: QUEtiapine FUMARATE 200 MG TABLET PO SCH (20:07)
[2020-03-03 00:25] VITALS: BP 132/82
[2020-03-03] MEDS: LORazepam 2 MG TABLET PO PRN ×2 (07:32→14:03)
[2020-03-03] MEDS: MULTIVITAMINS WITH MINERALS, THERAPEUTIC TABLET PO SCH (07:32)
[2020-03-03] MEDS: HALOPERIDOL 5 MG TABLET PO PRN ×2 (07:32→14:03)
[2020-03-03 08:11] VITALS: BP 104/63
[2020-03-03 17:46] VITALS: BP 130/87
[2020-03-03] MEDS: QUEtiapine FUMARATE 200 MG TABLET PO SCH (19:59)
[2020-03-04 05:29] VITALS: BP 131/81
[2020-03-04 08:04] VITALS: BP 117/71
[2020-03-04] MEDS: LORazepam 2 MG TABLET PO PRN ×2 (08:12→16:25)
[2020-03-04] MEDS: MULTIVITAMINS WITH MINERALS, THERAPEUTIC TABLET PO SCH (08:12)
[2020-03-04 16:01] VITALS: BP 136/82
[2020-03-04] MEDS: HALOPERIDOL 5 MG TABLET PO PRN (16:25)
[2020-03-04] MEDS: QUEtiapine FUMARATE 200 MG TABLET PO SCH (20:01)
[2020-03-05 05:59] VITALS: BP 126/78
[2020-03-05 08:04] VITALS: BP 127/78
[2020-03-05] MEDS: MULTIVITAMINS WITH MINERALS, THERAPEUTIC TABLET PO SCH (08:30)
[2020-03-05] MEDS: HALOPERIDOL 5 MG TABLET PO PRN (08:30)
[2020-03-05] MEDS: LORazepam 2 MG TABLET PO PRN ×2 (08:30→16:04)
[2020-03-05 16:21] VITALS: BP 136/80
[2020-03-05] MEDS: QUEtiapine FUMARATE 200 MG TABLET PO SCH (20:08)
[2020-03-06 00:04] VITALS: BP 124/78
[2020-03-06 08:02] VITALS: BP 123/65
[2020-03-06] MEDS: LORazepam 2 MG TABLET PO PRN ×2 (08:15→16:09)
[2020-03-06] MEDS: HALOPERIDOL 5 MG TABLET PO PRN (08:15)
[2020-03-06] MEDS: MULTIVITAMINS WITH MINERALS, THERAPEUTIC TABLET PO SCH (08:15)
[2020-03-06 16:03] VITALS: BP 124/72
[2020-03-06] MEDS: QUEtiapine FUMARATE 200 MG TABLET PO SCH (20:34)
[2020-03-07 00:39] VITALS: BP 121/70
[2020-03-07] MEDS: LORazepam 2 MG TABLET PO PRN ×2 (08:02→15:52)
[2020-03-07] MEDS: HALOPERIDOL 5 MG TABLET PO PRN (08:02)
[2020-03-07] MEDS: MULTIVITAMINS WITH MINERALS, THERAPEUTIC TABLET PO SCH (08:03)
[2020-03-07 16:01] VITALS: BP 103/66
[2020-03-07] MEDS: QUEtiapine FUMARATE 200 MG TABLET PO SCH (20:30)
[2020-03-08 00:21] VITALS: BP 100/70
[2020-03-08 08:04] VITALS: BP 127/78
[2020-03-08] MEDS: MULTIVITAMINS WITH MINERALS, THERAPEUTIC TABLET PO SCH (08:04)
[2020-03-08] MEDS: LORazepam 2 MG TABLET PO PRN ×2 (08:04→16:52)
[2020-03-08] MEDS: HALOPERIDOL 5 MG TABLET PO PRN (08:04)
[2020-03-08 16:16] VITALS: BP 125/76
[2020-03-08] MEDS: QUEtiapine FUMARATE 200 MG TABLET PO SCH (20:21)
[2020-03-09 00:13] VITALS: BP 115/74
[2020-03-09] MEDS: LORazepam 2 MG TABLET PO PRN (08:07)
[2020-03-09] MEDS: MULTIVITAMINS WITH MINERALS, THERAPEUTIC TABLET PO SCH (08:07)
[2020-03-09 08:14] VITALS: BP 116/63
[2020-03-09] MEDS: HALOPERIDOL 5 MG TABLET PO PRN (08:42)
[2020-03-09 16:10] VITALS: BP 123/84
[2020-03-09] MEDS: QUEtiapine FUMARATE 200 MG TABLET PO SCH (20:01)
[2020-03-10 00:10] VITALS: BP 120/78
[2020-03-10 08:06] VITALS: BP 120/88
[2020-03-10] MEDS: HALOPERIDOL 5 MG TABLET PO PRN (08:31)
[2020-03-10] MEDS: MULTIVITAMINS WITH MINERALS, THERAPEUTIC TABLET PO SCH (08:31)
[2020-03-10] MEDS: LORazepam 2 MG TABLET PO PRN (08:31)
[2020-03-10 16:02] VITALS: BP 135/76
[2020-03-10] MEDS: QUEtiapine FUMARATE 200 MG TABLET PO SCH (20:03)
[2020-03-11 01:08] VITALS: BP 120/86
[2020-03-11 08:03] VITALS: BP 105/68
[2020-03-11] MEDS: MULTIVITAMINS WITH MINERALS, THERAPEUTIC TABLET PO SCH (08:06)
[2020-03-11] MEDS: LORazepam 2 MG TABLET PO PRN ×2 (08:06→20:44)
[2020-03-11] MEDS: HALOPERIDOL 5 MG TABLET PO PRN (08:06)
[2020-03-11 16:04] VITALS: BP 134/87
[2020-03-11] MEDS: QUEtiapine FUMARATE 200 MG TABLET PO SCH (20:44)
[2020-03-12 00:19] VITALS: BP 124/88
[2020-03-12 08:08] VITALS: BP 121/69
[2020-03-12] MEDS: MULTIVITAMINS WITH MINERALS, THERAPEUTIC TABLET PO SCH (08:16)
[2020-03-12] MEDS: HALOPERIDOL 5 MG TABLET PO PRN ×2 (08:16→21:13)
[2020-03-12 16:30] VITALS: BP 140/80
[2020-03-12] MEDS: QUEtiapine FUMARATE 200 MG TABLET PO SCH (20:05)
[2020-03-13 03:32] VITALS: BP 130/72
[2020-03-13] MEDS: MULTIVITAMINS WITH MINERALS, THERAPEUTIC TABLET PO SCH (08:04)
[2020-03-13] MEDS: LORazepam 1 MG TABLET PO PRN ×2 (08:05→20:37)
[2020-03-13 08:42] VITALS: BP 113/76
[2020-03-13] MEDS: HALOPERIDOL 5 MG TABLET PO PRN (12:28)
[2020-03-13 16:08] VITALS: BP 136/81
[2020-03-13] MEDS: QUEtiapine FUMARATE 200 MG TABLET PO SCH (20:37)
[2020-03-14 00:46] VITALS: BP 120/76
[2020-03-14] MEDS: MULTIVITAMINS WITH MINERALS, THERAPEUTIC TABLET PO SCH (08:12)
[2020-03-14] MEDS: LORazepam 1 MG TABLET PO PRN ×2 (08:12→16:11)
[2020-03-14 08:15] VITALS: BP 126/76
[2020-03-14 16:04] VITALS: BP 124/81
[2020-03-14] MEDS: QUEtiapine FUMARATE 200 MG TABLET PO SCH (20:07)
[2020-03-14 20:37] LABS: COVID AG,FIA SOURCE NASOPHARYNGEAL
[2020-03-15 00:39] VITALS: BP 118/79
[2020-03-15] MEDS: LORazepam 1 MG TABLET PO PRN ×2 (08:03→16:13)
[2020-03-15] MEDS: MULTIVITAMINS WITH MINERALS, THERAPEUTIC TABLET PO SCH (08:04)
[2020-03-15 08:22] VITALS: BP 147/85
[2020-03-15 16:00] VITALS: BP 140/89
[2020-03-15] MEDS: QUEtiapine FUMARATE 200 MG TABLET PO SCH (20:08)
[2020-03-16 01:18] VITALS: BP 125/82
[2020-03-16 08:09] VITALS: BP 136/80
[2020-03-16] MEDS: MULTIVITAMINS WITH MINERALS, THERAPEUTIC TABLET PO SCH (08:09)
[2020-03-16] MEDS: HALOPERIDOL 5 MG TABLET PO PRN (08:09)
[2020-03-16 16:10] VITALS: BP 139/89
[2020-03-16] MEDS: LORazepam 1 MG TABLET PO PRN (16:46)
[2020-03-16] MEDS: QUEtiapine FUMARATE 200 MG TABLET PO SCH (19:55)
[2020-03-17 06:00] VITALS: BP 130/86
[2020-03-17 08:34] VITALS: BP 116/77
[2020-03-17] MEDS: MULTIVITAMINS WITH MINERALS, THERAPEUTIC TABLET PO SCH (08:52)
[2020-03-17] MEDS: HALOPERIDOL 5 MG TABLET PO PRN (09:05)
[2020-03-17] MEDS: LORazepam 1 MG TABLET PO PRN (09:05)
[2020-03-17 16:02] VITALS: BP 120/82
[2020-03-17] MEDS: QUEtiapine FUMARATE 200 MG TABLET PO SCH (20:06)
[2020-03-18 00:48] VITALS: BP 118/70
[2020-03-18] MEDS: LORazepam 1 MG TABLET PO PRN ×2 (08:09→20:05)
[2020-03-18] MEDS: HALOPERIDOL 5 MG TABLET PO PRN (08:09)
[2020-03-18] MEDS: MULTIVITAMINS WITH MINERALS, THERAPEUTIC TABLET PO SCH (08:09)
[2020-03-18 08:34] VITALS: BP 118/85
[2020-03-18 16:11] VITALS: BP 127/82
[2020-03-18 16:25] VITALS: BP 127/82
[2020-03-18] MEDS: QUEtiapine FUMARATE 200 MG TABLET PO SCH (20:05)
[2020-03-19 01:35] VITALS: BP 122/76
[2020-03-19] MEDS: MULTIVITAMINS WITH MINERALS, THERAPEUTIC TABLET PO SCH (08:00)
[2020-03-19] MEDS: LORazepam 1 MG TABLET PO PRN ×2 (08:00→17:05)
[2020-03-19 08:09] VITALS: BP 148/87
[2020-03-19 16:03] VITALS: BP 138/78
[2020-03-19] MEDS: QUEtiapine FUMARATE 200 MG TABLET PO SCH (20:07)
[2020-03-19] MEDS: HALOPERIDOL 5 MG TABLET PO PRN (20:08)
[2020-03-20 01:04] VITALS: BP 124/74
[2020-03-20] MEDS: LORazepam 1 MG TABLET PO PRN ×2 (08:05→16:09)
[2020-03-20] MEDS: MULTIVITAMINS WITH MINERALS, THERAPEUTIC TABLET PO SCH (08:05)
[2020-03-20 08:19] VITALS: BP 133/104
[2020-03-20 16:06] VITALS: BP 121/80
[2020-03-20] MEDS: QUEtiapine FUMARATE 200 MG TABLET PO SCH (20:26)
[2020-03-21 01:07] VITALS: BP 116/76
[2020-03-21 07:45] LABS: BAND NEUTROPHILS % (MANUAL) 0 % (0-5)
[2020-03-21 08:00] LABS: HEMATOCRIT 37.8 % (36-46); HEMOGLOBIN 12.8 g/dL (12.0-16.0); MEAN CORPUSCULAR HEMOGLOBIN 30.3 pg (26.0-34.0); MEAN CORPUSCULAR HGB CONC 33.9 G/dL (31.0-37.0); MEAN CORPUSCULAR VOLUME 89 fL (80-100); PLATELET COUNT (AUTO) 171 K/uL (150-450); RED BLOOD CELL COUNT(AUTO) 4.23 MIL/uL (4.00-5.20); RED CELL DISTRIBUTION WIDTH 14.4 % (11.5-14.5)
[2020-03-21 08:05] LABS: COVID AG,FIA SOURCE NASOPHARYNGEAL
[2020-03-21] MEDS: LORazepam 1 MG TABLET PO PRN ×3 (08:17→22:22)
[2020-03-21] MEDS: MULTIVITAMINS WITH MINERALS, THERAPEUTIC TABLET PO SCH (08:17)
[2020-03-21 08:19] VITALS: BP 119/66
[2020-03-21 08:25] LABS: % IRON SATURATION 16.5 % (22-44); IRON, SERUM 57 mcg/dL (50-175); TOTAL IRON BINDING CAPACITY 345 mcg/dL (250-450)
[2020-03-21 08:26] LABS: ANION GAP 8 mmol/L (8-16); CALCIUM, TOTAL 8.8 mg/dL (8.8-10.5); CARBON DIOXIDE 28 mmol/L (22-29); CHLORIDE 103 mmol/L (98-107); CREATININE 0.59 mg/dL (0.60-1.30); GLOMERULAR FILTR. RATE CALC > 60 mL/min (>60); GLUCOSE,RANDOM 87 mg/dL (70-110); POTASSIUM 4.3 mmol/L (3.5-5.1); SODIUM SERUM 139 mmol/L (136-145); UREA NITROGEN, BLOOD 19 mg/dL (7-18)
[2020-03-21 09:06] LABS: EOSINOPHILS % (MANUAL) 8 % (1-6); LYMPHOCYTES % (MANUAL) 25 % (22-44); MONOCYTES % (MANUAL) 6 % (2-9); SEGMENTED NEUTROPHILS % 61 % (40-70)
[2020-03-21 16:17] VITALS: BP 139/86
[2020-03-21] MEDS: QUEtiapine FUMARATE 200 MG TABLET PO SCH (20:54)
[2020-03-22 01:44] VITALS: BP 124/80
[2020-03-22 08:20] VITALS: BP 106/67
[2020-03-22] MEDS: LORazepam 1 MG TABLET PO PRN ×2 (11:40→18:04)
[2020-03-22 16:01] VITALS: BP 140/80
[2020-03-22] MEDS: QUEtiapine FUMARATE 200 MG TABLET PO SCH (20:00)
[2020-03-23 01:30] VITALS: BP 122/76
[2020-03-23] MEDS: FERROUS SULFATE 325 MG EC TABLET PO SCH ×2 (06:53→16:33)
[2020-03-23 08:08] VITALS: BP 116/62
[2020-03-23] MEDS: MAGNESIUM OXIDE 400 MG TABLET PO SCH ×2 (08:31→16:33)
[2020-03-23] MEDS: LORazepam 1 MG TABLET PO PRN ×2 (08:31→16:34)
[2020-03-23 16:06] VITALS: BP 136/96
[2020-03-23] MEDS: QUEtiapine FUMARATE 200 MG TABLET PO SCH (20:39)
[2020-03-24 00:34] VITALS: BP 122/80
[2020-03-24] MEDS: FERROUS SULFATE 325 MG EC TABLET PO SCH ×2 (07:00→16:51)
[2020-03-24 08:11] VITALS: BP 105/60
[2020-03-24] MEDS: MAGNESIUM OXIDE 400 MG TABLET PO SCH ×2 (08:16→16:51)
[2020-03-24 09:00] VITALS: BP 110/72
[2020-03-24] MEDS: LORazepam 1 MG TABLET PO PRN ×2 (09:08→16:51)
[2020-03-24 16:08] VITALS: BP 114/72
[2020-03-24] MEDS: QUEtiapine FUMARATE 200 MG TABLET PO SCH (20:46)
[2020-03-25 06:03] VITALS: BP 104/78
[2020-03-25] MEDS: FERROUS SULFATE 325 MG EC TABLET PO SCH ×2 (06:47→16:44)
[2020-03-25] MEDS: MAGNESIUM OXIDE 400 MG TABLET PO SCH ×2 (07:56→16:44)
[2020-03-25] MEDS: LORazepam 1 MG TABLET PO PRN ×2 (07:56→16:12)
[2020-03-25 08:11] VITALS: BP 128/78
[2020-03-25 16:06] VITALS: BP 151/99
[2020-03-25 17:00] VITALS: BP 134/84
[2020-03-25] MEDS: QUEtiapine FUMARATE 200 MG TABLET PO SCH (20:08)
[2020-03-26 01:29] VITALS: BP 126/82
[2020-03-26] MEDS: FERROUS SULFATE 325 MG EC TABLET PO SCH ×2 (07:06→16:37)
[2020-03-26 08:08] VITALS: BP 120/87
[2020-03-26] MEDS: MAGNESIUM OXIDE 400 MG TABLET PO SCH ×2 (08:11→16:37)
[2020-03-26] MEDS: LORazepam 1 MG TABLET PO PRN ×2 (10:35→20:07)
[2020-03-26 16:03] VITALS: BP 120/80
[2020-03-26] MEDS: QUEtiapine FUMARATE 200 MG TABLET PO SCH (20:06)
[2020-03-27 03:37] VITALS: BP 139/63
[2020-03-27] MEDS: FERROUS SULFATE 325 MG EC TABLET PO SCH ×2 (06:26→16:01)
[2020-03-27] MEDS: MAGNESIUM OXIDE 400 MG TABLET PO SCH ×2 (08:02→16:01)
[2020-03-27 08:13] VITALS: BP 119/68
[2020-03-27 08:22] LABS: PHOSPHORUS 4.7 mg/dL (2.5-4.9)
[2020-03-27] MEDS: LORazepam 1 MG TABLET PO PRN ×2 (08:44→16:00)
[2020-03-27 16:11] VITALS: BP 132/96
[2020-03-27] MEDS: QUEtiapine FUMARATE 200 MG TABLET PO SCH (20:32)
[2020-03-28 02:05] VITALS: BP 128/85
[2020-03-28] MEDS: FERROUS SULFATE 325 MG EC TABLET PO SCH ×2 (06:37→17:03)
[2020-03-28 08:25] VITALS: BP 100/58
[2020-03-28] MEDS: MAGNESIUM OXIDE 400 MG TABLET PO SCH ×2 (09:00→17:03)
[2020-03-28 11:50] VITALS: BP 114/72
[2020-03-28] MEDS: LORazepam 1 MG TABLET PO PRN ×2 (11:52→18:18)
[2020-03-28 16:17] VITALS: BP 133/76
[2020-03-28] MEDS: QUEtiapine FUMARATE 200 MG TABLET PO SCH (20:32)
[2020-03-29 05:28] VITALS: BP 125/71
[2020-03-29] MEDS: FERROUS SULFATE 325 MG EC TABLET PO SCH ×2 (06:38→16:07)
[2020-03-29] MEDS: MAGNESIUM OXIDE 400 MG TABLET PO SCH ×2 (08:23→16:07)
[2020-03-29 08:42] VITALS: BP 100/58
[2020-03-29 08:50] VITALS: BP 112/70
[2020-03-29] MEDS: LORazepam 1 MG TABLET PO PRN ×2 (08:53→16:07)
[2020-03-29 16:09] VITALS: BP 139/83
[2020-03-29] MEDS: QUEtiapine FUMARATE 200 MG TABLET PO SCH (20:09)
[2020-03-30 06:28] VITALS: BP 128/68
[2020-03-30] MEDS: FERROUS SULFATE 325 MG EC TABLET PO SCH ×2 (06:46→16:29)
[2020-03-30 08:00] VITALS: BP 119/67
[2020-03-30] MEDS: MAGNESIUM OXIDE 400 MG TABLET PO SCH ×2 (08:24→16:29)
[2020-03-30] MEDS: LORazepam 1 MG TABLET PO PRN ×2 (09:28→16:37)
[2020-03-30 10:36] LABS: COVID AG,FIA SOURCE NASOPHARYNGEAL
[2020-03-30 16:38] VITALS: BP 124/71
[2020-03-30] MEDS: QUEtiapine FUMARATE 200 MG TABLET PO SCH (20:03)
[2020-03-31 00:54] VITALS: BP 121/76
[2020-03-31] MEDS: FERROUS SULFATE 325 MG EC TABLET PO SCH ×2 (06:40→16:14)
[2020-03-31] MEDS: MAGNESIUM OXIDE 400 MG TABLET PO SCH ×2 (08:57→16:14)
[2020-03-31] MEDS: LORazepam 1 MG TABLET PO PRN ×2 (08:57→16:14)
[2020-03-31 09:27] VITALS: BP 122/71
[2020-03-31 16:16] VITALS: BP 140/84
[2020-03-31] MEDS: QUEtiapine FUMARATE 200 MG TABLET PO SCH (20:06)
[2020-04-01 00:45] VITALS: BP 126/82
[2020-04-01] MEDS: FERROUS SULFATE 325 MG EC TABLET PO SCH ×2 (07:01→16:44)
[2020-04-01 08:20] VITALS: BP 105/67
[2020-04-01] MEDS ORDERED: LORazepam 0.5 MG TABLET PO PRN (08:45)
[2020-04-01] MEDS: HALOPERIDOL 5 MG TABLET PO PRN (09:00)
[2020-04-01] MEDS: MAGNESIUM OXIDE 400 MG TABLET PO SCH ×2 (09:00→16:35)
[2020-04-01] MEDS: LORazepam 1 MG TABLET PO PRN ×2 (10:25→16:37)
[2020-04-01 16:52] VITALS: BP 123/63
[2020-04-01] MEDS: QUEtiapine FUMARATE 200 MG TABLET PO SCH (20:41)
[2020-04-02 01:18] VITALS: BP 117/72
[2020-04-02] MEDS: FERROUS SULFATE 325 MG EC TABLET PO SCH ×2 (06:30→16:49)
[2020-04-02] MEDS: MAGNESIUM OXIDE 400 MG TABLET PO SCH ×2 (08:27→16:49)
[2020-04-02 08:31] VITALS: BP 100/55
[2020-04-02 08:50] VITALS: BP 112/74
[2020-04-02] MEDS: LORazepam 1 MG TABLET PO PRN ×2 (08:57→16:49)
[2020-04-02 17:02] VITALS: BP 103/62
[2020-04-02] MEDS: QUEtiapine FUMARATE 200 MG TABLET PO SCH (20:47)
[2020-04-03 03:40] VITALS: BP 108/64
[2020-04-03] MEDS: FERROUS SULFATE 325 MG EC TABLET PO SCH ×2 (06:18→16:06)
[2020-04-03] MEDS: MAGNESIUM OXIDE 400 MG TABLET PO SCH ×2 (08:10→16:06)
[2020-04-03 08:11] VITALS: BP 107/64
[2020-04-03] MEDS: LORazepam 1 MG TABLET PO PRN ×2 (09:47→16:09)
[2020-04-03 16:06] VITALS: BP 130/71
[2020-04-03] MEDS: QUEtiapine FUMARATE 200 MG TABLET PO SCH (20:38)
[2020-04-04 01:57] VITALS: BP 124/70
[2020-04-04] MEDS: FERROUS SULFATE 325 MG EC TABLET PO SCH ×2 (06:39→16:09)
[2020-04-04 08:22] VITALS: BP 110/64
[2020-04-04] MEDS: MAGNESIUM OXIDE 400 MG TABLET PO SCH ×2 (08:29→16:09)
[2020-04-04] MEDS: LORazepam 1 MG TABLET PO PRN ×2 (10:29→16:36)
[2020-04-04 16:13] VITALS: BP 134/69
[2020-04-04] MEDS: QUEtiapine FUMARATE 200 MG TABLET PO SCH (20:33)
[2020-04-05 05:13] VITALS: BP 118/66
[2020-04-05] MEDS: FERROUS SULFATE 325 MG EC TABLET PO SCH ×2 (06:30→15:58)
[2020-04-05 08:07] VITALS: BP 119/70
[2020-04-05] MEDS: MAGNESIUM OXIDE 400 MG TABLET PO SCH ×2 (08:16→15:58)
[2020-04-05] MEDS: LORazepam 1 MG TABLET PO PRN ×2 (10:31→16:29)
[2020-04-05 16:09] VITALS: BP 117/75
[2020-04-05] MEDS: QUEtiapine FUMARATE 200 MG TABLET PO SCH (19:43)
[2020-04-06 01:47] VITALS: BP 102/72
[2020-04-06] MEDS: FERROUS SULFATE 325 MG EC TABLET PO SCH ×2 (06:30→16:01)
[2020-04-06 08:31] VITALS: BP 112/84
[2020-04-06] MEDS: MAGNESIUM OXIDE 400 MG TABLET PO SCH ×2 (09:04→16:01)
[2020-04-06] MEDS: LORazepam 1 MG TABLET PO PRN (15:59)
[2020-04-06 16:14] VITALS: BP 130/67
[2020-04-06] MEDS: QUEtiapine FUMARATE 200 MG TABLET PO SCH (20:31)
[2020-04-07 02:00] VITALS: BP 114/64
[2020-04-07] MEDS: FERROUS SULFATE 325 MG EC TABLET PO SCH ×2 (06:44→16:30)
[2020-04-07 08:13] VITALS: BP 121/80
[2020-04-07] MEDS: MAGNESIUM OXIDE 400 MG TABLET PO SCH ×2 (08:28→16:30)
[2020-04-07] MEDS: LORazepam 1 MG TABLET PO PRN ×2 (11:41→16:41)
[2020-04-07 16:12] VITALS: BP 128/88
[2020-04-07] MEDS: QUEtiapine FUMARATE 200 MG TABLET PO SCH (20:03)
[2020-04-08 00:39] VITALS: BP 124/94
[2020-04-08] MEDS: FERROUS SULFATE 325 MG EC TABLET PO SCH ×2 (06:30→16:05)
[2020-04-08 07:19] LABS: COVID AG,FIA SOURCE NASOPHARYNGEAL
[2020-04-08 08:30] VITALS: BP 128/66
[2020-04-08] MEDS: MAGNESIUM OXIDE 400 MG TABLET PO SCH ×2 (08:30→16:05)
[2020-04-08] MEDS: LORazepam 1 MG TABLET PO PRN ×2 (08:32→16:05)
[2020-04-08 08:34] VITALS: BP 128/66
[2020-04-08 16:08] VITALS: BP 131/82
[2020-04-08] MEDS: QUEtiapine FUMARATE 200 MG TABLET PO SCH (20:20)
[2020-04-09 02:09] VITALS: BP 115/78
[2020-04-09] MEDS: FERROUS SULFATE 325 MG EC TABLET PO SCH ×2 (06:28→16:00)
[2020-04-09 08:15] VITALS: BP 125/63
[2020-04-09] MEDS: MAGNESIUM OXIDE 400 MG TABLET PO SCH ×2 (08:48→16:00)
[2020-04-09] MEDS: LORazepam 1 MG TABLET PO PRN ×2 (09:19→16:01)
[2020-04-09 16:11] VITALS: BP 110/68
[2020-04-09] MEDS: QUEtiapine FUMARATE 200 MG TABLET PO SCH (20:14)
[2020-04-10 00:29] VITALS: BP 102/66
[2020-04-10] MEDS: FERROUS SULFATE 325 MG EC TABLET PO SCH ×2 (06:39→16:14)
[2020-04-10] MEDS: MAGNESIUM OXIDE 400 MG TABLET PO SCH ×2 (08:01→16:14)
[2020-04-10] MEDS: LORazepam 1 MG TABLET PO PRN ×2 (08:01→16:14)
[2020-04-10 08:03] VITALS: BP 121/69
[2020-04-10 16:01] VITALS: BP 129/86
[2020-04-10] MEDS: QUEtiapine FUMARATE 200 MG TABLET PO SCH (20:14)
[2020-04-11 00:26] VITALS: BP 123/82
[2020-04-11] MEDS: FERROUS SULFATE 325 MG EC TABLET PO SCH ×2 (06:54→16:32)
[2020-04-11 08:11] VITALS: BP 119/66
[2020-04-11] MEDS: MAGNESIUM OXIDE 400 MG TABLET PO SCH ×2 (08:24→16:32)
[2020-04-11] MEDS: LORazepam 1 MG TABLET PO PRN ×2 (08:24→16:33)
[2020-04-11 16:08] VITALS: BP 131/65
[2020-04-11] MEDS: QUEtiapine FUMARATE 200 MG TABLET PO SCH (21:00)
[2020-04-12 00:35] VITALS: BP 125/80
[2020-04-12] MEDS: FERROUS SULFATE 325 MG EC TABLET PO SCH ×2 (06:54→16:21)
[2020-04-12 08:07] VITALS: BP 144/65
[2020-04-12] MEDS: LORazepam 1 MG TABLET PO PRN ×2 (08:21→16:21)
[2020-04-12] MEDS: MAGNESIUM OXIDE 400 MG TABLET PO SCH ×2 (08:21→16:21)
[2020-04-12 16:04] VITALS: BP 124/76
[2020-04-12] MEDS: QUEtiapine FUMARATE 200 MG TABLET PO SCH (20:39)
[2020-04-13 01:06] VITALS: BP 73/18
[2020-04-13] MEDS: FERROUS SULFATE 325 MG EC TABLET PO SCH ×2 (06:34→16:02)
[2020-04-13 08:04] VITALS: BP 104/66
[2020-04-13] MEDS: LORazepam 1 MG TABLET PO PRN ×2 (08:27→16:29)
[2020-04-13] MEDS: MAGNESIUM OXIDE 400 MG TABLET PO SCH ×2 (08:27→16:02)
[2020-04-13 16:03] VITALS: BP 119/70
[2020-04-13] MEDS: QUEtiapine FUMARATE 200 MG TABLET PO SCH (20:09)
[2020-04-14 00:20] VITALS: BP 117/73
[2020-04-14] MEDS: FERROUS SULFATE 325 MG EC TABLET PO SCH ×2 (06:39→17:07)
[2020-04-14 08:21] VITALS: BP 128/72
[2020-04-14] MEDS: MAGNESIUM OXIDE 400 MG TABLET PO SCH ×2 (08:30→17:07)
[2020-04-14] MEDS: LORazepam 1 MG TABLET PO PRN ×2 (08:31→16:02)
[2020-04-14 16:12] VITALS: BP 126/69
[2020-04-14] MEDS: QUEtiapine FUMARATE 200 MG TABLET PO SCH (20:51)
[2020-04-15 00:44] VITALS: BP 119/75
[2020-04-15] MEDS: FERROUS SULFATE 325 MG EC TABLET PO SCH ×2 (06:46→17:03)
[2020-04-15] MEDS: MAGNESIUM OXIDE 400 MG TABLET PO SCH ×2 (07:58→17:03)
[2020-04-15] MEDS: LORazepam 1 MG TABLET PO PRN ×2 (07:58→16:11)
[2020-04-15 08:30] VITALS: BP 122/72
[2020-04-15 14:28] LABS: COVID AG,FIA SOURCE NASOPHARYNGEAL
[2020-04-15 16:00] VITALS: BP 119/83
[2020-04-15] MEDS: QUEtiapine FUMARATE 200 MG TABLET PO SCH (20:09)
[2020-04-16 01:47] VITALS: BP 115/79
[2020-04-16] MEDS: FERROUS SULFATE 325 MG EC TABLET PO SCH ×2 (06:16→16:05)
[2020-04-16] MEDS: LORazepam 1 MG TABLET PO PRN ×2 (08:06→16:05)
[2020-04-16] MEDS: MAGNESIUM OXIDE 400 MG TABLET PO SCH ×2 (08:06→16:05)
[2020-04-16 08:20] VITALS: BP 103/66
[2020-04-16 16:04] VITALS: BP 128/73
[2020-04-16] MEDS: IBUPROFEN 600 MG TABLET PO PRN (16:19)
[2020-04-16] MEDS ORDERED: BENZOCAINE/MENTHOL LOZENGE PO PRN (16:30)
[2020-04-16] MEDS ORDERED: ONDANSETRON HCL 4 MG TABLET PO PRN (16:30)
[2020-04-16] MEDS ORDERED: LOPERAMIDE HCL 2 MG CAPSULE PO PRN (16:30)
[2020-04-16] MEDS ORDERED: PETROLATUM,WHITE 28 GM JELLY TP PRN (16:30)
[2020-04-16] MEDS ORDERED: CloNIDine HCL 0.1 MG TABLET PO PRN (16:30)
[2020-04-16] MEDS ORDERED: MAGNESIUM HYDROXIDE SUSPENSION 30 ML UDCUP PO PRN (16:30)
[2020-04-16] MEDS ORDERED: ALBUTEROL SULFATE HFA 90 MCG/PUFF 8 GM INHALER IH PRN (16:30)
[2020-04-16] MEDS ORDERED: MAG HYDROX/AL HYDROX/SIMETH ES 30 ML SUSPENSION UDCUP PO PRN (16:30)
[2020-04-16] MEDS ORDERED: DOCUSATE SODIUM 100 MG CAPSULE PO PRN (16:30)
[2020-04-16] MEDS ORDERED: OMEPRAZOLE 20 MG CAPSULE PO PRN (16:30)
[2020-04-16] MEDS ORDERED: HALOPERIDOL 5 MG TABLET PO PRN (17:00)
[2020-04-16] MEDS: QUEtiapine FUMARATE 200 MG TABLET PO SCH (20:02)
[2020-04-17 06:17] VITALS: BP 102/67
[2020-04-17] MEDS: FERROUS SULFATE 325 MG EC TABLET PO SCH ×2 (06:31→16:11)
[2020-04-17] MEDS: MAGNESIUM OXIDE 400 MG TABLET PO SCH ×2 (08:08→16:11)
[2020-04-17 08:13] VITALS: BP 140/79
[2020-04-17] MEDS: LORazepam 1 MG TABLET PO PRN ×2 (08:58→16:12)
[2020-04-17 09:46] VITALS: BP 132/74
[2020-04-17] MEDS: IBUPROFEN 600 MG TABLET PO PRN (09:46)
[2020-04-17 16:25] VITALS: BP 137/84
[2020-04-17] MEDS: QUEtiapine FUMARATE 200 MG TABLET PO SCH (20:10)
[2020-04-18 01:17] VITALS: BP 140/87
[2020-04-18] MEDS: FERROUS SULFATE 325 MG EC TABLET PO SCH ×2 (06:25→16:04)
[2020-04-18 08:13] VITALS: BP 114/64
[2020-04-18] MEDS: MAGNESIUM OXIDE 400 MG TABLET PO SCH ×2 (08:13→16:04)
[2020-04-18] MEDS: LORazepam 1 MG TABLET PO PRN ×2 (09:02→16:04)
[2020-04-18] MEDS: IBUPROFEN 600 MG TABLET PO PRN (12:06)
[2020-04-18 16:07] VITALS: BP 133/78
[2020-04-18 19:50] VITALS: BP 128/75
[2020-04-18] MEDS: ACETAMINOPHEN 325 MG TABLET PO PRN (19:56)
[2020-04-18] MEDS: QUEtiapine FUMARATE 200 MG TABLET PO SCH (20:25)
[2020-04-19 00:39] VITALS: BP 153/81
[2020-04-19 04:10] VITALS: BP 135/74
[2020-04-19] MEDS: FERROUS SULFATE 325 MG EC TABLET PO SCH ×2 (06:10→16:00)
[2020-04-19] MEDS: MAGNESIUM OXIDE 400 MG TABLET PO SCH ×2 (08:07→16:00)
[2020-04-19 08:38] VITALS: BP 127/79
[2020-04-19] MEDS: LORazepam 1 MG TABLET PO PRN ×2 (09:25→16:00)
[2020-04-19 16:02] VITALS: BP 139/87
[2020-04-19] MEDS: QUEtiapine FUMARATE 200 MG TABLET PO SCH (20:02)
[2020-04-20 00:29] VITALS: BP 125/64
[2020-04-20] MEDS: FERROUS SULFATE 325 MG EC TABLET PO SCH ×2 (06:41→17:17)
[2020-04-20 08:10] VITALS: BP 129/80
[2020-04-20] MEDS: MAGNESIUM OXIDE 400 MG TABLET PO SCH ×2 (08:11→17:17)
[2020-04-20] MEDS: LORazepam 1 MG TABLET PO PRN ×2 (08:11→17:42)
[2020-04-20 16:06] VITALS: BP 126/91
[2020-04-20] MEDS: QUEtiapine FUMARATE 200 MG TABLET PO SCH (20:11)
[2020-04-21 02:19] VITALS: BP 122/78
[2020-04-21] MEDS: FERROUS SULFATE 325 MG EC TABLET PO SCH ×2 (06:31→16:01)
[2020-04-21 08:09] VITALS: BP 120/76
[2020-04-21] MEDS: MAGNESIUM OXIDE 400 MG TABLET PO SCH ×2 (08:10→16:01)
[2020-04-21] MEDS: LORazepam 1 MG TABLET PO PRN ×2 (08:10→16:01)
[2020-04-21] MEDS: ACETAMINOPHEN 325 MG TABLET PO PRN (16:01)
[2020-04-21 16:18] VITALS: BP 131/73
[2020-04-21] MEDS: QUEtiapine FUMARATE 200 MG TABLET PO SCH (20:06)
[2020-04-22] MEDS: FERROUS SULFATE 325 MG EC TABLET PO SCH ×2 (06:30→16:18)
[2020-04-22] MEDS: MAGNESIUM OXIDE 400 MG TABLET PO SCH ×2 (08:06→16:18)
[2020-04-22] MEDS: LORazepam 1 MG TABLET PO PRN ×2 (08:06→16:18)
[2020-04-22 08:14] VITALS: BP 133/67
[2020-04-22 16:08] VITALS: BP 134/81
[2020-04-22] MEDS: QUEtiapine FUMARATE 200 MG TABLET PO SCH (20:11)
[2020-04-23 04:26] VITALS: BP 122/74
[2020-04-23] MEDS: FERROUS SULFATE 325 MG EC TABLET PO SCH ×2 (06:26→16:08)
[2020-04-23 08:03] VITALS: BP 121/71
[2020-04-23] MEDS: MAGNESIUM OXIDE 400 MG TABLET PO SCH ×2 (08:07→16:08)
[2020-04-23] MEDS: LORazepam 1 MG TABLET PO PRN ×2 (08:07→16:08)
[2020-04-23 13:24] LABS: COVID AG,FIA SOURCE NASOPHARYNGEAL
[2020-04-23 16:04] VITALS: BP 140/98
[2020-04-23] MEDS: QUEtiapine FUMARATE 200 MG TABLET PO SCH (20:03)
[2020-04-24 04:53] VITALS: BP 123/75
[2020-04-24] MEDS: FERROUS SULFATE 325 MG EC TABLET PO SCH ×2 (06:36→16:03)
[2020-04-24 08:04] VITALS: BP 142/69
[2020-04-24] MEDS: MAGNESIUM OXIDE 400 MG TABLET PO SCH ×2 (08:34→16:03)
[2020-04-24] MEDS: LORazepam 1 MG TABLET PO PRN ×2 (08:35→16:03)
[2020-04-24 16:12] VITALS: BP 131/81
[2020-04-24] MEDS: QUEtiapine FUMARATE 200 MG TABLET PO SCH (20:05)
[2020-04-25 00:05] VITALS: BP 126/82
[2020-04-25] MEDS: FERROUS SULFATE 325 MG EC TABLET PO SCH ×2 (06:56→16:02)
[2020-04-25 08:07] VITALS: BP 112/65
[2020-04-25] MEDS: MAGNESIUM OXIDE 400 MG TABLET PO SCH ×2 (08:13→16:02)
[2020-04-25] MEDS: LORazepam 1 MG TABLET PO PRN ×2 (08:13→16:02)
[2020-04-25 16:08] VITALS: BP 132/79
[2020-04-25] MEDS: QUEtiapine FUMARATE 200 MG TABLET PO SCH (20:01)
[2020-04-26 00:53] VITALS: BP 126/74
[2020-04-26] MEDS: FERROUS SULFATE 325 MG EC TABLET PO SCH ×2 (06:23→16:25)
[2020-04-26] MEDS: LORazepam 1 MG TABLET PO PRN ×2 (08:00→16:24)
[2020-04-26] MEDS: MAGNESIUM OXIDE 400 MG TABLET PO SCH ×2 (08:00→16:25)
[2020-04-26 08:06] VITALS: BP 118/63
[2020-04-26 16:20] VITALS: BP 141/78
[2020-04-26] MEDS: QUEtiapine FUMARATE 200 MG TABLET PO SCH (20:20)
[2020-04-27 04:03] VITALS: BP 127/77
[2020-04-27] MEDS: FERROUS SULFATE 325 MG EC TABLET PO SCH ×2 (06:26→15:56)
[2020-04-27] MEDS: MAGNESIUM OXIDE 400 MG TABLET PO SCH ×2 (08:12→15:56)
[2020-04-27] MEDS: LORazepam 1 MG TABLET PO PRN ×2 (08:12→15:56)
[2020-04-27 08:32] VITALS: BP 111/69
[2020-04-27 16:09] VITALS: BP 136/84
[2020-04-27] MEDS: ACETAMINOPHEN 325 MG TABLET PO PRN (16:09)
[2020-04-27] MEDS: QUEtiapine FUMARATE 200 MG TABLET PO SCH (20:28)
[2020-04-28 04:34] VITALS: BP 118/76
[2020-04-28] MEDS: FERROUS SULFATE 325 MG EC TABLET PO SCH ×2 (06:34→16:54)
[2020-04-28] MEDS: LORazepam 1 MG TABLET PO PRN ×2 (08:21→17:29)
[2020-04-28] MEDS: MAGNESIUM OXIDE 400 MG TABLET PO SCH ×2 (08:21→16:54)
[2020-04-28 08:25] VITALS: BP 113/76
[2020-04-28] MEDS: IBUPROFEN 600 MG TABLET PO PRN ×2 (08:48→17:41)
[2020-04-28 16:05] VITALS: BP 128/81
[2020-04-28] MEDS: QUEtiapine FUMARATE 200 MG TABLET PO SCH (20:35)
[2020-04-29 00:17] VITALS: BP 122/77
[2020-04-29] MEDS: FERROUS SULFATE 325 MG EC TABLET PO SCH ×2 (07:18→16:12)
[2020-04-29 08:10] VITALS: BP 145/65
[2020-04-29] MEDS: MAGNESIUM OXIDE 400 MG TABLET PO SCH ×2 (08:18→16:12)
[2020-04-29] MEDS: LORazepam 1 MG TABLET PO PRN ×2 (08:19→16:12)
[2020-04-29 16:03] VITALS: BP 136/79
[2020-04-29] MEDS: QUEtiapine FUMARATE 200 MG TABLET PO SCH (20:08)
[2020-04-30 04:17] VITALS: BP 130/68
[2020-04-30] MEDS: FERROUS SULFATE 325 MG EC TABLET PO SCH ×2 (06:17→16:06)
[2020-04-30 08:00] VITALS: BP 108/62
[2020-04-30] MEDS: LORazepam 1 MG TABLET PO PRN ×2 (08:21→16:07)
[2020-04-30] MEDS: MAGNESIUM OXIDE 400 MG TABLET PO SCH ×2 (08:21→16:06)
[2020-04-30 16:28] VITALS: BP 136/82
[2020-04-30] MEDS: QUEtiapine FUMARATE 200 MG TABLET PO SCH (20:04)
[2020-05-01 00:10] VITALS: BP 128/70
[2020-05-01] MEDS: FERROUS SULFATE 325 MG EC TABLET PO SCH ×2 (06:09→16:19)
[2020-05-01] MEDS: MAGNESIUM OXIDE 400 MG TABLET PO SCH ×2 (08:10→16:19)
[2020-05-01] MEDS: LORazepam 1 MG TABLET PO PRN ×2 (08:10→16:20)
[2020-05-01 08:16] VITALS: BP 125/72
[2020-05-01 09:12] LABS: COVID AG,FIA SOURCE NASOPHARYNGEAL
[2020-05-01] MEDS: ACETAMINOPHEN 325 MG TABLET PO PRN (16:21)
[2020-05-01 16:24] VITALS: BP 141/86
[2020-05-01] MEDS: QUEtiapine FUMARATE 200 MG TABLET PO SCH (20:10)
[2020-05-02 01:23] VITALS: BP 124/80
[2020-05-02] MEDS: FERROUS SULFATE 325 MG EC TABLET PO SCH ×2 (06:35→16:07)
[2020-05-02 08:16] VITALS: BP 103/63
[2020-05-02] MEDS: LORazepam 1 MG TABLET PO PRN ×2 (08:35→16:07)
[2020-05-02] MEDS: MAGNESIUM OXIDE 400 MG TABLET PO SCH ×2 (08:35→16:07)
[2020-05-02 16:09] VITALS: BP 129/86
[2020-05-02] MEDS: QUEtiapine FUMARATE 200 MG TABLET PO SCH (20:43)
[2020-05-03 01:14] VITALS: BP 120/82
[2020-05-03] MEDS: FERROUS SULFATE 325 MG EC TABLET PO SCH (06:09)
[2020-05-03 08:12] VITALS: BP 108/62
[2020-05-03] MEDS: MAGNESIUM OXIDE 400 MG TABLET PO SCH (08:20)
[2020-05-03] MEDS ORDERED: MAGN400T29 PO (09:37)
[2020-05-03] MEDS ORDERED: FERR-89 PO (09:37)
== END 2020-05-03 11:46 | disposition other institution, planned readmission (95) | DRG 750 ==
LOC: B3A 15:15
PROVIDERS: ADMIT Psychiatry & Neurology Psychiatry; ATTEND Psychiatry & Neurology Psychiatry
DX: F20.0 Paranoid schizophrenia (principal); Z20.822 Contact with and (suspected) exposure to COVID-19; F19.129 Other psychoactive substance abuse with intoxication, unspecified; F15.10 Other stimulant abuse, uncomplicated; F41.9 Anxiety disorder, unspecified; K21.9 Gastro-esophageal reflux disease without esophagitis; G47.00 Insomnia, unspecified; E55.9 Vitamin D deficiency, unspecified; Z88.8 Allergy status to other drugs, medicaments and biological substances; Z91.19 Patient's noncompliance with other medical treatment and regimen; Z72.0 Tobacco use
CPT/HCPCS: 80307; 83036; 83540; 83550; 83735; 84100; 85007; 87086; 87426; J2060

== ENCOUNTER 2020-02-13 10:35 | Emergency (ER) | payer MEDICAID, OTHER ==
[~2020-02-13] VITALS: Ht 170.2 cm; Wt 72.7 kg
[2020-02-13 11:41] VITALS: BP 129/87
[2020-02-13 12:51] LABS: BASOPHILS % (AUTO) 0.4 % (0.0-2.0); EOSINOPHILS % (AUTO) 3.7 % (1.0-6.0); HEMATOCRIT 40.3 % (36-46); HEMOGLOBIN 13.7 g/dL (12.0-16.0); LYMPHOCYTES # (AUTO) 2.5 K/uL (1.0-4.8); LYMPHOCYTES % (AUTO) 33.6 % (22.0-44.0); MEAN CORPUSCULAR HEMOGLOBIN 30.2 pg (26.0-34.0); MEAN CORPUSCULAR HGB CONC 34.1 G/dL (31.0-37.0); MEAN CORPUSCULAR VOLUME 89 fL (80-100); MONOCYTES # (AUTO) 0.6 K/uL (0.1-1.0); MONOCYTES % (AUTO) 7.6 % (2.0-9.0); NEUTROPHILS % (AUTO) 54.7 % (40.0-70.0); PLATELET COUNT (AUTO) 212 K/uL (150-450); RED BLOOD CELL COUNT(AUTO) 4.54 MIL/uL (4.00-5.20); RED CELL DISTRIBUTION WIDTH 13.6 % (11.5-14.5)
[2020-02-13 12:52] LABS: COVID AG,FIA SOURCE NASOPHARYNGEAL
[2020-02-13 13:00] LABS: ANION GAP 6 mmol/L (8-16); CALCIUM, TOTAL 9.5 mg/dL (8.8-10.5); CARBON DIOXIDE 32 mmol/L (22-29); CHLORIDE 99 mmol/L (98-107); CREATININE 0.82 mg/dL (0.60-1.30); GLOMERULAR FILTR. RATE CALC > 60 mL/min (>60); GLUCOSE,RANDOM 120 mg/dL (70-110); POTASSIUM 3.8 mmol/L (3.5-5.1); SODIUM SERUM 137 mmol/L (136-145); UREA NITROGEN, BLOOD 20 mg/dL (7-18)
[2020-02-13 13:06] LABS: ALANINE AMINOTRANSFERASE 19 U/L (12-78); ALBUMIN 3.9 g/dL (3.4-5.0); ALKALINE PHOSPHATASE 60 U/L (46-116); ASPARTATE AMINOTRANSFERASE 27 U/L (15-37); BILIRUBIN,TOTAL 0.5 mg/dL (0.1-1.0); TOTAL PROTEIN, SERUM 7.4 g/dL (6.4-8.2)
[2020-02-13 17:13] LABS: AMPHET/METH SCREEN,URINE POSITIVE (NEGATIVE); BARBITURATE SCREEN, URINE NEGATIVE (NEGATIVE); BENZODIAZEPINES SCREEN,URINE NEGATIVE (NEGATIVE); CANNABINOID SCREEN,URINE NEGATIVE (NEGATIVE); COCAINE SCREEN,URINE NEGATIVE (NEGATIVE); METHADONE SCREEN, URINE NEGATIVE (NEGATIVE); OPIATE SCREEN,URINE NEGATIVE (NEGATIVE)
[2020-02-13 17:14] LABS: PHENCYCLIDINE SCREEN,URINE NEGATIVE (NEGATIVE)
== END 2020-02-13 16:58 | disposition home or self-care (01) ==
LOC: EMS 10:39
DX: F20.9 Schizophrenia, unspecified (principal); Z20.828 Contact with and (suspected) exposure to other viral communicable diseases
CPT/HCPCS: 36415; 80053; 80307; 85025; 87426; 99284; G0480

== ENCOUNTER 2023-04-23 12:00 | Inpatient (IN) | payer MEDICAID ==
[~2023-04-23] VITALS: Ht 170.2 cm; Wt 45.1 kg
[~2023-04-23 12:00] MED LIST changes: +FERR325T27 PO; +MAGN400T29 PO
[2023-04-23 12:43] LABS: COVID AG,FIA SOURCE NASAL SWAB
[2023-04-23 12:54] LABS: ANION GAP 11 mmol/L (8-16); CALCIUM, TOTAL 8.8 mg/dL (8.8-10.5); CARBON DIOXIDE 24 mmol/L (22-29); CHLORIDE 104 mmol/L (98-107); CREATININE 0.62 mg/dL (0.60-1.30); GLOMERULAR FILTR. RATE CALC > 60 mL/min (>60); GLUCOSE,RANDOM 121 mg/dL (70-110); POTASSIUM 3.9 mmol/L (3.5-5.1); SODIUM SERUM 139 mmol/L (136-145); UREA NITROGEN, BLOOD 15 mg/dL (7-18)
[2023-04-23] MEDS ORDERED: LORazepam 2 MG TABLET PO ONE (13:00)
[2023-04-23] MEDS ORDERED: HALOPERIDOL 5 MG TABLET PO ONE (13:00)
[2023-04-23 13:01] LABS: ALANINE AMINOTRANSFERASE 40 U/L (12-78); ALBUMIN 3.9 g/dL (3.4-5.0); ALKALINE PHOSPHATASE 64 U/L (46-116); ASPARTATE AMINOTRANSFERASE 31 U/L (15-37); BILIRUBIN,TOTAL 0.3 mg/dL (0.1-1.0); TOTAL PROTEIN, SERUM 6.8 g/dL (6.4-8.2)
[2023-04-23 13:03] LABS: ALCOHOL, BLOOD (SERUM) < 3 mg/dL (0-10)
[2023-04-23 13:15] LABS: SARS-COV2 (COVID) ANTIGEN,FIA Negative (Negative)
[2023-04-23 13:19] LABS: BASOPHILS % (AUTO) 0.6 % (0.0-2.0); EOSINOPHILS % (AUTO) 2.5 % (1.0-6.0); HEMATOCRIT 35.8 % (36-46); HEMOGLOBIN 12.1 g/dL (12.0-16.0); LYMPHOCYTES # (AUTO) 1.7 K/uL (1.0-4.8); LYMPHOCYTES % (AUTO) 44.5 % (22.0-44.0); MEAN CORPUSCULAR HEMOGLOBIN 29.8 pg (26.0-34.0); MEAN CORPUSCULAR HGB CONC 33.8 G/dL (31.0-37.0); MEAN CORPUSCULAR VOLUME 88 fL (80-100); MONOCYTES # (AUTO) 0.3 K/uL (0.1-1.0); MONOCYTES % (AUTO) 8.4 % (2.0-9.0); NEUTROPHILS # (AUTO) 1.7 K/uL (1.8-7.7); PLATELET COUNT (AUTO) 167 K/uL (150-450); RED BLOOD CELL COUNT(AUTO) 4.06 MIL/uL (4.00-5.20); RED CELL DISTRIBUTION WIDTH 14.6 % (11.5-14.5); WHITE BLOOD COUNT (AUTO) 3.8 K/uL (4.5-11.0)
[2023-04-23] MEDS ORDERED: HALOPERIDOL 5 MG TABLET PO PRN (13:30)
[2023-04-23] MEDS ORDERED: LORazepam 2 MG TABLET PO PRN (13:30)
[2023-04-23] MEDS ORDERED: ZOLPIDEM TARTRATE 10 MG TABLET PO PRN (13:30)
[2023-04-23 14:55] LABS: APPEARANCE,URINE CLEAR (CLEAR); BILIRUBIN,URINE NEGATIVE (NEGATIVE); COLOR,URINE YELLOW (YELLOW); GLUCOSE, URINE (UA) NEGATIVE (NEGATIVE); KETONES,URINE NEGATIVE (NEGATIVE); LEUKOCYTE ESTERASE ,URINE NEGATIVE (NEGATIVE); NITRATE,URINE NEGATIVE (NEGATIVE); OCCULT BLOOD,URINE NEGATIVE (NEGATIVE); PH,URINE 6.5 (5.0-8.0); PROTEIN,URINE TRACE mg/dL (NEGATIVE); SPECIFIC GRAVITIY, URINE 1.035 (1.003-1.030); UROBILINOGEN,URINE <=1.0 mg/dL (<=1.0)
[2023-04-23 15:02] LABS: ALCOHOL, URINE DRUG SCREEN NEGATIVE (NEGATIVE); AMPHET/METH SCREEN,URINE NEGATIVE (NEGATIVE); BARBITURATE SCREEN, URINE NEGATIVE (NEGATIVE); BENZODIAZEPINES SCREEN,URINE NEGATIVE (NEGATIVE); CANNABINOID SCREEN,URINE NEGATIVE (NEGATIVE); COCAINE SCREEN,URINE NEGATIVE (NEGATIVE); METHADONE SCREEN, URINE NEGATIVE (NEGATIVE); OPIATE SCREEN,URINE NEGATIVE (NEGATIVE); PHENCYCLIDINE SCREEN,URINE NEGATIVE (NEGATIVE)
[2023-04-23 15:16] LABS: PH,URINE DRUG SCREEN 6.5 (5.0-8.0)
[2023-04-23 17:46] VITALS: BP 164/80; PULSE 66; RESP 18; TEMP 96.9; O2SAT 99
[2023-04-23 20:30] VITALS: RESP 18
[2023-04-24] MEDS ORDERED: MAG HYDROX/ALUMINUM HYD/SIMETH ES 30 ML SUSPENSION UDCUP PO PRN (06:30)
[2023-04-24] MEDS ORDERED: ONDANSETRON HCL 4 MG TABLET PO PRN (06:30)
[2023-04-24] MEDS ORDERED: PETROLATUM,WHITE 28 GM JELLY TP PRN (06:30)
[2023-04-24] MEDS ORDERED: DOCUSATE SODIUM 100 MG CAPSULE PO PRN (06:30)
[2023-04-24] MEDS ORDERED: MAGNESIUM HYDROXIDE SUSPENSION 30 ML UDCUP PO PRN (06:30)
[2023-04-24] MEDS ORDERED: CloNIDine HCL 0.1 MG TABLET PO PRN (06:30)
[2023-04-24] MEDS ORDERED: IBUPROFEN 400 MG TABLET PO PRN (06:30)
[2023-04-24] MEDS ORDERED: LOPERAMIDE HCL 2 MG CAPSULE PO PRN (06:30)
[2023-04-24] MEDS ORDERED: NICOTINE 14 MG/24 HOUR PATCH TD PRN (06:30)
[2023-04-24] MEDS ORDERED: ACETAMINOPHEN 325 MG TABLET PO PRN (06:30)
[2023-04-24] MEDS ORDERED: GuaiFENesin/D-METHORPHAN [SUGAR-FREE] 200-20MG/10 ML SYRUP UDCUP PO PRN (06:30)
[2023-04-24] MEDS: FERROUS SULFATE 325 MG EC TABLET PO SCH ×2 (06:58→18:06)
[2023-04-24 20:19] VITALS: BP 144/78; PULSE 59; RESP 18; TEMP 97.6; O2SAT 98
[2023-04-24 20:26] VITALS: RESP 18
[2023-04-24] MEDS: QUEtiapine FUMARATE 200 MG TABLET PO SCH (20:46)
[2023-04-25] MEDS: FERROUS SULFATE 325 MG EC TABLET PO SCH ×2 (06:46→17:22)
[2023-04-25 08:49] VITALS: BP 134/81; PULSE 83; RESP 17; TEMP 97; O2SAT 98
[2023-04-25 12:08] LABS: THYROID STIMULATING HORMONE 0.92 uIU/mL (0.36-3.74)
[2023-04-25 12:24] LABS: HEMOGLOBIN A1C 5.5 % (3.8-5.6)
[2023-04-25 20:01] VITALS: BP 153/102; PULSE 87; RESP 18; TEMP 96.3; O2SAT 97
[2023-04-25] MEDS: QUEtiapine FUMARATE 200 MG TABLET PO SCH (20:44)
[2023-04-26] MEDS: FERROUS SULFATE 325 MG EC TABLET PO SCH (06:43)
[2023-04-26 08:01] LABS: CHOL/HDL RATIO 2.9 (3.9-5.7)
[2023-04-26 08:25] VITALS: BP 114/72; PULSE 68; RESP 17; TEMP 97; O2SAT 97
[2023-04-26] MEDS ORDERED: QUET200T30 PO (10:42)
== END 2023-04-26 13:00 | disposition home or self-care (01) | DRG 750 ==
LOC: EMS 12:00 → 3EC 15:47
PROVIDERS: ADMIT Psychiatry & Neurology Psychiatry; ATTEND Psychiatry & Neurology Psychiatry
DX: F20.0 Paranoid schizophrenia (principal); R45.851 Suicidal ideations; D64.9 Anemia, unspecified; K21.9 Gastro-esophageal reflux disease without esophagitis; D72.819 Decreased white blood cell count, unspecified; R73.9 Hyperglycemia, unspecified; R03.0 Elevated blood-pressure reading, without diagnosis of hypertension; Z20.822 Contact with and (suspected) exposure to COVID-19; F19.10 Other psychoactive substance abuse, uncomplicated; E55.9 Vitamin D deficiency, unspecified; Z91.51 Personal history of suicidal behavior; Z79.899 Other long term (current) drug therapy; Z88.8 Allergy status to other drugs, medicaments and biological substances
CPT/HCPCS: 80053; 80061; 80307; 81003; 83036; 84443; 84703; 85025; 99285; G0480

== ENCOUNTER 2023-05-02 14:57 | Inpatient (IN) | payer MEDICAID ==
[~2023-05-02] VITALS: Ht 170.2 cm; Wt 99.0 kg
[~2023-05-02 14:57] MED LIST changes: -QUET200T PO; +QUET200T30 PO
[2023-05-02] MEDS ORDERED: HALOPERIDOL LACTATE 5 MG/ML VIAL IM ONE (16:00)
[2023-05-02] MEDS ORDERED: DiphenhydrAMINE HCL 50 MG/ML VIAL IM ONE (16:00)
[2023-05-02] MEDS ORDERED: LORazepam 2 MG/ML VIAL IM ONE (16:00)
[2023-05-02 16:16] LABS: COVID AG,FIA SOURCE NASAL SWAB
[2023-05-02 16:26] LABS: BASOPHILS % (AUTO) 0.7 % (0.0-2.0); EOSINOPHILS % (AUTO) 1.9 % (1.0-6.0); HEMATOCRIT 40.1 % (36-46); HEMOGLOBIN 13.3 g/dL (12.0-16.0); LYMPHOCYTES # (AUTO) 2.7 K/uL (1.0-4.8); LYMPHOCYTES % (AUTO) 36.8 % (22.0-44.0); MEAN CORPUSCULAR HGB CONC 33.2 G/dL (31.0-37.0); MEAN CORPUSCULAR VOLUME 87 fL (80-100); MONOCYTES # (AUTO) 0.5 K/uL (0.1-1.0); MONOCYTES % (AUTO) 7.5 % (2.0-9.0); NEUTROPHILS # (AUTO) 3.9 K/uL (1.8-7.7); NEUTROPHILS % (AUTO) 53.1 % (40.0-70.0); PLATELET COUNT (AUTO) 199 K/uL (150-450); RED BLOOD CELL COUNT(AUTO) 4.59 MIL/uL (4.00-5.20); RED CELL DISTRIBUTION WIDTH 14.7 % (11.5-14.5); WHITE BLOOD COUNT (AUTO) 7.3 K/uL (4.5-11.0)
[2023-05-02 16:36] LABS: ANION GAP 12 mmol/L (8-16); CALCIUM, TOTAL 9.5 mg/dL (8.8-10.5); CARBON DIOXIDE 26 mmol/L (22-29); CHLORIDE 104 mmol/L (98-107); CREATININE 0.67 mg/dL (0.60-1.30); GLOMERULAR FILTR. RATE CALC > 60 mL/min (>60); GLUCOSE,RANDOM 87 mg/dL (70-110); POTASSIUM 3.7 mmol/L (3.5-5.1); SODIUM SERUM 142 mmol/L (136-145); UREA NITROGEN, BLOOD 16 mg/dL (7-18)
[2023-05-02 16:38] LABS: SARS-COV2 (COVID) ANTIGEN,FIA Negative (Negative)
[2023-05-02 16:43] LABS: ALANINE AMINOTRANSFERASE 26 U/L (12-78); ALBUMIN 4.4 g/dL (3.4-5.0); ALKALINE PHOSPHATASE 73 U/L (46-116); ASPARTATE AMINOTRANSFERASE 20 U/L (15-37); BILIRUBIN,TOTAL 0.3 mg/dL (0.1-1.0); TOTAL PROTEIN, SERUM 7.3 g/dL (6.4-8.2)
[2023-05-02 17:03] LABS: ALCOHOL, BLOOD (SERUM) < 3 mg/dL (0-10)
[2023-05-02] MEDS ORDERED: LORazepam 2 MG TABLET PO PRN (18:15)
[2023-05-02] MEDS ORDERED: HALOPERIDOL 5 MG TABLET PO PRN (18:15)
[2023-05-02] MEDS ORDERED: INFLUENZA VIRUS VACCINE QVS 2023-24 (6MO+)/PF 60 MCG/0.5 ML SYRINGE IM. ONE (21:15)
[2023-05-02] MEDS ORDERED: PNEUMOCOCCAL VACCINE POLYVALENT 0.5 ML SYRINGE [PPSV23] IM. ONE (21:15)
[2023-05-03] MEDS ORDERED: LOPERAMIDE HCL 2 MG CAPSULE PO PRN (06:15)
[2023-05-03] MEDS ORDERED: BENZOCAINE/MENTHOL LOZENGE PO PRN (06:15)
[2023-05-03] MEDS ORDERED: PETROLATUM,WHITE 28 GM JELLY TP PRN (06:15)
[2023-05-03] MEDS ORDERED: ACETAMINOPHEN 325 MG TABLET PO PRN (06:15)
[2023-05-03] MEDS ORDERED: DOCUSATE SODIUM 100 MG CAPSULE PO PRN (06:15)
[2023-05-03] MEDS ORDERED: ONDANSETRON HCL 4 MG TABLET PO PRN (06:15)
[2023-05-03] MEDS ORDERED: CloNIDine HCL 0.1 MG TABLET PO PRN (06:15)
[2023-05-03] MEDS ORDERED: IBUPROFEN 600 MG TABLET PO PRN (06:15)
[2023-05-03] MEDS ORDERED: MAGNESIUM HYDROXIDE SUSPENSION 30 ML UDCUP PO PRN (06:15)
[2023-05-03] MEDS ORDERED: BACITRACIN 28 GM OINTMENT TP PRN (06:15)
[2023-05-03] MEDS ORDERED: OMEPRAZOLE 20 MG CAPSULE PO PRN (06:15)
[2023-05-03] MEDS ORDERED: ALBUTEROL SULFATE HFA 90 MCG/PUFF 8 GM INHALER IH PRN (06:15)
[2023-05-03] MEDS ORDERED: MAG HYDROX/ALUMINUM HYD/SIMETH ES 30 ML SUSPENSION UDCUP PO PRN (06:15)
[2023-05-03 08:12] VITALS: BP 124/73; PULSE 86; RESP 18; TEMP 98.3; O2SAT 97
[2023-05-03 20:09] VITALS: BP 120/71; PULSE 76; RESP 17; TEMP 98.4; O2SAT 98
[2023-05-03] MEDS: QUEtiapine FUMARATE 200 MG TABLET PO SCH (20:33)
[2023-05-04 08:21] VITALS: BP 112/65; PULSE 74; RESP 18; TEMP 97.6; O2SAT 99
[2023-05-04 08:35] LABS: APPEARANCE,URINE CLEAR (CLEAR); BILIRUBIN,URINE NEGATIVE (NEGATIVE); COLOR,URINE LIGHT YELLOW (YELLOW); GLUCOSE, URINE (UA) NEGATIVE (NEGATIVE); KETONES,URINE NEGATIVE (NEGATIVE); LEUKOCYTE ESTERASE ,URINE NEGATIVE (NEGATIVE); NITRATE,URINE NEGATIVE (NEGATIVE); OCCULT BLOOD,URINE NEGATIVE (NEGATIVE); PH,URINE 7.5 (5.0-8.0); PH,URINE DRUG SCREEN 7.5 (5.0-8.0); PROTEIN,URINE NEGATIVE (NEGATIVE); SPECIFIC GRAVITIY, URINE 1.023 (1.003-1.030); UROBILINOGEN,URINE <=1.0 mg/dL (<=1.0)
[2023-05-04 08:49] LABS: ALCOHOL, URINE DRUG SCREEN NEGATIVE (NEGATIVE); BARBITURATE SCREEN, URINE NEGATIVE (NEGATIVE); BENZODIAZEPINES SCREEN,URINE NEGATIVE (NEGATIVE); CANNABINOID SCREEN,URINE NEGATIVE (NEGATIVE); COCAINE SCREEN,URINE NEGATIVE (NEGATIVE); METHADONE SCREEN, URINE NEGATIVE (NEGATIVE); OPIATE SCREEN,URINE NEGATIVE (NEGATIVE); PHENCYCLIDINE SCREEN,URINE NEGATIVE (NEGATIVE)
[2023-05-04 08:58] LABS: AMPHET/METH SCREEN,URINE NEGATIVE (NEGATIVE)
[2023-05-04] MEDS: QUEtiapine FUMARATE 200 MG TABLET PO SCH (21:25)
[2023-05-04 22:02] VITALS: BP 127/77; PULSE 66; RESP 18; TEMP 97.6; O2SAT 97
[2023-05-05 07:07] LABS: HEPATITIS C AB (EIA) Non Reactive (Non Reactive)
[2023-05-05 08:07] VITALS: BP 140/70; PULSE 64; RESP 18; TEMP 98; O2SAT 99
[2023-05-05 20:27] VITALS: BP 144/73; PULSE 62; RESP 18; TEMP 97.8; O2SAT 98
[2023-05-05] MEDS: QUEtiapine FUMARATE 200 MG TABLET PO SCH (21:04)
[2023-05-06 10:05] VITALS: BP 121/80; PULSE 54; RESP 20; TEMP 97; O2SAT 99
[2023-05-06] MEDS: QUEtiapine FUMARATE 200 MG TABLET PO SCH (20:09)
[2023-05-06 20:26] VITALS: BP 112/63; PULSE 68; RESP 18; TEMP 97.9; O2SAT 98
[2023-05-07 08:09] VITALS: BP 121/66; PULSE 74; RESP 16; TEMP 98; O2SAT 97
[2023-05-07 20:17] VITALS: BP 116/69; PULSE 58; RESP 17; TEMP 97.5; O2SAT 97
[2023-05-07] MEDS: QUEtiapine FUMARATE 200 MG TABLET PO SCH (20:34)
[2023-05-08 08:32] VITALS: BP 114/62; PULSE 69; RESP 16; TEMP 97.9; O2SAT 96
[2023-05-08] MEDS ORDERED: QUET200T PO ×2 (12:41→15:27)
[2023-05-08] MEDS ORDERED: TRIA15CR49 TP (15:25)
[2023-05-08] MEDS ORDERED: TRIAMCINOLONE 0.1% 60 ML LOTION TP SCH (17:00)
== END 2023-05-08 18:22 | disposition left against medical advice (07) | DRG 750 ==
LOC: EMS 14:58 → B3A 19:57
PROVIDERS: ADMIT Psychiatry & Neurology Psychiatry; ATTEND Psychiatry & Neurology Psychiatry
DX: F25.9 Schizoaffective disorder, unspecified (principal); E55.9 Vitamin D deficiency, unspecified; F31.9 Bipolar disorder, unspecified; K21.9 Gastro-esophageal reflux disease without esophagitis; Z53.29 Procedure and treatment not carried out because of patient's decision for other reasons; Z20.822 Contact with and (suspected) exposure to COVID-19; R51.9 Headache, unspecified; F41.9 Anxiety disorder, unspecified; G47.00 Insomnia, unspecified; Z88.8 Allergy status to other drugs, medicaments and biological substances; Z79.899 Other long term (current) drug therapy; Z72.0 Tobacco use
CPT/HCPCS: 80053; 80307; 81003; 85025; 86803; 87081; 87340; 99291; G0480; J1200; J1630; J2060

== ENCOUNTER 2023-11-22 14:11 | Inpatient (IN) | payer MEDICAID ==
[~2023-11-22] VITALS: Ht 172.7 cm; Wt 108.2 kg
[~2023-11-22 14:11] MED LIST changes: -FERR325T27 PO; -MAGN400T29 PO; +QUET200T PO; -QUET200T30 PO; +TRIA15CR49 TP
[2023-11-22] MEDS ORDERED: QUET25TA PO (15:24)
[2023-11-22] MEDS ORDERED: ZIPR40CA38 PO (15:24)
[2023-11-22] MEDS ORDERED: OXYB5TAB20 PO (15:24)
[2023-11-22 17:12] VITALS: BP 141/94; PULSE 67; RESP 18; TEMP 98.1; O2SAT 98
[2023-11-22] MEDS: LORazepam 2 MG TABLET PO PRN (17:47)
[2023-11-22] MEDS: HALOPERIDOL 5 MG TABLET PO PRN (17:47)
[2023-11-22] MEDS ORDERED: BENZOCAINE/MENTHOL LOZENGE PO PRN (19:15)
[2023-11-22] MEDS ORDERED: BACITRACIN 28 GM OINTMENT TP PRN (19:15)
[2023-11-22] MEDS ORDERED: IBUPROFEN 600 MG TABLET PO PRN (19:15)
[2023-11-22] MEDS ORDERED: MAGNESIUM HYDROXIDE SUSPENSION 30 ML UDCUP PO PRN (19:15)
[2023-11-22] MEDS ORDERED: CloNIDine HCL 0.1 MG TABLET PO PRN (19:15)
[2023-11-22] MEDS ORDERED: ALBUTEROL SULFATE HFA 90 MCG/PUFF 8 GM INHALER IH PRN (19:15)
[2023-11-22] MEDS ORDERED: OMEPRAZOLE 20 MG CAPSULE PO PRN (19:15)
[2023-11-22] MEDS ORDERED: PETROLATUM,WHITE 28 GM JELLY TP PRN (19:15)
[2023-11-22] MEDS ORDERED: LOPERAMIDE HCL 2 MG CAPSULE PO PRN (19:15)
[2023-11-22] MEDS ORDERED: ONDANSETRON HCL 4 MG TABLET PO PRN (19:15)
[2023-11-22] MEDS ORDERED: DOCUSATE SODIUM 100 MG CAPSULE PO PRN (19:15)
[2023-11-22] MEDS: ACETAMINOPHEN 325 MG TABLET PO PRN (19:37)
[2023-11-22 20:26] VITALS: BP 135/80; PULSE 96; RESP 18; TEMP 98.3; O2SAT 97
[2023-11-22] MEDS: ZOLPIDEM TARTRATE 10 MG TABLET PO PRN (20:58)
[2023-11-23 07:57] VITALS: BP 151/90; PULSE 76; RESP 16; TEMP 98; O2SAT 95
[2023-11-23 08:00] VITALS: BP 151/90; PULSE 76; RESP 16; TEMP 98; O2SAT 95
[2023-11-23 08:06] LABS: BASOPHILS % (AUTO) 0.6 % (0.0-2.0); EOSINOPHILS % (AUTO) 5.1 % (1.0-6.0); HEMATOCRIT 38.6 % (36-46); HEMOGLOBIN 12.9 g/dL (12.0-16.0); LYMPHOCYTES # (AUTO) 1.6 K/uL (1.0-4.8); LYMPHOCYTES % (AUTO) 32.7 % (22.0-44.0); MEAN CORPUSCULAR HEMOGLOBIN 28.4 pg (26.0-34.0); MEAN CORPUSCULAR HGB CONC 33.3 G/dL (31.0-37.0); MEAN CORPUSCULAR VOLUME 85 fL (80-100); MONOCYTES # (AUTO) 0.4 K/uL (0.1-1.0); MONOCYTES % (AUTO) 8.4 % (2.0-9.0); NEUTROPHILS # (AUTO) 2.6 K/uL (1.8-7.7); NEUTROPHILS % (AUTO) 53.2 % (40.0-70.0); PLATELET COUNT (AUTO) 177 K/uL (150-450); RED BLOOD CELL COUNT(AUTO) 4.53 MIL/uL (4.00-5.20); RED CELL DISTRIBUTION WIDTH 15.7 % (11.5-14.5); WHITE BLOOD COUNT (AUTO) 4.8 K/uL (4.5-11.0)
[2023-11-23 08:17] LABS: ALCOHOL, BLOOD (SERUM) < 3 mg/dL (0-10)
[2023-11-23 08:25] LABS: ALANINE AMINOTRANSFERASE 34 U/L (12-78); ALBUMIN 3.2 g/dL (3.4-5.0); ALKALINE PHOSPHATASE 84 U/L (46-116); ANION GAP 9 mmol/L (8-16); ASPARTATE AMINOTRANSFERASE 27 U/L (15-37); BILIRUBIN,TOTAL 0.4 mg/dL (0.1-1.0); CALCIUM, TOTAL 8.7 mg/dL (8.8-10.5); CARBON DIOXIDE 25 mmol/L (22-29); CHLORIDE 103 mmol/L (98-107); CHOL/HDL RATIO 2.6 (3.9-5.7); CHOLESTEROL 181 mg/dL (131-200); CREATININE 0.61 mg/dL (0.60-1.30); GLOMERULAR FILTR. RATE CALC > 60 mL/min (>60); GLUCOSE,RANDOM 98 mg/dL (70-110); HDL CHOLESTEROL 69 mg/dL (40-60); LDL CHOL (CALC.) 84 mg/dL (0-130); POTASSIUM 4.1 mmol/L (3.5-5.1); SODIUM SERUM 137 mmol/L (136-145); TOTAL PROTEIN, SERUM 6.6 g/dL (6.4-8.2); TRIGLYCERIDES 142 mg/dL (15-150); UREA NITROGEN, BLOOD 14 mg/dL (7-18)
[2023-11-23] MEDS: DIVALPROEX SODIUM 500 MG DR TABLET PO ONE (13:26)
[2023-11-23] MEDS: QUEtiapine FUMARATE 100 MG TABLET PO ONE (13:26)
[2023-11-23] MEDS: QUEtiapine FUMARATE 200 MG TABLET PO SCH (20:09)
[2023-11-23 20:12] VITALS: BP 149/91; PULSE 79; RESP 16; TEMP 97.1; O2SAT 95
[2023-11-24] MEDS: DIVALPROEX SODIUM 500 MG DR TABLET PO SCH (08:12)
[2023-11-24] MEDS: LISINOPRIL 10 MG TABLET PO SCH (08:12)
[2023-11-24] MEDS: QUEtiapine FUMARATE 100 MG TABLET PO SCH (08:12)
[2023-11-24 08:23] VITALS: BP 143/92; PULSE 79; RESP 16; TEMP 97.8; O2SAT 96
[2023-11-24] MEDS: MAG HYDROX/ALUMINUM HYD/SIMETH ES 30 ML SUSPENSION UDCUP PO PRN (18:37)
[2023-11-24 20:11] VITALS: BP 140/97; PULSE 73; RESP 20; TEMP 98.2; O2SAT 97
[2023-11-25 08:27] VITALS: BP 119/69; PULSE 77; RESP 16; TEMP 97.8; O2SAT 97
[2023-11-25 21:25] VITALS: BP 146/83; PULSE 65; RESP 18; TEMP 97.5; O2SAT 96
[2023-11-26 08:12] VITALS: BP 115/63; PULSE 74; RESP 16; TEMP 97.9; O2SAT 96
[2023-11-26] MEDS ORDERED: QUET100T PO (13:26)
[2023-11-26] MEDS ORDERED: DIVA-112 PO ×2 (13:26→15:39)
[2023-11-26] MEDS ORDERED: LISI-661 PO (13:27)
[2023-11-26] MEDS ORDERED: QUET100T34 PO (15:39)
[2023-11-26] MEDS ORDERED: QUET200T30 PO (15:40)
== END 2023-11-26 17:27 | disposition home or self-care (01) | DRG 751 ==
LOC: B3A 15:17
PROVIDERS: ADMIT Psychiatry & Neurology Child & Adolescent Psychiatry; ATTEND Psychiatry & Neurology Child & Adolescent Psychiatry
PROC: GZ52ZZZ Individual Psychotherapy, Cognitive (ICD-10-PCS; principal; 2023-11-23)
PROC: GZ56ZZZ Individual Psychotherapy, Supportive (ICD-10-PCS; 2023-11-23)
DX: F29 Unspecified psychosis not due to a substance or known physiological condition (principal); E55.9 Vitamin D deficiency, unspecified; F41.9 Anxiety disorder, unspecified; I10 Essential (primary) hypertension; K21.9 Gastro-esophageal reflux disease without esophagitis; Z72.0 Tobacco use; R06.02 Shortness of breath; Z88.8 Allergy status to other drugs, medicaments and biological substances
CPT/HCPCS: 80053; 80061; 85025; 86592; G0480